=== PATIENT | female | born 1980 | race Caucasian/White ===

== ENCOUNTER → 2016-12-01 | Outpatient (CLI) | payer OTHER ==
[~2016-12-01] MED LIST: ACHD5005 PO; AGM875T PO; ALBU17AE23 IH; ALBU8.5H2 IH; ALPR1T; ALPR1T PO; ALPR1TAB; ALPR2TAB2 PO; AMOX500C2 PO; ARPZ30T PO; BUTA1TAB44 PO; CMBV14.7IN; CPR500T PO; CYCL10TA9 PO; DIAZ10TA PO; DIAZ5TAB3 PO; DOXY100C2 PO; DPH25C; HYDR-34 PO; HYDR-3720 PO; HYDR1TAB PO; HYOS0.3710 PO; IBP800T; IBP800T PO; MECL25TA3 PO; METR500T PO; NAPR-243 PO; NF-CARBAMX; ONDN4T PO; ORPH100T PO; OXYC-12 PO; PRCD5U PO; PRD20T PO; PRD50T PO; PRM25T PO; SCOP1PAT TD; SULF1TAB38 PO; TBR.3OO OU; TRM50T PO; ZPR80C PO
--- NOTE | 2016-12-01 14:03 | Diagnostic Imaging Report ---
EXAMINATION: Bilateral breast ultrasound. INDICATION: Bilateral breast pain. Swelling of the right breast. Asymmetry along the lateral aspect of the left breast. FINDINGS: The four-quadrants and retroareolar region of each breast were scanned. In the left breast at the 3 o'clock zone 7 cm from the nipple, there is a cluster of cysts seen measuring 1.3 x 0.8 x 0.9 cm in size. This is located 7 cm from the nipple. The location and size of this abnormality match the asymmetry seen on mammography. There is no suspicious solid mass seen. In the right breast at the 10 o'clock zone 7 cm from the nipple, there is a subcentimeter simple cyst seen. No suspicious lesion is noted. IMPRESSION: No suspicious abnormality. A cluster of cysts along the left breast at the 3 o'clock zone appears to explain the lateral left breast asymmetry seen on mammography with no suspicious lesion identified. No underlying lesion to explain the right breast enlargement. Clinical followup is recommended. If this is a transient inflammatory or infectious process that resolves, then no need for further imaging. If this persists, however, or is associated with suspicious clinical signs, then consider evaluation with breast MRI. ACR BI-RADS Category 2: Benign findings. Dictated by: Dictated on workstation # [id number]
--- NOTE | 2016-12-01 18:05 | Diagnostic Imaging Report ---
EXAMINATION: Bilateral diagnostic mammogram. The current study was also evaluated with a Computer Aided Detection (CAD) system. INDICATION: Right breast swelling. FINDINGS: The breasts are composed of heterogeneously dense parenchyma which may decrease mammographic sensitivity. The right breast overall appears larger compared to the left breast with no discrete mass. In the outer aspect of the left breast, there is an oval asymmetry which measures approximately 1.2 cm in length with a suggestion of a fatty hilum. Benign-appearing calcifications are noted. IMPRESSION: The right breast is overall larger compared to the left breast. There is a lateral 1.2 cm elongated left breast asymmetry. Ultrasound evaluation pending. ACR BI-RADS Category 0: Incomplete. (Needs additional imaging evaluation). Result letter will be mailed to the patient. Note: At least 10% of breast cancer is not imaged by mammography. Dictated by: Dictated on workstation # [id number]
== END ==
LOC: RAD 08:33
PROVIDERS: ATTEND Nurse Practitioner Family
DX: N60.12 Diffuse cystic mastopathy of left breast (principal)
CPT/HCPCS: 77066

== ENCOUNTER → 2018-03-04 | Outpatient (CLI) | payer OTHER ==
[~2018-03-04] MED LIST changes: -SCOP1PAT TD; +SCOP1PAT11 TD
--- NOTE | 2018-03-04 18:24 | Diagnostic Imaging Report ---
INDICATION: Fall. EXAMINATION: Three views of the left knee were obtained. FINDINGS: The alignment is normal. There are minimal degenerative changes. There is no fracture or dislocation. There is no joint effusion. IMPRESSION: Mild degenerative changes, otherwise unremarkable. Dictated by: Dictated on workstation # [id number]
== END ==
LOC: RAD 17:18
PROVIDERS: ATTEND Nurse Practitioner Family
DX: S83.095A Other dislocation of left patella, initial encounter (principal); M17.12 Unilateral primary osteoarthritis, left knee; W19.XXXA Unspecified fall, initial encounter
CPT/HCPCS: 73562

== ENCOUNTER → 2018-03-23 | Outpatient (CLI) | payer OTHER ==
--- NOTE | 2018-03-23 10:34 | Diagnostic Imaging Report ---
EXAM: US VENOUS LOWER EXT LT INDICATION: LOCALIZED EDEMA LT LOWER LEG COMPARISON: None. TECHNIQUE: Duplex, sheridan-scale and color-flow imaging of the left lower extremity venous system was performed FINDINGS: The left common femoral vein, superficial femoral vein, profunda femoris, and popliteal veins are normal. These vessels show normal compressibility, color flow, and doppler augmentation. The deep calf veins demonstrate no distinct intraluminal thrombus where seen. IMPRESSION: Negative venous Doppler of the left lower extremity. Dictated by: Dictated on workstation # [id number]
== END ==
LOC: RAD 08:48
PROVIDERS: ATTEND Nurse Practitioner Family
DX: R60.0 Localized edema (principal)

== ENCOUNTER → 2018-04-08 | Outpatient (CLI) | payer OTHER ==
--- NOTE | 2018-04-08 11:18 | Diagnostic Imaging Report ---
PROCEDURE: MRI left joint lower extremity without contrast. TECHNIQUE: Multiplanar, multisequence MR imaging of the left knee was performed without contrast. COMPARISON: Knee MRI from 07/29/2010 INDICATION: Left knee pain after injury approximately 5 weeks ago. FINDINGS: MENISCI Medial meniscus: Near-complete radial tear in the posterior horn of the medial meniscus near its root insertion. There is also horizontal cleavage tear in the undersurface of the medial meniscus adjacent to the radial tear. The body of the medial meniscus is partially extruded into the gutter. Lateral meniscus: Normal. LIGAMENTS ACL: The proximal origin of the ACL is ill-defined and has abnormal hyperintense signal around it suggestive of proximal ACL tear. Additionally, the central aspect of the ACL has an abnormal horizontal orientation suggestive of laxity. PCL: Intact. MCL: Intact. LCL: The lateral collateral ligamentous complex is intact. EXTENSOR MECHANISM The extensor mechanism is intact. CARTILAGE Medial compartment: Medial compartment articular cartilage is well preserved without focal high-grade chondromalacia. Lateral compartment: The lateral compartment articular cartilage is preserved without high-grade chondromalacia. Patellofemoral compartment: The patellofemoral articular cartilage is well preserved without high-grade chondromalacia. BONE Non-masslike bone marrow edema in the posterior aspect of the medial and lateral tibial plateaus is most compatible with bone contusions. No macroscopic fracture line. Minimal subchondral bone contusion is also present. SOFT TISSUE No knee joint effusion. Trace Garcia's cyst. IMPRESSION: 1. Complete ACL tear at its origin. 2. Near-complete radial tear in the posterior horn of the medial meniscus causing partial extrusion of the body into the medial gutter. 3. No articular cartilage injury. 4. The collateral ligaments are intact. Dictated by: Dictated on workstation # [id number]
== END ==
LOC: RAD 07:56
PROVIDERS: ATTEND Nurse Practitioner Family
DX: S83.512A Sprain of anterior cruciate ligament of left knee, initial encounter (principal); S83.242A Other tear of medial meniscus, current injury, left knee, initial encounter; S83.095D Other dislocation of left patella, subsequent encounter
CPT/HCPCS: 73721

== ENCOUNTER 2019-02-17 14:50 | Observation (INO) | payer OTHER ==
[2019-02-17] VITALS (7 sets, daily range): BP systolic 100–116; BP diastolic 59–75
[~2019-02-17] VITALS: Ht 165 cm; Wt 93.9 kg
[~2019-02-17 14:50] MED LIST changes: +RT-ALBUTEROL/IPRATROPIUM 3 ML (DUONEB) VIAL ONE
[2019-02-17] MEDS ORDERED: NS IV 1000 ML 1,000 ML IV ONE (14:59)
[2019-02-17] MEDS ORDERED: fentaNYL INJECTION 100 MCG/2 ML AMP IVP ONE (15:00)
[2019-02-17] MEDS ORDERED: RT-ALBUTEROL/IPRATROPIUM 3 ML (DUONEB) VIAL INH ONE (15:00)
[2019-02-17] MEDS ORDERED: MAGNESIUM 1 GM/100 ML IVPB 100 ML IV ONE ×2 (15:00)
[2019-02-17 15:05] LABS: BASOPHILS % (AUTO) 0 % (0-10); EOSINOPHILS # (AUTO) 0.1 10^3/uL (0.0-0.3); EOSINOPHILS % (AUTO) 1 % (0-10); HEMATOCRIT 43 % (35-52); HEMOGLOBIN 14.5 G/DL (11.5-16.0); LYMPHOCYTES # (AUTO) 2.7 X 10^3 (1.0-4.0); LYMPHOCYTES % (AUTO) 25 % (12-44); MEAN CORPUSCULAR HEMOGLOBIN 31 PG (25-34); MEAN CORPUSCULAR HGB CONC 34 G/DL (32-36); MEAN CORPUSCULAR VOLUME 90 FL (80-99); MEAN PLATELET VOLUME 10.6 FL (7.4-10.4); MONOCYTES # (AUTO) 1.1 X 10^3 (0.0-1.0); MONOCYTES % (AUTO) 11 % (0-12); NEUTROPHILS # (AUTO) 6.7 X 10^3 (1.8-7.8); NEUTROPHILS % (AUTO) 63 % (42-75); PLATELET COUNT 229 10^3/uL (130-400); RED CELL DISTRIBUTION WIDTH 13.8 % (10.0-14.5); WHITE BLOOD COUNT 10.6 10^3/uL (4.3-11.0)
--- NOTE | 2019-02-17 15:14 | Diagnostic Imaging Report ---
INDICATION: Shortness of air. TIME OF EXAM: 03:03 p.m. COMPARISON: Comparison is made with prior chest from 08/29/2015. FINDINGS: The lungs are clear. No infiltrates are seen. No effusion or pneumothorax is identified. The heart size is normal. IMPRESSION: No acute cardiopulmonary process is detected. Dictated by: Dictated on workstation # [id number]
[2019-02-17] MEDS ORDERED: OSELTAMIVIR 75 MG (TAMIFLU) CAPSULE PO ONE (15:15)
[2019-02-17] MEDS ORDERED: methylPREDNISolone 125 MG (Solu-MEDROL) VIAL IVP ONE (15:15)
[2019-02-17 15:23] LABS: ALANINE AMINOTRANSFERASE 13 U/L (0-55); ALBUMIN 4.4 GM/DL (3.2-4.5); ALKALINE PHOSPHATASE 85 U/L (40-136); BILIRUBIN,TOTAL 0.5 MG/DL (0.1-1.0); BUN/CREATININE RATIO 10; CALCIUM 9.5 MG/DL (8.5-10.1); CARBON DIOXIDE 23 MMOL/L (21-32); CHLORIDE 109 MMOL/L (98-107); GFR ESTIMATED > 60; GLUCOSE 86 MG/DL (70-105); POTASSIUM 3.2 MMOL/L (3.6-5.0); SODIUM 140 MMOL/L (135-145); TOTAL PROTEIN 7.5 GM/DL (6.4-8.2)
[2019-02-17 15:30] LABS: ABG BASE EXCESS -4.1 MMOL/L (-2.5-2.5); ABG OXYGEN SATURATION 99 % (94-100); ABG PCO2 22 MMHG (35-45); ABG PH 7.53 (7.37-7.43); ABG PO2 103 MMHG (79-93); ABG TCO2 18.9 MMOL/L (21.0-31.0)
[2019-02-17 15:33] LABS: ALLENS TEST POSITIVE
[2019-02-17 15:34] LABS: INSPIRED O2 30 L 21%; PATIENT TEMP 37.1; VENTILATOR NO
[2019-02-17 16:10] LABS: FIBRIN DEGRADATION PRODUCTS 0.95 UG/ML (0.00-0.49); PROTHROMBIN TIME PATIENT 13.7 SEC (12.2-14.7)
[2019-02-17 16:29] LABS: BILIRUBIN,URINE NEGATIVE (NEGATIVE); CLARITY,URINE CLEAR; COLOR,URINE YELLOW; GLUCOSE, URINE (UA) NEGATIVE (NEGATIVE); KETONES,URINE NEGATIVE (NEGATIVE); LEUKOCYTE ESTERASE ,URINE NEGATIVE (NEGATIVE); NITRITE,URINE NEGATIVE (NEGATIVE); PH,URINE 7 (5-9); PROTEIN,URINE NEGATIVE (NEGATIVE); UROBILINOGEN,URINE NORMAL (NORMAL)
[2019-02-17] MEDS ORDERED: ENOXAPARIN 100 MG/1 ML (LOVENOX) SYR SC ONE (16:30)
--- NOTE | 2019-02-17 16:31 | ED Respiratory ---
General Chief Complaint: Respiratory Problems Stated Complaint: SOB, FLU A+B Nursing Triage Note: PT sent from [facility] via POV with SOB. Pt was Dx with Influenza A & B on Thursday, has been on steriods and breathing Tx per [facility] nurse. Pt recieved one breathing Tx prior to arrival, is wheezing and weak on arrival. Pt denies any chest pain at this time. Source: patient, family, other (Clinic) Exam Limitations: no limitations History of Present Illness Date Seen by Provider: Feb 17, 2019 Time Seen by Provider: 16:47 Initial Comments This 38-year-old woman presents to the emergency room from Dr. Orlando's office where she was found to be in respiratory distress. She was diagnosed with both influenza A and B on February 15. She was prescribed Xofluza but was unable to get it as pharmacy did not have it in. She was also started on prednisone and clarithromycin. She is an asthmatic and a smoker. She smokes about a pack of cigarettes per day. She appears to be in distress on arrival. She has some stridor and supraclavicular retractions. She received an albuterol treatment at Dr. Orlando's clinic before presenting to the ER. She is having difficulty coughing. She has been taking Tylenol and ibuprofen at home to treat fever. Patient states there was some concern for possible pneumonia based on auscultation of her chest 2 days ago. Allergies and Home Medications Allergies Coded Allergies: iodine (Verified Allergy, Unknown, 10/23/06) ketorolac (Verified Allergy, Unknown, 07/17/08) Uncoded Allergies: CATS (Allergy, Mild, 05/15/09) SEA FOOD (Allergy, Mild, 12/25/08) Home Medications Albuterol 8.5 Gm Hfa.aer.ad, 8.5 GM IH Q4H 2 PUFFS Prescribed by: VICTORINA SOSA on 06/15/12 0702 Alprazolam 1 Mg Tablet, 1 MG PO TID PRN for ANXIETY, (Reported) Hydrocodone Bit/Acetaminophen 1 Ea Tab, 1-2 EA PO Q4-6HR PRN for PAIN FOR PAIN Prescribed by: JACQUELINE RAPP on 03/10/14 1152 Hyoscyamine Sulfate 0.375 Mg Tab.sr.12h, 1 EACH PO BID Prescribed by: JACQUELINE RAPP on 03/10/14 1151 Meclizine HCl 25 Mg Tablet, 1-2 TAB PO Q6H Prescribed by: FUAD RUBIO on 11/12/15 09 Scopolamine 1 Each Patch.td72, 1 EACH TD Q72 HOURS Prescribed by: FUAD RUBIO on 11/12/15 09 Ziprasidone 80 Mg Cap, 80 MG PO DAILY, (Reported) Patient Home Medication List Home Medication List Reviewed: Yes Review of Systems Review of Systems Constitutional: see HPI EENTM: no symptoms reported Respiratory: see HPI Cardiovascular: no symptoms reported Gastrointestinal: no symptoms reported Genitourinary: no symptoms reported : No Musculoskeletal: no symptoms reported Skin: no symptoms reported Psychiatric/Neurological: No Symptoms Reported Hematologic/Lymphatic: No Symptoms Reported Immunological/Allergic: no symptoms reported Past Jntytmw-Rqxfzv-Iuwzhh Hx Past Med/Social Hx: Reviewed and Corrections made Patient Social History Alcohol Use: Rarely Uses Recreational Drug Use: Yes (THC ) Smoking Status: Current Everyday Smoker Type Used: Cigarettes 2nd Hand Smoke Exposure: No Recent Foreign Travel: No Contact w/Someone Who Travel: No Recent Infectious Disease Expo: No Recent Hopitalizations: No Physical Abuse: No Sexual Abuse: No Mistreated: No Fear: No Immunizations Up To Date Tetanus Booster (TDap): Less than 5yrs Seasonal Allergies Seasonal Allergies: Yes Past Medical History Surgeries: Yes (RIGHT SALPINGECTOMY FOR ECTOPIC--HAS HAD 2 ECTOPIC PREGNANCIES) Section, Tubal Ligation Respiratory: Yes Asthma Cardiac: No Neurological: Yes Headaches /Migraines Reproductive Disorders: 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 4.0oz. 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, no motor/sensory deficits, alert, oriented x 3, other (anxious) Skin: normal color, warm/dry Focused Exam Lactate Level 02/17/19 14:54: Lactic Acid Level 3.44*H Lactic Acid Level Laboratory Tests Test 02/17/19 14:54 Lactic Acid Level 3.44 MMOL/L (0.50-2.00) *H Progress/Results/Core Measures Suspected Sepsis Recent Fever Within 48 Hours: No Infection Criteria Present: None New/Unexplained Altered Menta: No Sepsis Screen: No Definite Risk SIRS Temperature: Pulse: 95 Respiratory Rate: 19 Laboratory Tests 02/17/19 14:56: White Blood Count 10.6 Blood Pressure 129 /78 Mean: 95 02/17/19 14:54: Lactic Acid Level 3.44*H Laboratory Tests 02/17/19 14:56: Creatinine 0.80, Platelet Count 229, Total Bilirubin 0.5 02/17/19 15:38: INR Comment 1.0 Results/Orders Lab Results Laboratory Tests Test 02/17/19 14:54 02/17/19 14:56 02/17/19 15:21 02/17/19 15:38 Range/Units Lactic Acid Level 3.44 *H 0.50-2.00 MMOL/L White Blood Count 10.6 4.3-11.0 10^3/uL Red Blood Count 4.70 4.35-5.85 10^6/uL Hemoglobin 14.5 11.5-16.0 G/DL Hematocrit 43 35-52 % Mean Corpuscular Volume 90 80-99 FL Mean Corpuscular Hemoglobin 31 25-34 PG Mean Corpuscular Hemoglobin Concent 34 32-36 G/DL Red Cell Distribution Width 13.8 10.0-14.5 % Platelet Count 229 130-400 10^3/uL Mean Platelet Volume 10.6 H 7.4-10.4 FL Neutrophils (%) (Auto) 63 42-75 % Lymphocytes (%) (Auto) 25 12-44 % Monocytes (%) (Auto) 11 0-12 % Eosinophils (%) (Auto) 1 0-10 % Basophils (%) (Auto) 0 0-10 % Neutrophils # (Auto) 6.7 1.8-7.8 X 10^3 Lymphocytes # (Auto) 2.7 1.0-4.0 X 10^3 Monocytes # (Auto) 1.1 H 0.0-1.0 X 10^3 Eosinophils # (Auto) 0.1 0.0-0.3 10^3/uL Basophils # (Auto) 0.0 0.0-0.1 10^3/uL Sodium Level 140 135-145 MMOL/L Potassium Level 3.2 L 3.6-5.0 MMOL/L Chloride Level 109 H 98-107 MMOL/L Carbon Dioxide Level 23 21-32 MMOL/L Anion Gap 8 5-14 MMOL/L Blood Urea Nitrogen 8 7-18 MG/DL Creatinine 0.80 0.60-1.30 MG/DL Estimat Glomerular Filtration Rate > 60 BUN/Creatinine Ratio 10 Glucose Level 86 70-105 MG/DL Calcium Level 9.5 8.5-10.1 MG/DL Corrected Calcium 9.2 8.5-10.1 MG/DL Total Bilirubin 0.5 0.1-1.0 MG/DL Aspartate Amino Transf (AST/SGOT) 17 5-34 U/L Alanine Aminotransferase (ALT/SGPT) 13 0-55 U/L Alkaline Phosphatase 85 40-136 U/L C-Reactive Protein High Sensitivity 0.18 0.00-0.50 MG/DL B-Type Natriuretic Peptide 88.0 <100.0 PG/ML Total Protein 7.5 6.4-8.2 GM/DL Albumin 4.4 3.2-4.5 GM/DL Blood Gas Puncture Site RIGHT RADIAL Blood Gas Patient Temperature 37.1 Arterial Blood pH 7.53 H 7.37-7.43 Arterial Blood Partial Pressure CO2 22 L 35-45 MMHG Arterial Blood Partial Pressure O2 103 H 79-93 MMHG Arterial Blood HCO3 18 L 23-27 MMOL/L Arterial Blood Total CO2 18.9 L 21.0-31.0 MMOL/L Arterial Blood Oxygen Saturation 99 94-100 % Arterial Blood Base Excess -4.1 L -2.5-2.5 MMOL/L Ben Test POSITIVE Blood Gas Ventilator Setting NO Blood Gas Inspired Oxygen 30 L 21% Prothrombin Time 13.7 12.2-14.7 SEC INR Comment 1.0 0.8-1.4 Activated Partial Thromboplast Time 30 24-35 SEC D-Dimer 0.95 H 0.00-0.49 UG/ML My Orders Orders - VICTORINA RICARDO MD Albuterol/Ipra Inhalation Soln (Duoneb I (02/17/19 14:47) Cbc With Automated Diff (02/17/19 14:56) Comprehensive Metabolic Panel (02/17/19 14:56) Blood Culture (02/17/19 14:56) Sputum Culture (02/17/19 14:56) Urinalysis (02/17/19 14:56) Urine Culture (02/17/19 14:56) Protime With Inr (02/17/19 14:56) Partial Thromboplastin Time (02/17/19 14:56) Chest 1 View, Ap/Pa Only (02/17/19 14:56) Ed Iv/Invasive Line Start (02/17/19 14:56) Ed Iv/Invasive Line Start (02/17/19 14:56) Vital Signs Adult Sepsis Patie Q15M (02/17/19 14:56) O2 (02/17/19 14:56) Remove Rings In Anticipation O (02/17/19 14:56) Lactic Acid Analyzer (02/17/19 14:56) Albuterol/Ipra Inhalation Soln (Duoneb I (02/17/19 15:00) Svn Small Volume Nebulizer (02/17/19 14:56) Fentanyl Injection (Sublimaze Injection (02/17/19 15:00) Vapotherm - Admin Rt Rfs (02/17/19 14:56) Ns Iv 1000 Ml (Sodium Chloride 0.9%) (02/17/19 14:59) Magnesium 1 Gm/100 Ml Ivpb (Magnesium Kelly (02/17/19 15:00) Magnesium 1 Gm/100 Ml Ivpb (Magnesium Kelly (02/17/19 15:00) Arterial Blood Gas (02/17/19 15:02) BNP (02/17/19 15:02) Respiratory Virus Panel By Pcr (02/17/19 15:03) Methylprednisolone Sod Succ (Solu-Medrol (02/17/19 15:15) Hs C Reactive Protein (02/17/19 15:05) Oseltamivir 75 Mg Capsule (Tamiflu 75 (02/17/19 15:15) Arterial Blood Draw (02/17/19 ) Fibrin Degradation Products (02/17/19 14:56) Medications Given in ED Current Medications Medications Dose Ordered Sig/Ludwig Route Start Time Stop Time Status Last Admin Dose Admin Albuterol/ Ipratropium 3 ml ONCE ONCE INH 02/17/19 15:00 02/17/19 15:01 DC 02/17/19 14:55 3 ML Fentanyl Citrate 50 mcg ONCE ONCE IVP 02/17/19 15:00 02/17/19 15:01 DC 02/17/19 15:11 50 MCG Magnesium Sulfate/ Dextrose 100 ml @ 100 mls/hr ONCE ONCE IV 02/17/19 15:00 02/17/19 15:59 DC 02/17/19 15:15 100 MLS/HR Magnesium Sulfate/ Dextrose 100 ml @ 100 mls/hr ONCE ONCE IV 02/17/19 15:00 02/17/19 15:59 DC 02/17/19 16:20 100 MLS/HR Methylprednisolone Sodium Succinate 125 mg ONCE ONCE IVP 02/17/19 15:15 02/17/19 15:16 DC 02/17/19 15:19 125 MG Oseltamivir Phosphate 75 mg ONCE ONCE PO 02/17/19 15:15 02/17/19 15:16 DC 02/17/19 15:21 75 MG Sodium Chloride 1,000 ml @ 0 mls/hr Q0M ONCE IV 02/17/19 14:59 02/17/19 15:00 DC 02/17/19 15:13 0 MLS/HR Vital Signs/I&O 02/17/19 02/17/19 14:51 14:55 Temp 37.1 Pulse 95 Resp 19 B/P (MAP) 129/78 (95) Pulse Ox 100 100 O2 Delivery Room Air Room Air Capillary Refill : Less Than 3 Seconds Blood Pressure Mean: 95 Progress Note : Progress Note Patient received multiple treatments including DuoNeb, Solu-Medrol 125 mg IV, magnesium 2 g IV, and IV hydration. Vapotherm was applied. Fentanyl was given for pain. These interventions greatly improved her condition. D-dimer was obtained due to pleuritic chest pain and history of smoking. It was elevated. Patient cannot have a CT angiogram due iodine allergy. After discussing with Dr. Cruz, we decided to empirically treat with a dose of Lovenox tonight and evaluate further with lower extremity Doppler in the morning. Case was reviewed with Dr. Mckeon and Dr. Cruz. Patient will be watched in the ICU tonight. Diagnostic Imaging Diagonstic Imaging: Xray Plain Films/CT/US/NM/MRI: chest Comments Chest x-ray viewed by me and report reviewed. See report below: NAME: SOFIA MEDELLIN [facility] REC#: [id number] PT STATUS: REG ER : 1980 PHYSICIAN: IVCTORINA RICARDO MD ADMIT DATE: 02/17/19/ER Signed Date of Exam: 02/17/19 CHEST 1 VIEW, AP/PA ONLY INDICATION: Shortness of air. TIME OF EXAM: 03:03 p.m. COMPARISON: Comparison is made with prior chest from 08/29/2015. FINDINGS: The lungs are clear. No infiltrates are seen. No effusion or pneumothorax is identified. The heart size is normal. IMPRESSION: No acute cardiopulmonary process is detected. Dictated by: Dictated on workstation # [id number] Dict: 02/17/19 1510 Trans: 02/17/19 1539 Interpreted by: KAREN GARCIA MD Electronically signed by: KAREN GARCIA MD 02/17/19 1539 Departure Communication (Admissions) Time/Spoke to Admitting Phy: 15:25 Dr. Mckeon Time/Spoke to Consulting Phy: 15:00 Dr. Cruz Impression Primary Impression: Influenza A Additional Impressions: Influenza B Asthma exacerbation Qualified Codes: J45.901 - Unspecified asthma with (acute) exacerbation Anxiety Hypokalemia Elevated d-dimer Disposition: ADMITTED INPATIENT Condition: Improved Admissions Decision to Admit Reason: Admit from ER (General) Decision to Admit/Date: Feb 17, 2019 Time/Decision to Admit Time: 15:00 Departure-Patient Inst. Referrals: JASON ORLANDO MD (PCP/Family) Primary Care Physician VICTORINA RICARDO MD Feb 17, 2019 16:31
[2019-02-17 16:42] LABS: RBC,URINE RARE /HPF
[2019-02-17 16:43] LABS: BACTERIA,URINE TRACE /HPF; SQUAMOUS EPITHELIAL CELL,UR 25-50 /HPF
[2019-02-17] MEDS ORDERED: ACETAMINOPHEN 500 MG TAB (TYLENOL) PO PRN (17:30)
[2019-02-17] MEDS ORDERED: CATHETER FLUSH 10 ML SYR IV PRN (17:30)
[2019-02-17] MEDS ORDERED: RT-ALBUTEROL SULF 2.5 MG/3 ML PRE-MIX VIAL IH PRN (17:30)
[2019-02-17] MEDS ORDERED: fentaNYL INJECTION 100 MCG/2 ML AMP IV PRN (17:30)
[2019-02-17] MEDS: NS W/KCL 20 MEQ/L 1,000 ML IV SCH (17:47)
[2019-02-17] MEDS: RT-ALBUTEROL/IPRATROPIUM 3 ML (DUONEB) VIAL IH SCH ×2 (18:20→21:45)
[2019-02-17] MEDS ORDERED: ACETAMINOPHEN PO PRN (19:00)
[2019-02-17] MEDS ORDERED: [UNRECOGNIZED DRUG - OTHER] PO PRN (19:00)
[2019-02-17] MEDS ORDERED: HYDROCODONE BIT PO PRN (19:00)
[2019-02-17] MEDS ORDERED: PROMETHAZINE/ CODEINE SYRUP 5 ML UDC PO PRN (21:00)
[2019-02-17] MEDS: methylPREDNISolone 40 MG/ML (Solu-MEDROL) VIAL IV SCH (22:09)
[2019-02-17] MEDS: ALPRAZolam 1 MG (XANAX) TAB PO PRN (22:09)
[2019-02-17] MEDS: HYDROcodone/APAP 10 MG/325 MG (LORTAB) TAB PO PRN (22:10)
[2019-02-18] VITALS (8 sets, daily range): BP systolic 92–116; BP diastolic 43–79
[2019-02-18] MEDS: NS W/KCL 20 MEQ/L 1,000 ML IV SCH (00:34)
[2019-02-18] MEDS: RT-ALBUTEROL/IPRATROPIUM 3 ML (DUONEB) VIAL IH SCH ×2 (01:40→06:32)
[2019-02-18] MEDS: HYDROcodone/APAP 10 MG/325 MG (LORTAB) TAB PO PRN (02:00)
[2019-02-18] MEDS: methylPREDNISolone 40 MG/ML (Solu-MEDROL) VIAL IV SCH (03:59)
[2019-02-18 04:43] LABS: BASOPHILS % (AUTO) 0 % (0-10); EOSINOPHILS % (AUTO) 0 % (0-10); HEMATOCRIT 36 % (35-52); HEMOGLOBIN 12.1 G/DL (11.5-16.0); LYMPHOCYTES # (AUTO) 0.4 X 10^3 (1.0-4.0); LYMPHOCYTES % (AUTO) 5 % (12-44); MEAN CORPUSCULAR HEMOGLOBIN 31 PG (25-34); MEAN CORPUSCULAR HGB CONC 33 G/DL (32-36); MEAN CORPUSCULAR VOLUME 93 FL (80-99); MEAN PLATELET VOLUME 10.7 FL (7.4-10.4); MONOCYTES % (AUTO) 1 % (0-12); NEUTROPHILS # (AUTO) 7.1 X 10^3 (1.8-7.8); NEUTROPHILS % (AUTO) 95 % (42-75); PLATELET COUNT 180 10^3/uL (130-400); RED CELL DISTRIBUTION WIDTH 13.7 % (10.0-14.5); WHITE BLOOD COUNT 7.5 10^3/uL (4.3-11.0)
[2019-02-18] MEDS ORDERED: OSELTAMIVIR 75 MG (TAMIFLU) CAPSULE PO SCH ×2 (05:00→08:45)
[2019-02-18 05:15] LABS: ALANINE AMINOTRANSFERASE 13 U/L (0-55); ALBUMIN 3.9 GM/DL (3.2-4.5); ALKALINE PHOSPHATASE 65 U/L (40-136); BILIRUBIN,TOTAL 0.2 MG/DL (0.1-1.0); BUN/CREATININE RATIO 8; CALCIUM 8.1 MG/DL (8.5-10.1); CARBON DIOXIDE 17 MMOL/L (21-32); CHLORIDE 112 MMOL/L (98-107); CREATININE SERUM 0.77 MG/DL (0.60-1.30); GFR ESTIMATED > 60; GLUCOSE 142 MG/DL (70-105); PHOSPHORUS 2.2 MG/DL (2.3-4.7); POTASSIUM 4.1 MMOL/L (3.6-5.0); SODIUM 140 MMOL/L (135-145); TOTAL PROTEIN 6.2 GM/DL (6.4-8.2)
--- NOTE | 2019-02-18 05:56 | Pulmonary Consultation ---
History of Present Illness History of Present Illness Date of Consultation 02/18/19 05:51 Time Seen by Provider: 05:51 Date of Admission History of Present Illness 38yo with hx of asthma and tobacco use presented to ED from PCPs office secondary to respiratory distress and failing out pt treatment. PT was diagnosed with Influenza A and B on Thursday. She given Xofluza, clarithromycin, and prednisone. She was found to be in acute respiratory distress in the ED and required high flow Vapotherm. I am consulted for pulmonary/CC management. + Allergies and Home Medications Allergies Coded Allergies: iodine (Verified Allergy, Unknown, 10/23/06) ketorolac (Verified Allergy, Unknown, 07/17/08) Uncoded Allergies: CATS (Allergy, Mild, 05/15/09) SEA FOOD (Allergy, Mild, 12/25/08) Home Medications Albuterol 8.5 Gm Hfa.aer.ad, 8.5 GM IH Q4H 2 PUFFS Prescribed by: VICTORINA SOSA on 06/15/12 0702 Alprazolam 1 Mg Tablet, 1 MG PO TID PRN for ANXIETY, (Reported) Hydrocodone Bit/Acetaminophen 1 Ea Tab, 1-2 EA PO Q4-6HR PRN for PAIN FOR PAIN Prescribed by: JACQUELINE RAPP on 03/10/14 1152 Past Pdavnzb-Shpcks-Ddzxmb Hx Past Med/Social Hx: Reviewed and Corrections made Patient Social History Alcohol Use: Rarely Uses Recreational Drug Use: Yes (THC ) Smoking Status: Current Everyday Smoker Type Used: Cigarettes 2nd Hand Smoke Exposure: No Recent Foreign Travel: No Contact w/Someone Who Travel: No Recent Infectious Disease Expo: No Recent Hopitalizations: No Physical Abuse: No Sexual Abuse: No Mistreated: No Fear: No Immunizations Up To Date Tetanus Booster (TDap): Less than 5yrs Seasonal Allergies Seasonal Allergies: Yes Past Medical History Surgeries: Yes (RIGHT SALPINGECTOMY FOR ECTOPIC--HAS HAD 2 ECTOPIC PREGNANCIES) Section, Tubal Ligation Respiratory: Yes Asthma Cardiac: No Neurological: Yes Headaches /Migraines 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 Sexually Transmitted Disease: No HIV/AIDS: No Genitourinary: Yes Kidney Stones Gastrointestinal: No Musculoskeletal: No Endocrine: No HEENT: No Cancer: No Psychosocial: Yes (OVERDOSES) Anxiety, Suicide Attempts, Bipolar, Depression Integumentary: No Blood Disorders: No Review of Systems Time Seen by Provider: 06:05 Constitutional: Sweats, Weakness, Malaise; No: Fever, Chills, Other Eyes: No: Pain, Vision change, Conjunctivae inflammation, Eyelid inflammation, Other, Redness ENT: Nose congestion; No: Ear pain, Ear discharge, Nose pain, Nose discharge, Mouth pain, Mouth swelling, Throat pain, Throat swelling, Other Respiratory: Shortness of breath, SOB with excertion, Wheezing; No: Hemoptysis, Pleuritic Pain Cardiovascular: Palpitations, Paroxysmal Noc. Dyspnea Gastrointestinal: Nausea; No: Vomiting Sepsis Event Evaluation Height, Weight, BMI Height: 5'3" Weight: 200lbs. 4.0oz. 90.056469pq; 33.00 BMI Method:Estimated Exam Exam Vital Signs Date Time Temp Pulse Resp B/P (MAP) Pulse Ox O2 Delivery O2 Flow Rate FiO2 02/18/19 05:00 71 15 104/63 (77) 100 Room Air 02/18/19 04:50 83 27 102/66 (78) 99 Room Air 02/18/19 04:00 36.5 02/18/19 04:00 76 16 99 Room Air 02/18/19 03:00 72 17 105/58 (74) 92 Vapotherm 25.00 25.00 02/18/19 02:00 87 22 105/61 (76) 97 Vapotherm 25.00 25.00 02/18/19 01:40 97 Vapotherm 15.00 25 02/18/19 01:00 70 02/18/19 01:00 70 17 92/49 (63) 95 Vapotherm 25.00 25.00 02/18/19 00:00 85 16 93/43 (60) 93 Vapotherm 25.00 25.00 02/17/19 23:59 36.7 02/17/19 23:00 92 11 100/59 (73) 97 Vapotherm 25.00 25.00 02/17/19 22:00 84 30 110/67 (81) 100 Vapotherm 25.00 25.00 02/17/19 21:45 95 Vapotherm 25.00 25 02/17/19 21:45 84 9 100 Vapotherm 25.00 25.00 02/17/19 21:00 77 12 102/59 (73) 98 Vapotherm 10.00 21.00 02/17/19 20:00 79 15 116/74 (88) 100 Vapotherm 10.00 21.00 02/17/19 20:00 Vapotherm 02/17/19 19:00 85 02/17/19 19:00 37.0 02/17/19 19:00 85 23 110/69 (83) 90 Vapotherm 10.00 21.00 02/17/19 18:20 100 Vapotherm 10.00 21 02/17/19 18:00 82 18 110/69 (83) 99 Vapotherm 30.00 21.00 02/17/19 17:31 Vapotherm 30.00 21 02/17/19 17:05 36.8 63 15 113/75 (88) 98 Vapotherm 30.00 21.00 02/17/19 17:00 37.1 69 19 118/79 (95) 100 Room Air 02/17/19 14:55 100 Room Air 02/17/19 14:51 37.1 95 19 129/78 (95) 100 Room Air I & O 02/18/19 07:00 Intake Total 2580 ml Output Total 700 ml Balance 1880 ml Height & Weight Height: 5'3" Weight: 200lbs. 4.0oz. 90.548640rl; 33.00 BMI Method:Estimated General Appearance: Anxious, Mild Distress HEENT: PERRL/EOMI, Pharynx Normal Neck: Full Range of Motion, Non Tender, Supple Respiratory: No Accessory Muscle Use, No Respiratory Distress, Decreased Breath Sounds, Wheezing Cardiovascular: Regular Rate, Rhythm, No Edema, No Murmur Capillary Refill: Less Than 3 Seconds Gastrointestinal: normal bowel sounds, non tender, soft Extremity: Normal Capillary Refill, No Pedal Edema Neurologic/Psychiatric: Alert, Oriented x3 Skin: Normal Color, Warm/Dry Lymphatic: No Adenopathy Results Lab Laboratory Tests 02/17/19 14:56 02/18/19 04:05 Assessment/Plan Assessment/Plan Influenza -Continue Tamiflu Asthma AE -Change solumedrol to prednisone -Continue SVNs -Add advair, Singulair, and Claritin Thrush -Start Nystatin Elevated D Dimer - Doubt PE -Await bilateral dopplers -PT is 100% on RA -Will start PPX lovenox 40mg sub Q daily Nonanion gapped hyperchloremic metabolic acidosis -Monitor -D/c IVF Hypophos/hypocalcemia -Replace Anxiety BREANNA HYATT DO Feb 18, 2019 05:56
[2019-02-18] MEDS ORDERED: NYSTATIN ORAL SUSP 5 ML UDC PO SCH ×2 (06:00→09:00)
[2019-02-18] MEDS ORDERED: SODIUM PHOSPHATE INJ 30 MM in NS (IVPB) 250 ML IV ONE (06:00)
[2019-02-18] MEDS ORDERED: POTASSIUM CL 10MEQ/50ML IVPB 50 ML IV SCH (06:00)
[2019-02-18] MEDS ORDERED: MAGNESIUM 1 GM/100 ML IVPB 100 ML IV SCH (06:00)
[2019-02-18] MEDS ORDERED: ENOXAPARIN 40 MG/0.4 ML (LOVENOX) SYR SC SCH (06:00)
[2019-02-18] MEDS ORDERED: KCL 20 MEQ TAB (K-DUR) PO SCH (06:00)
[2019-02-18] MEDS ORDERED: CALCIUM GLUCONATE 10% INJ 4.65 MEQ in NS (IVPB) 50 ML IV ONE (06:15)
[2019-02-18 06:36] LABS: LYMPHOCYTES % (MANUAL) 4 %; NEUTROPHILS % (MANUAL) 96 %
[2019-02-18] MEDS ORDERED: predniSONE 20 MG TAB PO SCH ×2 (07:00)
[2019-02-18] MEDS ORDERED: RT-ADVAIR HFA 115/21 MCG PER PUFF IH SCH ×2 (08:00)
[2019-02-18] MEDS: ALPRAZolam 1 MG (XANAX) TAB PO PRN (08:11)
[2019-02-18] MEDS ORDERED: RELABEL FOR HOME USE MC SCH (08:30)
--- NOTE | 2019-02-18 08:41 | Short Stay Summary-Hospitalist ---
History of Present Illness HPI/Chief Complaint Patient is a 38-year-old female with a past medical history of persistent asthma and tobaccoism who presented to the emergency department due to respiratory distress. She was seen by her primary care provider Charline Jolley NP at Dr. Pulido's office and was diagnosed with influenza A and B on 02/15. She was given a Kenalog injection and started on clarithromycin a prednisone burst and Xofluza as an outpatient. She was unable to afford the Xofluza so was unable to take that but was compliant with her other medications. Despite this she continued to worsen and saw her TRUST ADMINISTRATIVE ASSISTANT again and was in respiratory distress at that point and directed to the ER for evaluation. She was placed on Vapotherm and improved dramatically. This morning she states she is doing well and is adamant to be discharged today. She is now on room air. Source: patient Exam Limitations: no limitations Date Seen 02/18/19 Time Seen by a Provider: 08:39 Attending Physician Krupa Mckeon MD PCP Jarvis Pulido MD Referring Physician Date of Admission Feb 17, 2019 at 3:58 pm Home Medications & Allergies Home Medications Reviewed patient Home Medication Reconciliation performed by pharmacy medication reconciliations auto body technician and/or nursing. Patients Allergies have been reviewed. Allergies Allergies Coded Allergies iodine (Verified Allergy, Unknown, 10/23/06) ketorolac (Verified Allergy, Unknown, 07/17/08) Uncoded Allergies CATS ( Allergy, Mild, 05/15/09) SEA FOOD ( Allergy, Mild, 12/25/08) Past Ulfdwjh-Epifad-Fgadde Hx Past Med/Social Hx: Reviewed and Corrections made Patient Social History Marrital Status: Alcohol Use: Rarely Uses Recreational Drug Use: Yes (THC ) Smoking Status: Current Everyday Smoker Type Used: Cigarettes 2nd Hand Smoke Exposure: No Recent Foreign Travel: No Contact w/other who traveled: No Recent Hopitalizations: No Recent Infectious Disease Expo: No Immunizations Up To Date Tetanus Booster (TDap): Less than 5yrs Seasonal Allergies Seasonal Allergies: Yes Past Medical History Surgeries: Section, Tubal Ligation Neurological: Headaches /Migraines Reproductive: Yes (ECTOPIC PREGNANCIES X 2) Sexually Transmitted Disease: No HIV/AIDS: No Tubal Ligation Genitourinary: Kidney Stones Psychosocial: Anxiety, Suicide Attempts, Bipolar, Depression History of Blood Disorders: No Family History Reviewed Nursing Family Hx Review of Systems Constitutional: malaise, weakness EENTM: hoarseness Respiratory: see HPI Cardiovascular: no symptoms reported Gastrointestinal: no symptoms reported Genitourinary: no symptoms reported Musculoskeletal: no symptoms reported Skin: no symptoms reported Psychiatric/Neurological: No Symptoms Reported Physical Exam Physical Exam Vital Signs Vital Signs - First Documented 02/17/19 02/17/19 02/17/19 14:51 17:05 17:31 Temp 37.1 Pulse 95 Resp 19 B/P (MAP) 129/78 (95) Pulse Ox 100 O2 Delivery Room Air O2 Flow Rate 30.00 21.00 FiO2 21 Capillary Refill : Less Than 3 Seconds Height, Weight, BMI Height: 5'3" Weight: 207lbs. 0.0oz. [id number]; 33.00 BMI Method:Estimated General Appearance: No Apparent Distress, WD/WN, Anxious HEENT: PERRL/EOMI, Moist Mucous Membranes Neck: Full Range of Motion, Supple; No Thyromegaly Respiratory: No Accessory Muscle Use, No Respiratory Distress, Wheezing (scant) Cardiovascular: Regular Rate, Rhythm, No Edema, No Murmur Gastrointestinal: Normal Bowel Sounds, Non Tender, Soft Extremity: Normal Capillary Refill, Non Tender, No Calf Tenderness, No Pedal Edema Neurologic/Psychiatric: Alert, Oriented x3, Normal Mood/Affect; No Aphasia, No Facial Droop Skin: Normal Color, Warm/Dry Lymphatic: No Adenopathy Results Results/Procedures Labs Laboratory Tests 02/17/19 14:56 02/18/19 04:05 Patient resulted labs reviewed. Imaging: Reviewed Imaging Report Short Stay Diagnosis Discharge Diagnosis-Short Stay Admission Diagnosis Flu A/B Final Discharge Diagnosis Flu A/B Conclusion Plan Acute Respiratory Distress Influenza A/B Asthma exacerbation Continue on Tamiflu Normal oxygen saturation on room air Will continue home inhalers and prednisone Follow up with Dr Cruz in 2 weeks Clinical Quality Measures DVT/VTE Risk/Contraindication: Risk Factor Score Per Nursin RFS Level Per Nursing on Admit: 1=Low/No VTE PPX KRUPA MCKEON MD Feb 18, 2019 08:41
--- NOTE | 2019-02-18 08:44 | Discharge Inst-Simple/Standard ---
Discharge Inst-Standard Reconcile Patient Problems Problems Reviewed?: Yes Discharge Medications New, Converted or Re-Newed RX: Other Patient Instructions/Follow Up Plan of Care/Instructions/FU: Please continue to take your medications as written. Please follow up with your PCP in the next week to follow up this hospital stay and follow up with Dr Cruz in 2 weeks. Activity as Tolerated: Yes Discharge Diet: No Restrictions Return to The Hospital For: Chest pain, shortness of breath, difficulty breathing, confusion, high fever, if you feel you are getting worse. FREDY BOCANEGRA MD Feb 18, 2019 8:44 am
[2019-02-18] MEDS ORDERED: LORATADINE (CLARITIN) 10 MG TAB PO SCH (09:00)
[2019-02-18] MEDS ORDERED: HYDR-3820 PO (09:05)
[2019-02-18] MEDS ORDERED: CLAR-19 PO (09:05)
[2019-02-18] MEDS ORDERED: BUDE10.2 INH (09:05)
[2019-02-18] MEDS ORDERED: LORA10TA76 PO (09:05)
[2019-02-18] MEDS ORDERED: PRD20T PO (09:05)
[2019-02-18] MEDS ORDERED: RT-ALBUINH IH (09:05)
[2019-02-18] MEDS ORDERED: MELO15TA39 PO (09:05)
[2019-02-18] MEDS ORDERED: ALPR1TAB7 PO (09:05)
[2019-02-18] MEDS ORDERED: ALBU2.5V4 NEB (09:05)
--- NOTE | 2019-02-18 09:05 | NUR ---
SPOKE WITH THE PATIENT ABOUT HER MEDICATIONS. WE WENT OVER THE EXT MED HX AND SHE VERIFIED HOW SHE TAKES THEM. SHE STATES SHE HAS NOT PICKED UP THE SYMBICORT INHALER YET BUT THEY DID NOTIFY HER THEY GOT THE COUPON CARD TO GO THROUGH SO IT IS READY FOR MACHINE ADJUSTER WHEN SHE IS DISCHARGED WITH NO COPAY. SHE STATES SHE TAKES CLARITIN DAILY OTC AND ALSO REPORTS SHE HAS A PROAIR INHALER ON HAND AT HOME NEEDED.
[2019-02-18] MEDS ORDERED: OSLT75C PO (09:34)
--- NOTE | 2019-02-18 09:45 | Diagnostic Imaging Report ---
PROCEDURE: US Venous Lower Ext Jeremy. TECHNIQUE: Multiple real-time grayscale images were obtained over the lower extremities in various projections, bilaterally. Additional duplex Doppler and color Doppler images were also obtained. INDICATION: Influenza as well as asthma exacerbation and leg pain. FINDINGS: There is no evidence of right or left lower extremity DVT. Both lower extremity deep venous systems demonstrate normal compressibility, normal response to augmentation and Valsalva. No fluid collection or mass is detected. IMPRESSION: No evidence of right or left lower extremity DVT. Dictated by: Dictated on workstation # [id number]
--- NOTE | 2019-02-18 09:56 | NUR ---
Pt discharged via w/c to private vehicle. She took out her own IV. Placed it on BST and cannula is intact. No bleeding noted. She states she is "just ready to go." Tamiflu box given to patient with instructions. She voiced no further needs. She states that she already has an appointment on Thursday with Dr. Pulido. Initial paperwork from Dr. Cruz's office given to patient. All personal belongings taken by the patients .
[2019-02-18] MEDS ORDERED: MONTELUKAST 10 MG (SINGULAIR) TAB PO SCH (21:00)
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
--- OUTSIDE RECORDS SUMMARY | 2019-03-11 09:19 | XMS REPORT ---
Author Author ADEEL OLIVEIRA [facility] Address [address] [place] [address] Care Team Providers Care Senior Portfolio Manager Name Role Phone ADEEL OLIVEIRA Unavailable PROBLEMS Type Condition ICD9-CM Code YCD83-[id number] Code Onset Dates Condition Status SNOMED Code Problem Allergic rhinitis, unspecified J30.9 Active 45297784 Problem Rash R21 Active 183506449 Problem Acute upper respiratory infection, unspecified J06.9 Active 55638307 Problem Weight gain R63.5 Active 6677191 Problem Anxiety 300.00 Active 93770320 Problem Physical exam Z00.00 Active 055487323 Problem Tobacco abuse Z72.0 Active 42455199 ALLERGIES Unknown Allergies SOCIAL HISTORY No smoking Hx information available PLAN OF CARE VITAL SIGNS MEDICATIONS Medication Instructions Dosage Frequency Start Date End Date Duration Status Xanax 2 MG Orally as needed 4 times a day 1 tablet 6h Nov, Active RESULTS No Results PROCEDURES No Known procedures IMMUNIZATIONS No Known Immunizations
--- OUTSIDE RECORDS SUMMARY | 2019-03-11 09:19 | XMS REPORT ---
Author Author HUEY CARRINGTON [employer] Address Unknown Phone Unavailable Care Team Providers Care Journeyman Electrician Pv Installer Name Role Phone HUEY CARRINGTON CP Unavailable Allergies No Known Allergies Problems Problem Type Condition Code Onset Dates Condition Status Assessment Mixed hyperlipidemia E78.2 Active Assessment Elevated liver enzymes R74.8 Active Problem Acute upper respiratory infection, unspecified J06.9 Active Problem Physical exam Z00.00 Active Problem Rash R21 Active Problem Anxiety 300.00 Active Problem Allergic rhinitis, unspecified J30.9 Active Problem Tobacco abuse Z72.0 Active Problem Weight gain R63.5 Active Medications No Known Medications Results No Known Results Summary Purpose [employer]Clinical[employer] Submission
--- OUTSIDE RECORDS SUMMARY | 2019-03-11 09:19 | XMS REPORT ---
Author Author ADEEL OLIVEIRA [facility] Address [address] [place] [address] Care Team Providers Care Basting Machine Operator Name Role Phone ADEEL OLIVEIRA Unavailable PROBLEMS Type Condition ICD9-CM Code [id number] Code Onset Dates Condition Status SNOMED Code Assessment Exposure to strep throat Z20.818 Feb, Active 5870894614196 Problem Allergic rhinitis, unspecified J30.9 Active 36157792 Assessment Upper respiratory tract infection, unspecified type J06.9 Feb, Active 46612478 Problem Rash R21 Active 061970058 Problem Acute upper respiratory infection, unspecified J06.9 Active 49268165 Problem Weight gain R63.5 Active 8332030 Problem Anxiety 300.00 Active 26781030 Problem Physical exam Z00.00 Active 273500558 Problem Tobacco abuse Z72.0 Active 47721280 ALLERGIES Substance Reaction Event Type Date Status Ketorolac Tromethamine hives Drug Allergy Feb, Active Iodine anaphylaxis Drug Allergy Feb, Active Remeron 15 Mg Tablet night terrors Non Drug Allergy Feb, Active SOCIAL HISTORY No smoking Hx information available PLAN OF CARE VITAL SIGNS Height 65 in 2016-03-04 Weight 190.7 lbs 2016-03-04 Heart Rate 76 bpm 2016-03-04 Respiratory Rate 18 2016-03-04 BMI 31.73 kg/m2 2016-03-04 Blood pressure systolic 126 mmHg 2016-03-04 Blood pressure diastolic 80 mmHg 2016-03-04 MEDICATIONS Medication Instructions Dosage Frequency Start Date End Date Duration Status Abilify 10 MG Orally Once a day 1 tablet 24h Nov, 30 days Active Amoxicillin 500 MG Orally tid 1 capsule 8h Feb, Mar, 07 days Active Xanax 2 MG Orally as needed Twice a day 1 tablet 12h Nov, Active Flonase 50 MCG/ACT Nasally Once a day 2 sprays in each nostril 24h Mar, Active Albuterol Sulfate HFA 108 (90 Base) MCG/ACT Inhalation every 4 hrs 2 puffs as needed 4h Active Promethazine-Codeine 6.25-10 MG/5ML Orally every 4 hrs, prn cough 1-2 tsp 27 Feb, 2016 Active RESULTS No Results PROCEDURES Procedure Date Ordered Related Diagnosis Body Site Office Visit, Est Pt., Level 2 Mar 04, 2016 IMMUNIZATIONS No Known Immunizations
--- OUTSIDE RECORDS SUMMARY | 2019-03-11 09:19 | XMS REPORT ---
Author Author LARISSA KIRK Organization [facility] Address Unknown Care Team Providers Care Floor Winder Name Role Phone REAGANLARISSA Unavailable PROBLEMS Type Condition ICD9-CM Code [id number] Code Onset Dates Condition Status SNOMED Code Assessment Borderline personality disorder in adult F60.3 Feb, Active 69284440 Problem Allergic rhinitis, unspecified J30.9 Active 15131273 Assessment Generalized anxiety disorder F41.1 Feb, Active 38154836 Problem Rash R21 Active 529335761 Problem Acute upper respiratory infection, unspecified J06.9 Active 68238490 Problem Weight gain R63.5 Active 1080457 Problem Anxiety 300.00 Active 42777229 Problem Physical exam Z00.00 Active 055269525 Problem Tobacco abuse Z72.0 Active 99554862 ALLERGIES Substance Reaction Event Type Date Status Ketorolac Tromethamine hives Drug Allergy Feb, Active Iodine anaphylaxis Drug Allergy Feb, Active Remeron 15 Mg Tablet night terrors Non Drug Allergy Feb, Active SOCIAL HISTORY No smoking Hx information available PLAN OF CARE VITAL SIGNS Height 65 in 2016-03-03 Weight 193.7 lbs 2016-03-03 Heart Rate 80 bpm 2016-03-03 Respiratory Rate 18 2016-03-03 BMI 32.23 kg/m2 2016-03-03 Blood pressure systolic 120 mmHg 2016-03-03 Blood pressure diastolic 80 mmHg 2016-03-03 MEDICATIONS Medication Instructions Dosage Frequency Start Date End Date Duration Status Abilify 10 MG Orally Once a day 1 tablet 24h Nov, 30 days Active Xanax 2 MG Orally as needed Twice a day 1 tablet 12h Nov, Active Flonase 50 MCG/ACT Nasally Once a day 2 sprays in each nostril 24h Mar, Active Albuterol Sulfate HFA 108 (90 Base) MCG/ACT Inhalation every 4 hrs 2 puffs as needed 4h Active RESULTS No Results PROCEDURES Procedure Date Ordered Related Diagnosis Body Site MH Office Visit, Est Pt., Level 3 Mar 03, 2016 IMMUNIZATIONS No Known Immunizations
--- OUTSIDE RECORDS SUMMARY | 2019-03-11 09:19 | XMS REPORT ---
Author Author TIMOTEO BERGER [facility] [employer] Address Unknown Phone Unavailable Care Team Providers Care Clothing Sorter Name Role Phone TIMOTEO BERGER Unavailable Allergies, Adverse Reactions, Alerts Substance Reaction Event Type Ketorolac Tromethamine hives Drug Allergy Iodine anaphylaxis Drug Allergy Remeron 15 Mg Tablet night terrors Non Drug Allergy Problems Problem Type Condition Code Onset Dates Condition Status Assessment Major depressive disorder, recurrent, mild F33.0 Active Assessment Anxiety disorder, unspecified F41.9 Active Assessment Tobacco abuse Z72.0 Active Problem Acute upper respiratory infection, unspecified J06.9 Active Problem Physical exam Z00.00 Active Problem Rash R21 Active Problem Anxiety 300.00 Active Problem Allergic rhinitis, unspecified J30.9 Active Problem Tobacco abuse Z72.0 Active Problem Weight gain R63.5 Active Medications Medication Code System Code Instructions Start Date End Date Status Dosage Xanax [facility] [address]-86 2 MG Orally 4 times a day PRN anxiety August 25, 2014 1 tablet Triamcinolone & Emollient NDC 0 0.1 % Externally 3 times a day Jun 19, 2015 2015 apply NyQuil NDC 0 not defined Claritin [facility] [address]-19 10 MG Orally Once a day Jun 19, 2015 August 18, 2015 1 tablet Wellbutrin SR [facility] [address]-79 150 MG Orally Once a day Jun 20, 2015 2 tablet Mucinex DM [facility] [address]-94 30-600 MG Orally every 12 hrs 1 tablet as needed Flonase [facility] [address]-78 50 MCG/ACT Nasally Once a day Mar 15, 2015 2 sprays in each nostril Albuterol Sulfate HFA [facility] [address]-86 108 (90 Base) MCG/ACT Inhalation every 4 hrs 2 puffs as needed Rexulti [facility] [address]-69 0.5 MG Orally Once a day Jun 29, 2015 1 tablet Nicorette [facility] [address]-97 2 MG Mouth/Throat 24 time(s) a day Jun 19, 2015 Jul 19, 2015 1 piece as needed Procedures Procedure Coding System Code Date Office Visit, Est Pt., Level 3 CPT-4 98313 Jun 29, 2015 Vital Signs Date/Time: Jun 29, 2015 Blood Pressure Systolic 118 mmHg Weight 195.6 lbs Height 65 in BMI 32.55 Index Blood Pressure Diastolic 78 mmHg Results No Known Results Summary Purpose [employer] Submission
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
--- OUTSIDE RECORDS SUMMARY | 2019-03-11 09:19 | XMS REPORT ---
Author Author TIMOTEO BERGER [facility] eClinicalWorks Address Unknown Phone Unavailable Care Team Providers Care Vice President Of [employer] Name Role Phone TIMOTEO BERGER Unavailable Allergies No Known Allergies Problems Problem Type Condition Code Onset Dates Condition Status Problem Acute upper respiratory infection, unspecified J06.9 Active Problem Physical exam Z00.00 Active Problem Rash R21 Active Problem Anxiety 300.00 Active Problem Allergic rhinitis, unspecified J30.9 Active Problem Tobacco abuse Z72.0 Active Problem Weight gain R63.5 Active Medications No Known Medications Results No Known Results Summary Purpose eClinicalWorks Submission
--- OUTSIDE RECORDS SUMMARY | 2019-03-11 09:19 | XMS REPORT ---
Author Author MASHA ANGULO [facility] eClinicalWorks Address Unknown Phone Unavailable Care Team Providers Care Correctional Agency Director Name Role Phone MASHA ANGULO CP Unavailable Allergies, Adverse Reactions, Alerts Substance Reaction Event Type Ketorolac Tromethamine hives Drug Allergy Iodine anaphylaxis Drug Allergy Remeron 15 Mg Tablet night terrors Non Drug Allergy Problems Problem Type Condition Code Onset Dates Condition Status Problem Unspecified disorders of bursae and tendons in shoulder region 726.10 Active Problem Diarrhea 787.91 Active Problem Other and unspecified bipolar disorders 296.89 Active Problem Pain in joint, shoulder region 719.41 Active Problem Abdominal pain, unspecified site 789.00 Active Problem Allergic rhinitis, unspecified J30.9 Active Problem Wheezing 786.07 Active Problem Acute sinusitis, unspecified 461.9 Active Problem Nausea alone 787.02 Active Problem Pain in joint, lower leg 719.46 Active Problem Pain in joint, ankle and foot 719.47 Active Problem Unspecified pruritic disorder 698.9 Active Assessment Allergic rhinitis J30.9 Active Assessment Cough R05 Active Problem Screening examination for venereal disease V74.5 Active Problem Pain in soft tissues of limb 729.5 Active Problem Screening for malignant neoplasm of the cervix V76.2 Active Problem Lumbago 724.2 Active Problem Dysmenorrhea 625.3 Active Problem Sprain and strain of unspecified site of back 847.9 Active Medications Medication Code System Code Instructions Start Date End Date Status Dosage PredniSONE [facility] [address]-14 20 MG Orally Once a day May 29, 2015 Jun 03, 2015 as directed Flonase [facility] [address]-82 50 MCG/ACT Nasally Once a day Mar 15, 2015 2 sprays in each nostril Albuterol Sulfate HFA [facility] [address]-01 108 (90 Base) MCG/ACT Inhalation every 4 hrs 2 puffs as needed Xanax [facility] [address]-48 2 MG Orally 4 times a day PRN anxiety August 25, 2014 1 tablet Procedures Procedure Coding System Code Date INFLUENZA ASSAY W/OPTIC CPT-4 16252 May 29, 2015 Office Visit, Est Pt., Level 3 CPT-4 48437 May 29, 2015 MEASURE BLOOD OXYGEN LEVEL CPT-4 17561 May 29, 2015 Vital Signs Date/Time: May 29, 2015 Temperature 97.8 F Weight 195.6 lbs Height 65 in Oximetry 100 % Blood Pressure Diastolic 62 mmHg Blood Pressure Systolic 94 mmHg Cardiac Monitoring Heart Rate 66 bpm BMI 32.55 Index Results Name Result Date Reference Range Unit Abnormality Flag INFLUENZA A & B (IN HOUSE) ----Exp date 01/12/201720150529 ----INFLUENZA A negative [id number] ----INFLUENZA B negative [id number] ----Control + [id number] ----Lot # [id number] Summary Purpose eClinicalWorks Submission
--- OUTSIDE RECORDS SUMMARY | 2019-03-11 09:19 | XMS REPORT ---
Author Author SAMPSON VIZCAINO [facility] eClinicalWorks Address Unknown Phone Unavailable Care Team Providers Care Privacy Officer Name Role Phone SAMPSON VIZCAINO CP Unavailable Allergies, Adverse Reactions, Alerts Substance [...] Problem Unspecified pruritic disorder 698.9 Active Assessment Generalized anxiety disorder F41.1 Active Problem Screening examination for venereal disease V74.5 Active Problem Pain in soft tissues of limb 729.5 Active Problem Screening for malignant neoplasm of the cervix V76.2 Active Problem Lumbago 724.2 Active Problem Dysmenorrhea 625.3 Active Problem Sprain and strain of unspecified site of back 847.9 Active Medications Medication Code System Code Instructions Start Date End Date Status Dosage Xanax [facility] [address]-09 2 MG Orally 4 times a day PRN anxiety August 25, 2014 1 tablet Zofran ODT [facility] [address]-27 4 MG Orally every 8 hrs Mar 27, 2015 1 tablet on the tongue and allow to dissolve Albuterol Sulfate HFA [facility] [address]-69 108 (90 Base) MCG/ACT Inhalation every 4 hrs 2 puffs as needed Flagyl [facility] [address]-55 500 MG Orally 2 times a day Mar 27, 2015 Apr 03, 2015 1 tablet Procedures Procedure Coding System Code Date MH Office Visit, Est Pt., Level 3 CPT-4 15446 Mar 30, 2015 Vital Signs Date/Time: Mar 30, 2015 Cardiac Monitoring Heart Rate 68 bpm Weight 185.0 lbs Height 65 in BMI 30.78 Index Blood Pressure Diastolic 76 mmHg Blood Pressure Systolic 110 mmHg Results No Known Results Summary Purpose eClinicalWorks Submission
--- OUTSIDE RECORDS SUMMARY | 2019-03-11 09:19 | XMS REPORT ---
Author Author LARISSA KIRK Organization eClinicalWorks Address Unknown Phone Unavailable Care Team Providers Care Buckle Wire Inserter Name Role Phone LARISSA KIRK CP Unavailable Allergies No Known Allergies Problems [...] Start Date End Date Status Dosage Xanax [facility] [address]-77 2 MG Orally as needed Twice a day November 28, 2015 1 tablet Results No Known Results Summary Purpose eClinicalWorks Submission
--- OUTSIDE RECORDS SUMMARY | 2019-03-11 09:19 | XMS REPORT ---
Author Author BRENNEN RENTERIA Organization [facility] Address [address] [place] [address] Care Team Providers Care Viscera Washer Name Role Phone BRENNEN RENTERIA Unavailable PROBLEMS Type Condition ICD9-CM Code [id number] Code Onset Dates Condition Status SNOMED Code Problem Anxiety 300.00 Active 87689724 Problem Weight gain R63.5 Active 8079101 Problem Tobacco abuse Z72.0 Active 79322854 Problem Allergic rhinitis, unspecified J30.9 Active 18290810 Problem Migraine without aura and without status migrainosus, not intractable G43.009 Active 209903989 Problem Generalized anxiety disorder F41.1 Active 18154425 Problem Rash R21 Active 840456156 Problem Physical exam Z00.00 Active 530604180 Problem Major depressive disorder, recurrent, mild F33.0 Active 59410151 Problem Acute upper respiratory infection, unspecified J06.9 Active 85022876 ALLERGIES No Known Allergies SOCIAL HISTORY No smoking Hx information available PLAN OF CARE VITAL SIGNS MEDICATIONS No Known Medications RESULTS No Results PROCEDURES Procedure Date Ordered Related Diagnosis Body Site ZOFRAN (IM) 2 MG/ML (PER 1 MG) 40 MG/20 ML Jul 08, 2016 THER/PROPH/DIAG INJ, SC/IM Jul 08, 2016 IMMUNIZATIONS Vaccine Route Administration Date Status ZOFRAN (IM) 2 MG/ML (PER 1 MG) 40 MG/20 ML IM Intramuscular Jul 08, 2016 Administered
--- OUTSIDE RECORDS SUMMARY | 2019-03-11 09:20 | XMS REPORT ---
Author Author TIMOTEO BERGER Organization eClinicalWorks Address Unknown Phone Unavailable Care Team Providers Care Senior Design Engineering Specialist Name Role Phone TIMOETO BERGER Unavailable Allergies No Known Allergies Problems [...] Active Problem Unspecified pruritic disorder 698.9 Active Problem Screening examination for venereal disease V74.5 Active Problem Pain in soft tissues of limb 729.5 Active Problem Screening for malignant neoplasm of the cervix V76.2 Active Problem Lumbago 724.2 Active Problem Dysmenorrhea 625.3 Active Problem Sprain and strain of unspecified site of back 847.9 Active Medications No Known Medications Results No Known Results Summary Purpose eClinicalWorks Submission
--- OUTSIDE RECORDS SUMMARY | 2019-03-11 09:20 | XMS REPORT ---
Author Author HUEY CARRINGTON Organization eClinicalWorks Address Unknown Phone Unavailable Care Team Providers Care Patrol Officer Name Role Phone HUEY CARRINGTON CP Unavailable Allergies No Known Allergies Problems Problem Type Condition Code Onset Dates Condition Status Problem Pain in joint, lower leg 719.46 Active Problem Pain in joint, ankle and foot 719.47 Active Problem Nausea alone 787.02 Active Problem Unspecified pruritic disorder 698.9 Active Problem Abdominal pain, unspecified site 789.00 Active Problem Allergic rhinitis, unspecified J30.9 Active Problem Pain in joint, shoulder region 719.41 Active Problem Rash R21 Active Problem Acute upper respiratory infection, unspecified J06.9 Active Problem Screening examination for venereal disease V74.5 Active Problem Dysmenorrhea 625.3 Active Problem Pharyngitis J02.9 Active Problem Screening for malignant neoplasm of the cervix V76.2 Active Problem Weight gain R63.5 Active Problem Anxiety 300.00 Active Problem Physical exam Z00.00 Active Problem Tobacco abuse Z72.0 Active Problem Sprain and strain of unspecified site of back 847.9 Active Problem Unspecified disorders of bursae and tendons in shoulder region 726.10 Active Problem Pain in soft tissues of limb 729.5 Active Problem Lumbago 724.2 Active Problem Acute sinusitis, unspecified 461.9 Active Problem Wheezing 786.07 Active Problem Other and unspecified bipolar disorders 296.89 Active Problem Diarrhea 787.91 Active Medications No Known Medications Results No Known Results Summary Purpose eClinicalWorks Submission
--- OUTSIDE RECORDS SUMMARY | 2019-03-11 09:20 | XMS REPORT ---
Author Author LARISSA KIRK Organization eClinicalWorks Address Unknown Phone Unavailable Care Team Providers Care Blade Boner Name Role Phone LARISSA KIRK CP Unavailable [...] Start Date End Date Status Dosage Xanax [facility] [address]-72 2 MG Orally as needed Twice a day November 28, 2015 1 tablet Results No Known Results Summary Purpose eClinicalWorks Submission
--- OUTSIDE RECORDS SUMMARY | 2019-03-11 09:20 | XMS REPORT ---
Author Author LARISSA KIRK Organization [facility] Address Unknown Care Team Providers Care B2B Account Executive Name Role Phone LARISSA KIRK Unavailable PROBLEMS Type Condition ICD9-CM Code PTO73-HV Code Onset Dates Condition Status SNOMED Code Problem Anxiety 300.00 Active 02420534 Problem Tobacco abuse Z72.0 Active 05093345 Problem Weight gain R63.5 Active 4908932 Problem Allergic rhinitis, unspecified J30.9 Active 52595020 Problem Migraine without aura and without status migrainosus, not intractable G43.009 Active 678977663 Problem Generalized anxiety disorder F41.1 Active 89629317 Problem Acute upper respiratory infection, unspecified J06.9 Active 75891178 Problem Physical exam Z00.00 Active 895387162 Problem Major depressive disorder, recurrent, mild F33.0 Active 31834777 Problem Rash R21 Active 600763752 ALLERGIES No Known Allergies SOCIAL HISTORY No smoking Hx information available PLAN OF CARE VITAL SIGNS MEDICATIONS Medication Instructions Dosage Frequency Start Date End Date Duration Status Xanax 2 MG Orally as needed 4 times a day 1 tablet 6h Nov, Active RESULTS No Results PROCEDURES No Known procedures IMMUNIZATIONS No Known Immunizations
--- OUTSIDE RECORDS SUMMARY | 2019-03-11 09:20 | XMS REPORT ---
Author Author TIMOTEO BERGER Organization eClinicalWorks Address Unknown Phone Unavailable Care Team Providers Care Research Development Director Name Role Phone TIMOTEO BERGER Unavailable Allergies [...]
--- OUTSIDE RECORDS SUMMARY | 2019-03-11 09:20 | XMS REPORT ---
Author Author HUEY CARRINGTON [employer] Address Unknown Phone Unavailable Care Team Providers Care Online Communications Manager Name Role Phone HUEY CARRINGTON CP Unavailable Allergies, Adverse Reactions, Alerts Substance [...] Pain in joint, shoulder region 719.41 Active Assessment Gastroenteritis K52.9 Active Problem Abdominal pain, unspecified site 789.00 Active Problem Allergic rhinitis, unspecified J30.9 Active Problem Wheezing 786.07 Active Problem Acute sinusitis, unspecified 461.9 Active Problem Nausea alone 787.02 Active Problem Pain in joint, lower leg 719.46 Active Problem Pain in joint, ankle and foot 719.47 Active Problem Unspecified pruritic disorder 698.9 Active Assessment Nausea and vomiting, vomiting of unspecified type R11.2 Active Assessment Left lower quadrant pain R10.32 Active Problem Screening examination for venereal disease V74.5 Active Problem Pain in soft tissues of limb 729.5 Active Problem Screening for malignant neoplasm of the cervix V76.2 Active Problem Lumbago 724.2 Active Problem Dysmenorrhea 625.3 Active Problem Sprain and strain of unspecified site of back 847.9 Active Medications Medication Code System Code Instructions Start Date End Date Status Dosage Zofran ODT [facility] [address]-39 4 MG Orally every 8 hrs Mar 27, 2015 1 tablet on the tongue and allow to dissolve Xanax [facility] [address]-39 2 MG Orally 4 times a day PRN anxiety August 25, 2014 1 tablet Flagyl [facility] [address]-41 500 MG Orally 2 times a day Mar 27, 2015 Apr 03, 2015 1 tablet Albuterol Sulfate HFA [facility] [address]-31 108 (90 Base) MCG/ACT Inhalation every 4 hrs 2 puffs as needed Procedures Procedure Coding System Code Date Office Visit, Est Pt., Level 3 CPT-4 65304 Mar 27, 2015 Vital Signs Date/Time: Mar 27, 2015 Temperature 97.4 F Weight 181.4 lbs Height 65 in BMI 30.18 Index Blood Pressure Diastolic 60 mmHg Blood Pressure Systolic 120 mmHg Cardiac Monitoring Heart Rate 90 bpm Results No Known Results Summary Purpose eClinicalWorks Submission
--- OUTSIDE RECORDS SUMMARY | 2019-03-11 09:20 | XMS REPORT ---
Author Author TIMOTEO BERGER Organization [employer]ClinicalWorks Address Unknown Phone Unavailable Care Team Providers Care Tucking Machine Operator Name Role Phone TIMOTEO BERGER Unavailable Allergies [...] Start Date End Date Status Dosage Xanax [facility] [address]-50 2 MG Orally 4 times a day PRN anxiety August 25, 2014 1 tablet Results No Known Results Summary Purpose eClinicalWorks Submission
--- OUTSIDE RECORDS SUMMARY | 2019-03-11 09:20 | XMS REPORT ---
Author Author SARAH CAMACHO Organization eClinicalWorks Address Unknown Phone Unavailable Care Team Providers Care Entry Level Administrative Assistant Name Role Phone SARAH CAMACHO CP Unavailable Allergies, Adverse Reactions, Alerts Substance Reaction Event Type Ketorolac Tromethamine hives Drug Allergy Iodine anaphylaxis Drug Allergy Remeron 15 Mg Tablet night terrors Non Drug Allergy Problems Problem Type Condition Code Onset Dates Condition Status Assessment Acute upper respiratory infection, unspecified J06.9 Active Assessment Rash R21 Active Assessment Pharyngitis J02.9 Active Problem Pain in joint, lower leg [...] 296.89 Active Problem Diarrhea 787.91 Active Medications Medication Code System Code Instructions Start Date End Date Status Dosage Acyclovir [facility] [address]-10 800 MG Orally Five times a day Jun 18, 2015 1 tablet Flonase [facility] [address]-02 50 MCG/ACT Nasally Once a day Mar 15, 2015 2 sprays in each nostril NyQuil NDC 0 not defined Albuterol Sulfate HFA [facility] [address]-74 108 (90 Base) MCG/ACT Inhalation every 4 hrs 2 puffs as needed DayQuil Multi-Symptom NDC 0 not defined Xanax [facility] [address]-11 2 MG Orally 4 times a day PRN anxiety August 25, 2014 1 tablet Procedures Procedure Coding System Code Date STREP A ASSAY W/OPTIC CPT-4 04933 Jun 18, 2015 Office Visit, Est Pt., Level 3 CPT-4 86140 Jun 18, 2015 MEASURE BLOOD OXYGEN LEVEL CPT-4 42583 Jun 18, 2015 Vital Signs Date/Time: Jun 18, 2015 Temperature 98.8 F Weight 200 lbs Height 65 in Oximetry 100 % Blood Pressure Diastolic 78 mmHg Blood Pressure Systolic 122 mmHg Cardiac Monitoring Heart Rate 76 bpm BMI 33.28 Index Results Name Result Date Reference Range Unit Abnormality Flag STREP A (IN HOUSE) ----STREP A Negative [id number] ----Control + [id number] ----Lot # [id number] ----Exp date 11/01/1620150618 Summary Purpose eClinicalWorks Submission
--- OUTSIDE RECORDS SUMMARY | 2019-03-11 09:20 | XMS REPORT ---
Author Author BRENNEN RENTERIA [facility] Address [address] [place] [address] Care Team Providers Care Framework Developer Name Role Phone BRENNEN RENTERIA Unavailable PROBLEMS Type Condition ICD9-CM Code [id number] Code Onset Dates Condition Status SNOMED Code Problem Anxiety 300.00 Active 44287993 Problem Weight gain R63.5 Active 3214835 Problem Tobacco abuse Z72.0 Active 29451735 Problem Allergic rhinitis, unspecified J30.9 Active 11727086 Problem Migraine without aura and without status migrainosus, not intractable G43.009 Active 684970376 Problem Generalized anxiety disorder F41.1 Active 79014819 Problem Rash R21 Active 190868551 Problem Physical exam Z00.00 Active 036937737 Problem Major depressive disorder, recurrent, mild F33.0 Active 96270884 Problem Acute upper respiratory infection, unspecified J06.9 Active 67127195 ALLERGIES No Known Allergies SOCIAL HISTORY No smoking Hx information available PLAN OF CARE VITAL SIGNS MEDICATIONS No Known Medications RESULTS No Results PROCEDURES No Known procedures IMMUNIZATIONS No Known Immunizations
--- OUTSIDE RECORDS SUMMARY | 2019-03-11 09:20 | XMS REPORT ---
Author Author BRENNEN RENTERIA Organization [facility] Address [address] [place] [address] Care Team Providers Care Millwright Helper Name Role Phone BRENNEN RENTERIA Unavailable PROBLEMS Type Condition ICD9-CM Code PED03-WY Code Onset Dates Condition Status SNOMED Code Problem Anxiety 300.00 Active 85025591 Problem Weight gain R63.5 Active 5129472 Problem Tobacco abuse Z72.0 Active 77910496 Problem Allergic rhinitis, unspecified J30.9 Active 61999784 Problem Migraine without aura and without status migrainosus, not intractable G43.009 Active 879442073 Problem Generalized anxiety disorder F41.1 Active 71436718 Problem Rash R21 Active 774765949 Problem Physical exam Z00.00 Active 883800682 Problem Major depressive disorder, recurrent, mild F33.0 Active 29897004 Problem Acute upper respiratory infection, unspecified J06.9 Active 32947055 ALLERGIES No Known Allergies SOCIAL HISTORY No smoking Hx information available PLAN OF CARE VITAL SIGNS MEDICATIONS Medication Instructions Dosage Frequency Start Date End Date Duration Status Zofran 8 MG Orally 3 times a day as needed 1 tablet Jun, 30 day(s) Active RESULTS No Results PROCEDURES No Known procedures IMMUNIZATIONS No Known Immunizations
--- OUTSIDE RECORDS SUMMARY | 2019-03-11 09:20 | XMS REPORT ---
Author Author LARISSA KIRK Organization eClinicalWorks Address Unknown Phone Unavailable Care Team Providers Care Ict Sales Representative Name Role Phone LARISSA KIRK CP Unavailable [...] Start Date End Date Status Dosage Xanax [facility] [address]-43 2 MG Orally as needed 4 times a day November 28, 2015 1 tablet Results No Known Results Summary Purpose eClinicalWorks Submission
--- OUTSIDE RECORDS SUMMARY | 2019-03-11 09:20 | XMS REPORT ---
Author Author HUEY CARRINGTON Organization eClinicalWorks Address Unknown Phone Unavailable Care Team Providers Care Car Supplier Name Role Phone HUEY CARRINGTON CP Unavailable Allergies No Known Allergies Problems Problem Type Condition Code Onset Dates Condition Status Assessment Physical exam Z00.00 Active Problem Acute upper respiratory infection, unspecified J06.9 Active Problem Physical exam Z00.00 Active Problem Rash R21 Active Problem Anxiety 300.00 Active Problem Allergic rhinitis, unspecified J30.9 Active Problem Tobacco abuse Z72.0 Active Problem Weight gain R63.5 Active Medications No Known Medications Procedures Procedure Coding System Code Date COMPLETE CBC W/AUTO DIFF WBC CPT-4 45791 Jun 21, 2015 LIPID PANEL CPT-4 65038 Jun 21, 2015 ASSAY THYROID STIM HORMONE CPT-4 45590 Jun 21, 2015 VENIPUNCT, ROUTINE* CPT-4 00308 Jun 21, 2015 COMPREHEN METABOLIC PANEL CPT-4 78817 Jun 21, 2015 Results Name Result Date Reference Range Unit Abnormality Flag ROUTINE VENIPUNCTURE Summary Purpose eClinicalWorks Submission
--- OUTSIDE RECORDS SUMMARY | 2019-03-11 09:20 | XMS REPORT ---
Author Author ADEEL OLIVEIRA Organization [employer]ClinicalWorks Address Unknown Phone Unavailable Care Team Providers Care Catastrophe Claims Supervisor Name Role Phone ADEEL OLIVEIRA CP Unavailable Allergies No Known Allergies Problems [...] Start Date End Date Status Dosage Xanax [facility] [address]-98 2 MG Orally. Must attend appt 10/04/2015 for further refills 4 times a day PRN anxiety August 25, 2014 1 tablet Results No Known Results Summary Purpose eClinicalWorks Submission
--- OUTSIDE RECORDS SUMMARY | 2019-03-11 09:21 | XMS REPORT ---
Author Author LARISSA KIRK Organization [facility] Address Unknown Care Team Providers Care Supervisor Wall Mirror Department Name Role Phone REAGNALARISSA Unavailable PROBLEMS Type Condition ICD9-CM Code QOY13-YB Code Onset Dates Condition Status SNOMED Code Problem Anxiety 300.00 Active 44301307 Problem Weight gain R63.5 Active 1517320 Problem Tobacco abuse Z72.0 Active 24681447 Problem Allergic rhinitis, unspecified J30.9 Active 36941914 Problem Migraine without aura and without status migrainosus, not intractable G43.009 Active 723599098 Problem Generalized anxiety disorder F41.1 Active 65843734 Problem Rash R21 Active 417945717 Problem Physical exam Z00.00 Active 935737937 Problem Major depressive disorder, recurrent, mild F33.0 Active 06962556 Problem Acute upper respiratory infection, unspecified J06.9 Active 82456031 ALLERGIES Substance Reaction Event Type Date Status Ketorolac Tromethamine hives Drug Allergy Jun, Active Iodine anaphylaxis Drug Allergy Jun, Active Remeron 15 Mg Tablet night terrors Non Drug Allergy Jun, Active SOCIAL HISTORY No smoking Hx information available PLAN OF CARE Activity Details Follow Up 3 Months Reason: VITAL SIGNS Height 65 in 2016-06-11 Weight 201.0 lbs 2016-06-11 Heart Rate 68 bpm 2016-06-11 Respiratory Rate 18 2016-06-11 BMI 33.44 kg/m2 2016-06-11 Blood pressure systolic 123 mmHg 2016-06-11 Blood pressure diastolic 81 mmHg 2016-06-11 MEDICATIONS Medication Instructions Dosage Frequency Start Date End Date Duration Status Loratadine 10 MG Orally Once a day 1 capsule 24h Active Flonase 50 MCG/ACT Nasally Once a day 2 sprays in each nostril 24h Mar, Active Albuterol Sulfate HFA 108 (90 Base) MCG/ACT Inhalation every 4 hrs 2 puffs as needed 4h Active Abilify 10 MG Orally Once a day 1 tablet 24h Nov, 30 days Active DayQuil Multi-Symptom Active Xanax 2 MG Orally as needed 4 times a day 1 tablet 6h Nov, Active Diflucan 150 MG 1 tablet May, 1 dose Active NyQuil Active RESULTS No Results PROCEDURES Procedure Date Ordered Related Diagnosis Body Site Office Visit, Est Pt., Level 3 Jun 11, 2016 IMMUNIZATIONS No Known Immunizations
--- OUTSIDE RECORDS SUMMARY | 2019-03-11 09:21 | XMS REPORT ---
Author Author HUEY CARRINGTON eClinicalWorks Address Unknown Phone Unavailable Care Team Providers Care Wetlands Conservation Laborer Name Role Phone HUEY CARRINGTON CP Unavailable Allergies, Adverse Reactions, Alerts Substance Reaction Event Type Ketorolac Tromethamine hives Drug Allergy Iodine anaphylaxis Drug Allergy Remeron 15 Mg Tablet night terrors Non Drug Allergy Problems Problem Type Condition Code Onset Dates Condition Status Assessment Physical exam Z00.00 Active Assessment Rash R21 Active Assessment Anxiety 300.00 Active Assessment Weight gain R63.5 Active Assessment Tobacco abuse Z72.0 Active Problem Acute upper respiratory infection, unspecified J06.9 Active Problem Physical exam Z00.00 Active Problem Rash R21 Active Problem Anxiety 300.00 Active Problem Allergic rhinitis, unspecified J30.9 Active Problem Tobacco abuse Z72.0 Active Problem Weight gain R63.5 Active Medications Medication Code System Code Instructions Start Date End Date Status Dosage Nicorette [facility] [address]-91 2 MG Mouth/Throat 24 time(s) a day Jun 19, 2015 Jul 19, 2015 1 piece as needed Xanax [facility] [address]-43 2 MG Orally 4 times a day PRN anxiety August 25, 2014 1 tablet Claritin [facility] [address]-20 10 MG Orally Once a day Jun 19, 2015 August 18, 2015 1 tablet Triamcinolone & Emollient NDC 0 0.1 % Externally 3 times a day Jun 19, 2015 2015 apply NyQuil NDC 0 not defined Flonase [facility] [address]-07 50 MCG/ACT Nasally Once a day Mar 15, 2015 2 sprays in each nostril Albuterol Sulfate HFA [facility] [address]-14 108 (90 Base) MCG/ACT Inhalation every 4 hrs 2 puffs as needed Mucinex DM [facility] [address]-29 30-600 MG Orally every 12 hrs 1 tablet as needed Procedures Procedure Coding System Code Date Office Visit, Est Pt., Level 3 CPT-4 88154 Jun 19, 2015 Vital Signs Date/Time: Jun 19, 2015 Temperature 98.1 F Weight 203.3 lbs Height 65 in BMI 33.83 Index Blood Pressure Diastolic 78 mmHg Blood Pressure Systolic 118 mmHg Cardiac Monitoring Heart Rate 72 bpm Results No Known Results Summary Purpose eClinicalWorks Submission
--- OUTSIDE RECORDS SUMMARY | 2019-03-11 09:21 | XMS REPORT ---
Author Author ADEEL OLIVEIRA [facility] eClinicalWorks Address Unknown Phone Unavailable Care Team Providers Care Garment Sewer Hand Name Role Phone ADEEL OLIVEIRA CP Unavailable Allergies, Adverse Reactions, Alerts Substance [...] Unspecified pruritic disorder 698.9 Active Assessment Allergic rhinitis, unspecified J30.9 Active Assessment URI (upper respiratory infection) J06.9 Active Problem Screening examination for venereal disease V74.5 Active Problem Pain in soft tissues of limb 729.5 Active Problem Screening for malignant neoplasm of the cervix V76.2 Active Problem Lumbago 724.2 Active Problem Dysmenorrhea 625.3 Active Problem Sprain and strain of unspecified site of back 847.9 Active Medications Medication Code System Code Instructions Start Date End Date Status Dosage Albuterol Sulfate HFA [facility] [address]-53 108 (90 Base) MCG/ACT Inhalation every 4 hrs 2 puffs as needed Tylenol Cold/Flu Severe Day NDC 0 60-1000-30 MG/30ML Orally not defined Flonase [facility] [address]-67 50 MCG/ACT Nasally Once a day Mar 15, 2015 2 sprays in each nostril Xanax [facility] [address]-53 2 MG Orally 4 times a day PRN anxiety August 25, 2014 1 tablet Procedures Procedure Coding System Code Date Office Visit, Est Pt., Level 2 CPT-4 30013 Mar 15, 2015 Vital Signs Date/Time: Mar 15, 2015 Temperature 97.3 F Weight 186.6 lbs Height 65 in BMI 31.05 Index Blood Pressure Diastolic 72 mmHg Blood Pressure Systolic 110 mmHg Cardiac Monitoring Heart Rate 96 bpm Results No Known Results Summary Purpose eClinicalWorks Submission
--- OUTSIDE RECORDS SUMMARY | 2019-03-11 09:21 | XMS REPORT ---
Author Author HUEY CARRINGTON Organization eClinicalWorks Address Unknown Phone Unavailable Care Team Providers Care Take Out Waitress Name Role Phone HUEY CARRINGTON CP Unavailable [...] Instructions Start Date End Date Status Dosage Triamcinolone & Emollient NDC 0 0.1 % Externally 3 times a day Jun 19, 2015 2015 [place] [address]-45 10 MG Orally Once a day Jun 19, 2015 August 18, 2015 1 tablet Results No Known Results Summary Purpose eClinicalWorks Submission
--- OUTSIDE RECORDS SUMMARY | 2019-03-11 09:21 | XMS REPORT ---
Author Author JORGE ALBERTO DAVID [facility] Address [address] [place] [address] Care Team Providers Care Continuity Editor Name Role Phone JORGE ALBERTO DAVID Unavailable PROBLEMS Type Condition ICD9-CM Code TRM29-AI Code Onset Dates Condition Status SNOMED Code Assessment Abscess L02.91 Apr, Active 605950737 Problem Allergic rhinitis, unspecified J30.9 Active 36481593 Assessment Influenza-like symptoms R68.89 Apr, Active 704412687 Problem Rash R21 Active 635495658 Problem Acute upper respiratory infection, unspecified J06.9 Active 43088833 Problem Weight gain R63.5 Active 5389163 Problem Anxiety 300.00 Active 17167386 Problem Physical exam Z00.00 Active 924941353 Problem Tobacco abuse Z72.0 Active 02333232 ALLERGIES Substance Reaction Event Type Date Status Ketorolac Tromethamine hives Drug Allergy Apr, Active Iodine anaphylaxis Drug Allergy Apr, Active Remeron 15 Mg Tablet night terrors Non Drug Allergy Apr, Active SOCIAL HISTORY No smoking Hx information available PLAN OF CARE VITAL SIGNS Height 65 in 2016-05-07 Weight 194.5 lbs 2016-05-07 Heart Rate 72 bpm 2016-05-07 Respiratory Rate 18 2016-05-07 BMI 32.36 kg/m2 2016-05-07 Blood pressure systolic 106 mmHg 2016-05-07 Blood pressure diastolic 80 mmHg 2016-05-07 MEDICATIONS Medication Instructions Dosage Frequency Start Date End Date Duration Status Flonase 50 MCG/ACT Nasally Once a day 2 sprays in each nostril 24h Mar, Active DayQuil Multi-Symptom Active Abilify 10 MG Orally Once a day 1 tablet 24h Nov, 30 days Active Xanax 2 MG Orally as needed 4 times a day 1 tablet 6h Nov, Active Albuterol Sulfate HFA 108 (90 Base) MCG/ACT Inhalation every 4 hrs 2 puffs as needed 4h Active Loratadine 10 MG Orally Once a day 1 capsule 24h Active RESULTS Name Result Date Reference Range INFLUENZA A & B (IN HOUSE) 2016-05-07 INFLUENZA A negative INFLUENZA B negative Control + Lot # [id number] Exp date 05/30/2017 PROCEDURES Procedure Date Ordered Related Diagnosis Body Site INFLUENZA ASSAY W/OPTIC May 07, 2016 Office Visit, Est Pt., Level 3 May 07, 2016 IMMUNIZATIONS No Known Immunizations
--- OUTSIDE RECORDS SUMMARY | 2019-03-11 09:21 | XMS REPORT ---
Author Author BK SHIN Organization eClinicalWorks Address Unknown Phone Unavailable Care Team Providers Care Assistant Education Director Name Role Phone BK SHIN CP Unavailable Allergies, Adverse Reactions, Alerts Substance Reaction Event Type Ketorolac Tromethamine hives Drug Allergy Iodine anaphylaxis Drug Allergy Remeron 15 Mg Tablet night terrors Non Drug Allergy Problems Problem Type Condition Code Onset Dates Condition Status Assessment Anxiety F41.9 Active Problem Acute upper respiratory infection, unspecified J06.9 Active Problem Physical exam Z00.00 Active Problem Rash R21 Active Problem Anxiety 300.00 Active Problem Allergic rhinitis, unspecified J30.9 Active Problem Tobacco abuse Z72.0 Active Problem Weight gain R63.5 Active Medications Medication Code System Code Instructions Start Date End Date Status Dosage Ibuprofen [facility] [address]-33 200 MG Orally every 6 hrs 1 tablet as needed Xanax [facility] [address]-42 2 MG Orally. Must attend appt 10/04/2015 for further refills 4 times a day PRN anxiety August 25, 2014 1 tablet Flonase [facility] [address]-37 50 MCG/ACT Nasally Once a day Mar 15, 2015 2 sprays in each nostril Albuterol Sulfate HFA [facility] [address]-40 108 (90 Base) MCG/ACT Inhalation every 4 hrs 2 puffs as needed Procedures Procedure Coding System Code Date No Charge CPT-4 81707 October 03, 2015 Office Visit, Est Pt., Level 4 CPT-4 65871 October 03, 2015 DRUG SCREEN NON TLC DEVICES CPT-4 97915 October 03, 2015 Vital Signs Date/Time: October 03, 2015 Temperature 98.6 F Weight 202.8 lbs Height 65 in BMI 33.74 Index Blood Pressure Diastolic 68 mmHg Blood Pressure Systolic 110 mmHg Cardiac Monitoring Heart Rate 84 bpm Results No Known Results Summary Purpose eClinicalWorks Submission
--- OUTSIDE RECORDS SUMMARY | 2019-03-11 09:21 | XMS REPORT ---
Author Author HUEY CARRINGTON eClinicalWorks Address Unknown Phone Unavailable Care Team Providers Care Business Services Tech Name Role Phone HUEY CARRINGTON CP Unavailable [...] Instructions Start Date End Date [place] D[place] [address]-75 150 MG Orally Once a day Jun 20, [address] [place] [address]-03 150 MG Orally Once a day Jun 20, 2015 1 tablet Results No Known Results Summary Purpose eClinicalWorks Submission
--- OUTSIDE RECORDS SUMMARY | 2019-03-11 09:22 | XMS REPORT | Continuity of Care Document ---
Author Author [facility] Organization [facility] Address Unknown Phone Unavailable Care Team Providers Care Senior Report Developer Name Role Phone [facility] OF Insurance Providers Payer Name Policy Number Subscriber Name Relationship Self Pay Colin Montoya Self / Same As Patient Advance Directives Directive Response Recorded Date Advance Directives N 04/04/13 6:59am Health Care Power of Mail Opener N 04/04/13 6:59am Organ Donor Y 04/04/13 6:59am Problems No Known Problems or Medical conditions. Family History History Response Recorded Date/Time Hx Family Breast Cancer Y AUNT 06/25/10 1:16pm Hx Family Colorectal Cancer Y AUNT 06/25/10 1:16pm Hx Family Cardiac Disorders Y 06/25/10 1:16pm Hx Family Stroke Y MOM,AUNT,GRANDMA 06/25/10 1:16pm Hx Family Hypertension Y MOM 06/25/10 1:16pm Hx Family Myocardial Infarction Y GRANDMA 06/25/10 1:16pm Social History History Response Recorded Date/Time Alcohol Use Occasionally Uses 04/04/13 6:59am Recreational Drug Use N 04/04/13 6:59am Sexually Transmitted Disease N 04/04/13 6:59am Allergies, Adverse Reactions, Alerts Allergen Type Severity Reaction Last Updated iodine Allergy Unknown 10/23/06 ketorolac Allergy Unknown 07/17/08 CATS Allergy Mild 05/15/09 SEA FOOD Allergy Mild 12/25/08 Medications Medication Dose Units Route Sig Qty Days Promethazine HCl/Codeine (Phenergan W/Codeine Syrup) 5 Ml PO Q6H PRN 120 Prednisone 40 Mg PO DAILY 5 Alprazolam (Xanax) 1 Tab PO TID Albuterol (Proair Hfa) 8.5 Gm IH Q4H 1 Tobramycin Sulfate (Tobrex Ophth Oint) 0 OU TID 1 Amoxicillin/Clavulanate Potassium (Augmentin 875-125 Tablet) 1 Tab PO BID 20 Amoxicillin 2 Each PO TID 10 Ibuprofen (Motrin) 800 Mg PO Q8HR PRN 30 Naproxen (Naprosyn) 1 Each PO BID - TID PRN 60 Ondansetron HCl (Zofran) 1 Tab PO Q4H 10 Doxycycline Hyclate 1 Each PO BID 10 Prednisone 40 Mg PO DAILY 5 Diazepam (Diazepam 5 Mg) 1 Each PO BID PRN Hydrocodone Bit/Acetaminophen (Hydrocodon-Acetaminophen 5-325) 1 - 2 Each PO Q6H PRN 20 Alprazolam (Xanax) 1 Tab PO QID Albuterol (Proventil Inh) 2 Puff IH PRN Immunizations Name Given Type RIG 01/31/13 A rabies, intramuscular injection 01/31/13 A Tdap 01/31/13 A Response Recorded Date/Time Status not known Unknown Results No Known Relevant Diagnostic Tests, Laboratory Data and/or Discharge Summary. Procedures Procedure Code Date REMOV TUBE & ECTOP PREG 66.62 10/23/06 OT UNILAT OOPHORECTOMY 65.39 10/23/06 OT LYSIS-ADHES OVA,FALLOP TUBE 65.89 10/23/06 TREAT ECTOPIC 91628 07/17/08 LAPAROSCOPY EXCISE LESIONS 81642 07/17/08 EXC BACK LES SC 3 CM/> [id number] 08/07/09 Encounters Encounter Location Date/Time Departed Emergency Room [facility] 04/04/13 6:54am Discharged Inpatient [facility] 06/25/10 1:10pm
--- OUTSIDE RECORDS SUMMARY | 2019-03-11 09:22 | XMS REPORT | Continuity of Care Document ---
Author Author [facility] Organization [facility] Address Unknown Phone Unavailable Care Team Providers Care Material Yard Clerk Name Role Phone [facility] OF Insurance Providers Payer Name Policy Number Subscriber Name Relationship Self Pay Colin Montoya Self / Same As Patient Advance Directives Directive Response Recorded Date Advance Directives N 01/03/13 6:53am Health Care Power of Gasoline Finisher N 01/03/13 6:53am Organ Donor Y 01/03/13 6:53am Problems No Known Problems or Medical conditions. [...] History History Response Recorded Date/Time Alcohol Use Denies Use 01/03/13 6:53am Recreational Drug Use N 01/03/13 6:53am Sexually Transmitted Disease N 01/03/13 6:53am HIV/AIDS N 01/03/13 6:53am Allergies, Adverse Reactions, Alerts Allergen Type Severity Reaction Last Updated Iodine Allergy Unknown 10/23/06 ketorolac Allergy Unknown 07/17/08 CATS Allergy Mild 05/15/09 SEA FOOD Allergy Mild 12/25/08 Medications Medication Dose Units Route Sig Qty Days Amoxicillin 2 Each PO TID 10 Alprazolam (Xanax) 1 Tab PO TID Albuterol (Proair Hfa) 8.5 Gm IH Q4H 1 Ibuprofen (Motrin) 800 Mg PO Q8HR PRN [...] Albuterol (Proventil Inh) 2 Puff IH PRN Hydrocodone Bit/Acetaminophen (Hydrocodon-Acetaminophen 5-325) 1 - 2 Each PO Q 4 HOURS PRN PAIN 14 Response Recorded Date/Time Status not known Unknown Results No Known Relevant Diagnostic Tests, Laboratory Data and/or Discharge Summary. Procedures Procedure Code Date REMOV TUBE & ECTOP PREG 66.62 10/23/06 OT UNILAT OOPHORECTOMY 65.39 10/23/06 OT LYSIS-ADHES OVA,FALLOP TUBE 65.89 10/23/06 TREAT ECTOPIC 57419 07/17/08 LAPAROSCOPY EXCISE LESIONS 99822 07/17/08 EXC BACK LES SC 3 CM/> [id number] 08/07/09 Encounters Encounter Location Date/Time Departed Emergency Room [facility] 01/03/13 6:50am Discharged Inpatient [facility] 06/25/10 1:10pm
--- OUTSIDE RECORDS SUMMARY | 2019-03-11 09:22 | XMS REPORT | Continuity of Care Document ---
Author Author [facility] Organization [facility] Address Unknown Phone Unavailable Care Team Providers Care Door Liner Name Role Phone [facility] OF Insurance Providers Payer Name Policy Number Subscriber Name Relationship Self Pay Colin Montoya Self / Same As Patient Advance Directives Directive Response Recorded Date Advance Directives N 02/28/13 6:53am Health Care Power of Aligner Barrel And Receiver N 01/31/13 5:56pm Organ Donor Y 01/31/13 5:56pm Problems No Known Problems or Medical conditions. [...] Response Recorded Date/Time Alcohol Use Denies Use 02/28/13 6:53am Recreational Drug Use N 02/28/13 6:53am Allergies, Adverse Reactions, Alerts Allergen Type Severity Reaction Last Updated iodine Allergy Unknown 10/23/06 ketorolac Allergy Unknown 07/17/08 CATS Allergy Mild 05/15/09 SEA FOOD Allergy Mild 12/25/08 Medications Medication Dose Units Route Sig Qty Days Tobramycin Sulfate (Tobrex Ophth Oint) 0 OU TID 1 Amoxicillin/Clavulanate Potassium (Augmentin 875-125 Tablet) 1 Tab PO BID 20 Alprazolam (Xanax) 1 Tab PO TID Albuterol (Proair Hfa) 8.5 Gm IH Q4H 1 Amoxicillin 2 Each PO TID 10 Ibuprofen [...] LYSIS-ADHES OVA,FALLOP TUBE 65.89 10/23/06 TREAT ECTOPIC 13377 07/17/08 LAPAROSCOPY EXCISE LESIONS 96654 07/17/08 EXC BACK LES SC 3 CM/> [id number] 08/07/09 Encounters Encounter Location Date/Time Departed Emergency Room [facility] 02/28/13 6:39am Discharged Inpatient [facility] 06/25/10 1:10pm
--- OUTSIDE RECORDS SUMMARY | 2019-03-11 09:22 | XMS REPORT | Continuity of Care Document ---
Author Author [facility] Organization [facility] Address Unknown Phone Unavailable Care Team Providers Care Box Car Checker Name Role Phone [facility] OF Insurance Providers Payer Name Policy Number Subscriber Name Relationship Self Pay Colin Montoya Self / Same As Patient Advance Directives Directive Response Recorded Date Advance Directives N 01/31/13 5:56pm Health Care Power of Sample Patternmaker N 01/31/13 5:56pm Organ Donor Y 01/31/13 [...] Response Recorded Date/Time Alcohol Use Occasionally Uses 01/31/13 7:01pm Recreational Drug Use N 01/31/13 5:56pm Allergies, Adverse Reactions, Alerts Allergen Type Severity Reaction Last Updated iodine Allergy Unknown 10/23/06 ketorolac Allergy Unknown 07/17/08 CATS Allergy Mild 05/15/09 SEA FOOD Allergy Mild 12/25/08 Medications Medication Dose Units Route Sig Qty Days Amoxicillin/Clavulanate Potassium (Augmentin 875-125 Tablet) 1 Tab [...] PO Q 4 HOURS PRN PAIN 14 Immunizations Name Given Type RIG 01/31/13 A rabies, intramuscular injection 01/31/13 A Tdap 01/31/13 A Response Recorded Date/Time Status not known Unknown Results No Known Relevant Diagnostic Tests, Laboratory Data and/or Discharge Summary. Procedures Procedure Code Date REMOV TUBE & ECTOP PREG 66.62 10/23/06 OT UNILAT OOPHORECTOMY 65.39 10/23/06 OT LYSIS-ADHES OVA,FALLOP TUBE 65.89 10/23/06 TREAT ECTOPIC 17293 07/17/08 LAPAROSCOPY EXCISE LESIONS 39176 07/17/08 EXC BACK LES SC 3 CM/> [id number] 08/07/09 Encounters Encounter Location Date/Time Departed Emergency Room [facility] 01/31/13 5:45pm Discharged Inpatient [facility] 06/25/10 1:10pm
--- OUTSIDE RECORDS SUMMARY | 2019-03-11 09:23 | XMS REPORT | Continuity of Care Document ---
Author Author [facility] Organization [facility] Address Unknown Phone Unavailable Care Team Providers Care Helper Electrical Name Role Phone [facility] OF Insurance Providers Payer Name Policy Number Subscriber Name Relationship Self Pay Colin Montoya Self / Same As Patient Advance Directives Directive Response Recorded Date Advance Directives N 11/18/12 10:34am Health Care Power of Drainage Engineer N 11/18/12 10:34am Organ Donor Y 11/18/12 10:34am Problems No Known Problems or Medical conditions. Family History History Response Recorded Date/Time Hx Family Breast Cancer Y AUNT 06/25/10 1:16pm Hx Family Colorectal Cancer Y AUNT 06/25/10 1:16pm Social History History Response Recorded Date/Time Alcohol Use Denies Use 11/18/12 10:34am Recreational Drug Use N 11/18/12 10:34am Allergies, Adverse Reactions, Alerts Allergen Type Severity Reaction Last Updated Iodine Allergy Unknown 10/23/06 ketorolac Allergy Unknown 07/17/08 CATS Allergy Mild 05/15/09 SEA FOOD Allergy Mild 12/25/08 Medications Medication Dose Units Route Sig Qty Days Naproxen (Naprosyn) 1 Each PO BID - TID PRN 60 Alprazolam (Xanax) 1 Tab PO TID Albuterol (Proair Hfa) 8.5 Gm IH Q4H 1 Ibuprofen (Motrin) 800 Mg PO Q8HR PRN 30 Ondansetron HCl (Zofran) 1 Tab PO Q4H [...] LYSIS-ADHES OVA,FALLOP TUBE 65.89 10/23/06 TREAT ECTOPIC 15180 07/17/08 LAPAROSCOPY EXCISE LESIONS 56120 07/17/08 EXC BACK LES SC 3 CM/> [id number] 08/07/09 Encounters Encounter Location Date/Time Departed Emergency Room [facility] 11/18/12 10:30am Discharged Inpatient [facility] 06/25/10 1:10pm
--- OUTSIDE RECORDS SUMMARY | 2019-03-11 09:25 | XMS REPORT | Continuity of Care Document ---
Author Organization Unknown Address Unknown Phone Unavailable Allergies Active Description Code Type Severity Reaction Onset Reported/Identified Relationship to Patient Clinical Status Yes iodine [id number] Drug Allergy Unknown N/A 10/23/2006 Yes ketorolac [id number] Drug Allergy Unknown N/A 2008 Yes iodine Drug Allergy N/A N/A 09/07/2008 Yes iodine Drug Allergy 09/07/2008 Yes SEA FOOD SEA FOOD Mild N/A 12/25/2008 Yes CATS CATS Mild N/A 05/15/2009 Yes Toradol Drug Allergy N/A N/A 05/15/2011 Yes Toradol Drug Allergy 05/15/2011 Yes Remeron 15 mg tablet Drug Allergy N/A N/A 03/10/2014 Medications There is no data. Problems Date Dx Coded Attending Type Code Diagnosis Diagnosed By 12/13/2007 BK LANGSTON APRN 626.0 ABSENCE OF MENSTRUATION 12/13/2007 VERENA TORRES APRN 626.0 ABSENCE OF MENSTRUATION 12/13/2007 626.0 ABSENCE OF MENSTRUATION 12/13/2007 626.0 ABSENCE OF MENSTRUATION 12/13/2007 MELISSA PANDYA VERENA CONY 626.0 ABSENCE OF MENSTRUATION 12/13/2007 SERGIO HAMPTON, ADRIANA N 626.0 ABSENCE OF MENSTRUATION 12/13/2007 JORGE ALBERTO DAVID APRN 626.0 ABSENCE OF MENSTRUATION 12/13/2007 MELISSA PANDYA VERENA CONY 626.0 ABSENCE OF MENSTRUATION 12/13/2007 LLOYD STOLL DO 626.0 ABSENCE OF MENSTRUATION 12/13/2007 JORGE ALBERTO DAVID APRN 626.0 ABSENCE OF MENSTRUATION 12/13/2007 VERENA TORRES APRN 626.0 ABSENCE OF MENSTRUATION 12/13/2007 DEEJAY ZIMMERMAN APRN 626.0 ABSENCE OF MENSTRUATION 12/13/2007 FRANKIE MAGAZINE GRINDER LOADER, JORGE ALBERTO S 626.0 ABSENCE OF MENSTRUATION 12/13/2007 CHARIS MAGAZINE GRINDER LOADER, SAMPSON 626.0 ABSENCE OF MENSTRUATION 12/13/2007 CHARIS MAGAZINE GRINDER LOADER, SAMPSON 626.0 ABSENCE OF MENSTRUATION 12/13/2007 RICHARD CALDERÓN APRN 626.0 ABSENCE OF MENSTRUATION 12/13/2007 CHARIS MAGAZINE GRINDER LOADER, SAMPSON 626.0 ABSENCE OF MENSTRUATION 12/22/2007 BK LANGSTON APRN 296.50 BIPOLAR I DISORDER MOST RECENT EPISODE (OR CURRENT) DEPRESSED UNSPECIFIED 12/22/2007 BK LANGSTON APRN 300.01 AN PANIC DIS W/O AGORA 12/22/2007 MELISSA PANDYA VERENA CONY 296.50 BIPOLAR I DISORDER MOST RECENT EPISODE (OR CURRENT) DEPRESSED UNSPECIFIED 12/22/2007 VERENA TORRES APRN 300.01 AN PANIC DIS W/O AGORA 12/22/2007 296.50 BIPOLAR I DISORDER MOST RECENT EPISODE (OR CURRENT) DEPRESSED UNSPECIFIED 12/22/2007 300.01 AN PANIC DIS W/O AGORA 12/22/2007 296.50 BIPOLAR I DISORDER MOST RECENT EPISODE (OR CURRENT) DEPRESSED UNSPECIFIED 12/22/2007 300.01 AN PANIC DIS W/O AGORA 12/22/2007 MELISSA PANDYA VERENA CONY 296.50 BIPOLAR I DISORDER MOST RECENT EPISODE (OR CURRENT) DEPRESSED UNSPECIFIED 12/22/2007 VERENA TORRES APRN 300.01 AN PANIC DIS W/O AGORA 12/22/2007 ADRIANA HILL MD 296.50 BIPOLAR I DISORDER MOST RECENT EPISODE (OR CURRENT) DEPRESSED UNSPECIFIED 12/22/2007 ADRIANA HILL MD 300.01 AN PANIC DIS W/O AGORA 12/22/2007 JORGE ALBERTO DAVID APRN S 296.50 BIPOLAR I DISORDER MOST RECENT EPISODE (OR CURRENT) DEPRESSED UNSPECIFIED 12/22/2007 JORGE ALBERTO DAVID APRN S 300.01 AN PANIC DIS W/O AGORA 12/22/2007 MELISSA PNADYA VERENA CONY 296.50 BIPOLAR I DISORDER MOST RECENT EPISODE (OR CURRENT) DEPRESSED UNSPECIFIED 12/22/2007 VERENA TORRES APRN 300.01 AN PANIC DIS W/O AGORA 12/22/2007 STOLL DO, LLOYD K 296.50 BIPOLAR I DISORDER MOST RECENT EPISODE (OR CURRENT) DEPRESSED UNSPECIFIED 12/22/2007 LLOYD STOLL DO K 300.01 AN PANIC DIS W/O AGORA 12/22/2007 ARABELLA DAVID APRNA S 296.50 BIPOLAR I DISORDER MOST RECENT EPISODE (OR CURRENT) DEPRESSED UNSPECIFIED 12/22/2007 ARABELLA DAVID APRNA S 300.01 AN PANIC DIS W/O AGORA 12/22/2007 TORRESRICH PANDYA VERENA DONNELLY 296.50 BIPOLAR I DISORDER MOST RECENT EPISODE (OR CURRENT) DEPRESSED UNSPECIFIED 12/22/2007 TORRES MUMTAZVERENA 300.01 AN PANIC DIS W/O AGORA 12/22/2007 ELSIE PANDYA DEEJAY R 296.50 BIPOLAR I DISORDER MOST RECENT EPISODE (OR CURRENT) DEPRESSED UNSPECIFIED 12/22/2007 NOHEMI ZIMMERMAN APRNINA R 300.01 AN PANIC DIS W/O AGORA 12/22/2007 ARABELLA DAVID APRNA S 296.50 BIPOLAR I DISORDER MOST RECENT EPISODE (OR CURRENT) DEPRESSED UNSPECIFIED 12/22/2007 ARABELLA DAVID APRNA S 300.01 AN PANIC DIS W/O AGORA 12/22/2007 CHARIS MAGAZINE GRINDER LOADER, SAMPSON 296.50 BIPOLAR I DISORDER MOST RECENT EPISODE (OR CURRENT) DEPRESSED UNSPECIFIED 12/22/2007 CHARIS MAGAZINE GRINDER LOADER, SAMPSON 300.01 AN PANIC DIS W/O AGORA 12/22/2007 CHARIS MAGAZINE GRINDER LOADER, SAMPSON 296.50 BIPOLAR I DISORDER MOST RECENT EPISODE (OR CURRENT) DEPRESSED UNSPECIFIED 12/22/2007 CHARIS MAGAZINE GRINDER LOADER, SAMPSON 300.01 AN PANIC DIS W/O AGORA 12/22/2007 MADL MAGAZINE GRINDER LOADER, RICHARD L 296.50 BIPOLAR I DISORDER MOST RECENT EPISODE (OR CURRENT) DEPRESSED UNSPECIFIED 12/22/2007 MADL MAGAZINE GRINDER LOADER, RICHARD L 300.01 AN PANIC DIS W/O AGORA 12/22/2007 CHARIS MAGAZINE GRINDER LOADER, SAMPSON 296.50 BIPOLAR I DISORDER MOST RECENT EPISODE (OR CURRENT) DEPRESSED UNSPECIFIED 12/22/2007 CHARIS MAGAZINE GRINDER LOADER, SAMPSON 300.01 AN PANIC DIS W/O AGORA 02/22/2008 BK LANGSTON APRN 296.60 BIPOLAR I DISORDER MOST RECENT EPISODE (OR CURRENT) MIXED UNSPECIFIED 02/22/2008 BK LANGSTON APRN V58.69 LONG-TERM (CURRENT) USE OF OTHER MEDICATIONS 02/22/2008 MELISSA PANDYAVERENA 296.60 BIPOLAR I DISORDER MOST RECENT EPISODE (OR CURRENT) MIXED UNSPECIFIED 02/22/2008 TORRES APRNVERENA V58.69 LONG-TERM (CURRENT) USE OF OTHER MEDICATIONS 02/22/2008 296.60 BIPOLAR I DISORDER MOST RECENT EPISODE (OR CURRENT) MIXED UNSPECIFIED 02/22/2008 V58.69 LONG-TERM (CURRENT) USE OF OTHER MEDICATIONS 02/22/2008 296.60 BIPOLAR I DISORDER MOST RECENT EPISODE (OR CURRENT) MIXED UNSPECIFIED 02/22/2008 V58.69 LONG-TERM (CURRENT) USE OF OTHER MEDICATIONS 02/22/2008 MELISSA PANDYAVERENA 296.60 BIPOLAR I DISORDER MOST RECENT EPISODE (OR CURRENT) MIXED UNSPECIFIED 02/22/2008 MELISSA PANDYAVERENA V58.69 LONG-TERM (CURRENT) USE OF OTHER MEDICATIONS 02/22/2008 ADRIANA HILL MD 296.60 BIPOLAR I DISORDER MOST RECENT EPISODE (OR CURRENT) MIXED UNSPECIFIED 02/22/2008 ADRIANA HILL MD V58.69 LONG-TERM (CURRENT) USE OF OTHER MEDICATIONS 02/22/2008 JORGE ALBERTO DAVID APRN S 296.60 BIPOLAR I DISORDER MOST RECENT EPISODE (OR CURRENT) MIXED UNSPECIFIED 02/22/2008 JORGE ALBERTO DAVID APRN S V58.69 LONG-TERM (CURRENT) USE OF OTHER MEDICATIONS 02/22/2008 MELISSA PANDYA VERENA DONNELLY 296.60 BIPOLAR I DISORDER MOST RECENT EPISODE (OR CURRENT) MIXED UNSPECIFIED 02/22/2008 MELISSA PANDYA VERENA DONNELLY V58.69 LONG-TERM (CURRENT) USE OF OTHER MEDICATIONS 02/22/2008 STOLL DO LLOYD K 296.60 BIPOLAR I DISORDER MOST RECENT EPISODE (OR CURRENT) MIXED UNSPECIFIED 02/22/2008 STOLL DO LLOYD K V58.69 LONG-TERM (CURRENT) USE OF OTHER MEDICATIONS 02/22/2008 ARABELLA DAVID APRNA S 296.60 BIPOLAR I DISORDER MOST RECENT EPISODE (OR CURRENT) MIXED UNSPECIFIED 02/22/2008 HOANG DAVID APRNNDA S V58.69 LONG-TERM (CURRENT) USE OF OTHER MEDICATIONS 02/22/2008 MELISSA PANDYA VERENA CONY 296.60 BIPOLAR I DISORDER MOST RECENT EPISODE (OR CURRENT) MIXED UNSPECIFIED 02/22/2008 MELISSA PANDYA VERENA DONNELLY V58.69 LONG-TERM (CURRENT) USE OF OTHER MEDICATIONS 02/22/2008 ELSIE MAGAZINE GRINDER LOADER, DEEJAY R 296.60 BIPOLAR I DISORDER MOST RECENT EPISODE (OR CURRENT) MIXED UNSPECIFIED 02/22/2008 ELSIE MAGAZINE GRINDER LOADER, DEEJAY R V58.69 LONG-TERM (CURRENT) USE OF OTHER MEDICATIONS 02/22/2008 FRANKIE MAGAZINE GRINDER LOADER, JORGE ALBERTO S 296.60 BIPOLAR I DISORDER MOST RECENT EPISODE (OR CURRENT) MIXED UNSPECIFIED 02/22/2008 FRANKIE MAGAZINE GRINDER LOADER, JORGE ALBERTO S V58.69 LONG-TERM (CURRENT) USE OF OTHER MEDICATIONS 02/22/2008 CHARIS MAGAZINE GRINDER LOADER, SAMPSON 296.60 BIPOLAR I DISORDER MOST RECENT EPISODE (OR CURRENT) MIXED UNSPECIFIED 02/22/2008 CHARIS MAGAZINE GRINDER LOADER, SAMPSON V58.69 LONG-TERM (CURRENT) USE OF OTHER MEDICATIONS 02/22/2008 CHARIS MAGAZINE GRINDER LOADER, SAMPSON 296.60 BIPOLAR I DISORDER MOST RECENT EPISODE (OR CURRENT) MIXED UNSPECIFIED 02/22/2008 CHARIS MAGAZINE GRINDER LOADER, SAMPSON V58.69 LONG-TERM (CURRENT) USE OF OTHER MEDICATIONS 02/22/2008 MADL MAGAZINE GRINDER LOADER, RICHARD L 296.60 BIPOLAR I DISORDER MOST RECENT EPISODE (OR CURRENT) MIXED UNSPECIFIED 02/22/2008 MADL MAGAZINE GRINDER LOADER, RICHARD L V58.69 LONG-TERM (CURRENT) USE OF OTHER MEDICATIONS 02/22/2008 CHARIS MAGAZINE GRINDER LOADER, SAMPSON 296.60 BIPOLAR I DISORDER MOST RECENT EPISODE (OR CURRENT) MIXED UNSPECIFIED 02/22/2008 CHARIS MAGAZINE GRINDER LOADER, SAMPSON V58.69 LONG-TERM (CURRENT) USE OF OTHER MEDICATIONS 03/06/2008 BK LANGSTON APRN 462 PHARYNGITIS ACUTE 03/06/2008 VERENA TORRES APRN 462 PHARYNGITIS ACUTE 03/06/2008 462 PHARYNGITIS ACUTE 03/06/2008 462 PHARYNGITIS ACUTE 03/06/2008 VERENA TORRES APRN 462 PHARYNGITIS ACUTE 03/06/2008 SERGIO MD, ADRIANA N 462 PHARYNGITIS ACUTE 03/06/2008 FRANKIE MAGAZINE GRINDER LOADER, JORGE ALBERTO S 462 PHARYNGITIS ACUTE 03/06/2008 MELISSA MAGAZINE GRINDER LOADER, VERENA DONNELLY 462 PHARYNGITIS ACUTE 03/06/2008 LLOYD STOLL DO K 462 PHARYNGITIS ACUTE 03/06/2008 FRANKIE MAGAZINE GRINDER LOADER, JORGE ALBERTO S 462 PHARYNGITIS ACUTE 03/06/2008 MELISSA MAGAZINE GRINDER LOADER VERENA DONNELLY 462 PHARYNGITIS ACUTE 03/06/2008 ELSIE MAGAZINE GRINDER LOADER, DEEJAY R 462 PHARYNGITIS ACUTE 03/06/2008 FRANKIE MAGAZINE GRINDER LOADER, JORGE ALBERTO S 462 PHARYNGITIS ACUTE 03/06/2008 CHARIS MAGAZINE GRINDER LOADER, SAMPSON 462 PHARYNGITIS ACUTE 03/06/2008 CHARIS MAGAZINE GRINDER LOADER, SAMPSON 462 PHARYNGITIS ACUTE 03/06/2008 MADL MAGAZINE GRINDER LOADER, RICHARD L 462 PHARYNGITIS ACUTE 03/06/2008 CHARIS MAGAZINE GRINDER LOADER, SAMPSON 462 PHARYNGITIS ACUTE 09/07/2008 IVIS MAGAZINE GRINDER LOADER, BK Sullivan 251.2 HYPOGLYCEMIA UNSPECIFIED 09/07/2008 MELISSA MAGAZINE GRINDER LOADER, VERENA DONNELLY 251.2 HYPOGLYCEMIA UNSPECIFIED 09/07/2008 251.2 HYPOGLYCEMIA UNSPECIFIED 09/07/2008 251.2 HYPOGLYCEMIA UNSPECIFIED 09/07/2008 MELISSA PANDYA VERENA DONNELLY 251.2 HYPOGLYCEMIA UNSPECIFIED 09/07/2008 ADRIANA HILL MD 251.2 HYPOGLYCEMIA UNSPECIFIED 09/07/2008 FRANKIE PANDYA, JORGE ALBERTO S 251.2 HYPOGLYCEMIA UNSPECIFIED 09/07/2008 MELISSA PANDYA VERENA DONNELLY 251.2 HYPOGLYCEMIA UNSPECIFIED 09/07/2008 LLOYD STOLL DO 251.2 HYPOGLYCEMIA UNSPECIFIED 09/07/2008 FRANKIE MAGAZINE GRINDER LOADER, JORGE ALBERTO S 251.2 HYPOGLYCEMIA UNSPECIFIED 09/07/2008 TORRES APRN, VERENA DONNELLY 251.2 HYPOGLYCEMIA UNSPECIFIED 09/07/2008 ELSIE MAGAZINE GRINDER LOADER, DEEJAY R 251.2 HYPOGLYCEMIA UNSPECIFIED 09/07/2008 FRANKIE MAGAZINE GRINDER LOADER, JORGE ALBERTO S 251.2 HYPOGLYCEMIA UNSPECIFIED 09/07/2008 CHARIS MAGAZINE GRINDER LOADER, SAMPSON 251.2 HYPOGLYCEMIA UNSPECIFIED 09/07/2008 CHARIS MAGAZINE GRINDER LOADER, SAMPSON 251.2 HYPOGLYCEMIA UNSPECIFIED 09/07/2008 KAITLYNN MAGAZINE GRINDER LOADERRICHARD Noe 251.2 HYPOGLYCEMIA UNSPECIFIED 09/07/2008 CHARIS MAGAZINE GRINDER LOADER, SAMPSON 251.2 HYPOGLYCEMIA UNSPECIFIED 09/14/2008 BK LANGSTON APRN 296.40 MO BIPOLAR MANIC UNSPECIFIED 09/14/2008 MELISSA PANDYA, VERENA DONNELLY 296.40 MO BIPOLAR MANIC UNSPECIFIED 09/14/2008 296.40 MO BIPOLAR MANIC UNSPECIFIED 09/14/2008 296.40 MO BIPOLAR MANIC UNSPECIFIED 09/14/2008 MELISSA PANDYA, VERENA DONNELLY 296.40 MO BIPOLAR MANIC UNSPECIFIED 09/14/2008 SERGIO HAMPTON, ADRIANA Noe 296.40 MO BIPOLAR MANIC UNSPECIFIED 09/14/2008 FRANKIE PANDYA, JORGE ALBERTO S 296.40 MO BIPOLAR MANIC UNSPECIFIED 09/14/2008 TORRES APRN, VERENA DONNELLY 296.40 MO BIPOLAR MANIC UNSPECIFIED 09/14/2008 LLOYD STOLL DO 296.40 MO BIPOLAR MANIC UNSPECIFIED 09/14/2008 FRANKIE MAGAZINE GRINDER LOADER, JORGE ALBERTO S 296.40 MO BIPOLAR MANIC UNSPECIFIED 09/14/2008 TORRES MAGAZINE GRINDER LOADER, VERENA DONNELLY 296.40 MO BIPOLAR MANIC UNSPECIFIED 09/14/2008 DEEJAY ZIMMERMAN APRN R 296.40 MO BIPOLAR MANIC UNSPECIFIED 09/14/2008 FRANKIE MAGAZINE GRINDER LOADER, JORGE ALBERTO S 296.40 MO BIPOLAR MANIC UNSPECIFIED 09/14/2008 CHARIS MAGAZINE GRINDER LOADER, SAMPSON 296.40 MO BIPOLAR MANIC UNSPECIFIED 09/14/2008 CHARIS MAGAZINE GRINDER LOADER, SAMPSON 296.40 MO BIPOLAR MANIC UNSPECIFIED 09/14/2008 RAVINDERL MAGAZINE GRINDER LOADERRICHARD Noe L 296.40 MO BIPOLAR MANIC UNSPECIFIED 09/14/2008 CHARIS MAGAZINE GRINDER LOADER, SMAPSON 296.40 MO BIPOLAR MANIC UNSPECIFIED 05/16/2009 BK LANGSTON APRN 848.9 SPRAIN/STRAIN OTHER UNSPEC SITE 05/16/2009 VERENA TORRES APRN 848.9 SPRAIN/STRAIN OTHER UNSPEC SITE 05/16/2009 848.9 SPRAIN/STRAIN OTHER UNSPEC SITE 05/16/2009 848.9 SPRAIN/STRAIN OTHER UNSPEC SITE 05/16/2009 TORRES MAGAZINE GRINDER LOADER, VERENA CONY 848.9 SPRAIN/STRAIN OTHER UNSPEC SITE 05/16/2009 SERGIO HAMPTON, ADRIANA N 848.9 SPRAIN/STRAIN OTHER UNSPEC SITE 05/16/2009 FRANKIE MAGAZINE GRINDER LOADERARABELLA NoeA S 848.9 SPRAIN/STRAIN OTHER UNSPEC SITE 05/16/2009 MELISSA PANDYA VERENA DONNELLY 848.9 SPRAIN/STRAIN OTHER UNSPEC SITE 05/16/2009 LLOYD STOLL DO K 848.9 SPRAIN/STRAIN OTHER UNSPEC SITE 05/16/2009 FRANKIE MAGAZINE GRINDER LOADER JORGE ALBERTO S 848.9 SPRAIN/STRAIN OTHER UNSPEC SITE 05/16/2009 TORRES MAGAZINE GRINDER LOADER, VERENA DONNELLY 848.9 SPRAIN/STRAIN OTHER UNSPEC SITE 05/16/2009 ELSIE MAGAZINE GRINDER LOADER, DEEJAY R 848.9 SPRAIN/STRAIN OTHER UNSPEC SITE 05/16/2009 FRANKIE MAGAZINE GRINDER LOADER, JORGE ALBERTO S 848.9 SPRAIN/STRAIN OTHER UNSPEC SITE 05/16/2009 CHARIS MAGAZINE GRINDER LOADER, SAMPSON 848.9 SPRAIN/STRAIN OTHER UNSPEC SITE 05/16/2009 CHARIS MAGAZINE GRINDER LOADER SAMPSON 848.9 SPRAIN/STRAIN OTHER UNSPEC SITE 05/16/2009 MADL MAGAZINE GRINDER LOADER, RICHARD L 848.9 SPRAIN/STRAIN OTHER UNSPEC SITE 05/16/2009 CHARIS MAGAZINE GRINDER LOADER, SAMPSON 848.9 SPRAIN/STRAIN OTHER UNSPEC SITE 05/17/2009 BK LANGSTON APRN 719.45 PAIN IN JOINT, PELVIC REGION AND THIGH 05/17/2009 MELISSA PANDYA VERENA JIMENEZH 719.45 PAIN IN JOINT, PELVIC REGION AND THIGH 05/17/2009 719.45 PAIN IN JOINT, PELVIC REGION AND THIGH 05/17/2009 719.45 PAIN IN JOINT, PELVIC REGION AND THIGH 05/17/2009 MELISSA PANDYA VERENA JIMENEZH 719.45 PAIN IN JOINT, PELVIC REGION AND THIGH 05/17/2009 ADRIANA HILL MD 719.45 PAIN IN JOINT, PELVIC REGION AND THIGH 05/17/2009 JORGE ALBERTO DAVID APRN S 719.45 PAIN IN JOINT, PELVIC REGION AND THIGH 05/17/2009 MELISSA PANDYA VERENA CONY 719.45 PAIN IN JOINT, PELVIC REGION AND THIGH 05/17/2009 LLOYD STOLL DO K 719.45 PAIN IN JOINT, PELVIC REGION AND THIGH 05/17/2009 FRANKIE MAGAZINE GRINDER LOADER, JORGE ALBERTO S 719.45 PAIN IN JOINT, PELVIC REGION AND THIGH 05/17/2009 TORRES APRN, VERENA JIMENEZH 719.45 PAIN IN JOINT, PELVIC REGION AND THIGH 05/17/2009 ELSIE MAGAZINE GRINDER LOADER DEEJAY R 719.45 PAIN IN JOINT, PELVIC REGION AND THIGH 05/17/2009 FRANKIE MAGAZINE GRINDER LOADER, JORGE ALBERTO S 719.45 PAIN IN JOINT, PELVIC REGION AND THIGH 05/17/2009 CHARIS MAGAZINE GRINDER LOADER, SAMPSON 719.45 PAIN IN JOINT, PELVIC REGION AND THIGH 05/17/2009 CHARIS MAGAZINE GRINDER LOADER, SAMPSON 719.45 PAIN IN JOINT, PELVIC REGION AND THIGH 05/17/2009 KAITLYNN MAGAZINE GRINDER LOADERRICHARD Noe 719.45 PAIN IN JOINT, PELVIC REGION AND THIGH 05/17/2009 CHARIS MAGAZINE GRINDER LOADER, SAMPSON 719.45 PAIN IN JOINT, PELVIC REGION AND THIGH 06/19/2009 BK LANGSTON APRN 626.2 MENORRHAGIA 06/19/2009 MELISSA PANDYA VERENA JIMENEZH 626.2 MENORRHAGIA 06/19/2009 626.2 MENORRHAGIA 06/19/2009 626.2 MENORRHAGIA 06/19/2009 MELISSA PANDYA VERENA CONY 626.2 MENORRHAGIA 06/19/2009 ADRIANA HILL MD 626.2 MENORRHAGIA 06/19/2009 FRANKIE PANDYA, JORGE ALBERTO S 626.2 MENORRHAGIA 06/19/2009 MELISSA PANDYA VERENA CONY 626.2 MENORRHAGIA 06/19/2009 LLOYD STOLL DO K 626.2 MENORRHAGIA 06/19/2009 FRANKIE MAGAZINE GRINDER LOADER, JORGE ALBERTO S 626.2 MENORRHAGIA 06/19/2009 TORRESVERENA VALENCIA APRN 626.2 MENORRHAGIA 06/19/2009 NOHEMI ZIMMERMAN APRNINA R 626.2 MENORRHAGIA 06/19/2009 FRANKIE MAGAZINE GRINDER LOADER, JORGE ALBERTO S 626.2 MENORRHAGIA 06/19/2009 CHARIS MAGAZINE GRINDER LOADER, SAMPSON 626.2 MENORRHAGIA 06/19/2009 CHARIS MAGAZINE GRINDER LOADER, SAMPSON 626.2 MENORRHAGIA 06/19/2009 RICHARD CALDERÓN APRN 626.2 MENORRHAGIA 06/19/2009 CHARIS SAMPSON PANDYA 626.2 MENORRHAGIA 06/27/2009 CHIDI LANGSTON APRNIE Laurie 296.90 MO MOOD DIS NOS 06/27/2009 BK LANGSTON APRN 301.83 PD BORDERLINE 06/27/2009 MELISSA PANDYA VERENA DONNELLY 296.90 MO MOOD DIS NOS 06/27/2009 MELISSA PANDYA VERENA DONNELLY 301.83 PD BORDERLINE 06/27/2009 296.90 MO MOOD DIS NOS 06/27/2009 301.83 PD BORDERLINE 06/27/2009 296.90 MO MOOD DIS NOS 06/27/2009 301.83 PD BORDERLINE 06/27/2009 MELISSA PANDYA VERENA DONNELLY 296.90 MO MOOD DIS NOS 06/27/2009 MELISSA PANDYA VERENA DONNELLY 301.83 PD BORDERLINE 06/27/2009 ADRIANA HILL MD 296.90 MO MOOD DIS NOS 06/27/2009 ADRIANA HILL MD 301.83 PD BORDERLINE 06/27/2009 FRANKIE PANDYA, JORGE ALBERTO S 296.90 MO MOOD DIS NOS 06/27/2009 FRANKIE PANDYA, JORGE ALBERTO S 301.83 PD BORDERLINE 06/27/2009 MELISSA PANDYA VERENA DONNELLY 296.90 MO MOOD DIS NOS 06/27/2009 TORRES MAGAZINE GRINDER LOADER, VERENA DONNELLY 301.83 PD BORDERLINE 06/27/2009 STOLL DO, LLOYD K 296.90 MO MOOD DIS NOS 06/27/2009 STOLL DO, LLOYD K 301.83 PD BORDERLINE 06/27/2009 FRANKIE TROYN, JORGE ALBERTO S 296.90 MO MOOD DIS NOS 06/27/2009 FRANKIE TROYN, JORGE ALBERTO S 301.83 PD BORDERLINE 06/27/2009 MELISSA PANDYA VERENA DONNELLY 296.90 MO MOOD DIS NOS 06/27/2009 MELISSA PANDYA VERENA JIMENEZH 301.83 PD BORDERLINE 06/27/2009 ELSIE MAGAZINE GRINDER LOADER, DEEJAY R 296.90 MO MOOD DIS NOS 06/27/2009 ELSIE RTOYN, DEEJAY R 301.83 PD BORDERLINE 06/27/2009 FRANKEI PANDYA, JORGE ALBERTO S 296.90 MO MOOD DIS NOS 06/27/2009 HOANG DAVID APRNNDA S 301.83 PD BORDERLINE 06/27/2009 CHARIS MAGAZINE GRINDER LOADER, SAMPSON 296.90 MO MOOD DIS NOS 06/27/2009 CHARIS MAGAZINE GRINDER LOADER, SAMPSON 301.83 PD BORDERLINE 06/27/2009 CHARIS MAGAZINE GRINDER LOADER, SAMPSON 296.90 MO MOOD DIS NOS 06/27/2009 CHARIS MAGAZINE GRINDER LOADER, SAMPSON 301.83 PD BORDERLINE 06/27/2009 MADL MAGAZINE GRINDER LOADER, RICHARD L 296.90 MO MOOD DIS NOS 06/27/2009 MADL MAGAZINE GRINDER LOADER, RICHARD L 301.83 PD BORDERLINE 06/27/2009 CHARIS MAGAZINE GRINDER LOADER, SAMPSON 296.90 MO MOOD DIS NOS 06/27/2009 CHARIS MAGAZINE GRINDER LOADER, SAMPSON 301.83 PD BORDERLINE 07/18/2009 BK LNAGSTON APRN 214.1 LIPOMA OF OTHER SKIN AND SUBCUTANEOUS TISSUE 07/18/2009 VERENA TORRES APRN 214.1 LIPOMA OF OTHER SKIN AND SUBCUTANEOUS TISSUE 07/18/2009 214.1 LIPOMA OF OTHER SKIN AND SUBCUTANEOUS TISSUE 07/18/2009 214.1 LIPOMA OF OTHER SKIN AND SUBCUTANEOUS TISSUE 07/18/2009 VERENA TORRES APRN 214.1 LIPOMA OF OTHER SKIN AND SUBCUTANEOUS TISSUE 07/18/2009 SERGIO HAMPTON, ADRIANA Noe 214.1 LIPOMA OF OTHER SKIN AND SUBCUTANEOUS TISSUE 07/18/2009 JORGE ALBERTO DAVID APRN S 214.1 LIPOMA OF OTHER SKIN AND SUBCUTANEOUS TISSUE 07/18/2009 VERENA TORRES APRN 214.1 LIPOMA OF OTHER SKIN AND SUBCUTANEOUS TISSUE 07/18/2009 LLOYD STOLL DO 214.1 LIPOMA OF OTHER SKIN AND SUBCUTANEOUS TISSUE 07/18/2009 ARABELLA DAVID APRNA S 214.1 LIPOMA OF OTHER SKIN AND SUBCUTANEOUS TISSUE 07/18/2009 VERENA TORRES APRN 214.1 LIPOMA OF OTHER SKIN AND SUBCUTANEOUS TISSUE 07/18/2009 DEEJAY ZIMMERMAN APRN 214.1 LIPOMA OF OTHER SKIN AND SUBCUTANEOUS TISSUE 07/18/2009 ARABELLA DAVID APRNA S 214.1 LIPOMA OF OTHER SKIN AND SUBCUTANEOUS TISSUE 07/18/2009 CHARIS MAGAZINE GRINDER LOADERSAMPSON Noe 214.1 LIPOMA OF OTHER SKIN AND SUBCUTANEOUS TISSUE 07/18/2009 SAMPSON VIZCAINO APRN 214.1 LIPOMA OF OTHER SKIN AND SUBCUTANEOUS TISSUE 07/18/2009 KAITLYNN MUMTAZ RICHARD Sumner 214.1 LIPOMA OF OTHER SKIN AND SUBCUTANEOUS TISSUE 07/18/2009 SAMPSON VIZCAINO APRN 214.1 LIPOMA OF OTHER SKIN AND SUBCUTANEOUS TISSUE 08/01/2009 BK LANGSTON APRN 079.4 HUMAN PAPILLOMAVIRUS IN CONDITIONS CLASSIFIED ELSEWHERE AND OF UNSPECIFIED SITE 08/01/2009 BK LANGSTON APRN 795.01 ASCUS PAP 08/01/2009 VERENA TORRES APRN 079.4 HUMAN PAPILLOMAVIRUS IN CONDITIONS CLASSIFIED ELSEWHERE AND OF UNSPECIFIED SITE 08/01/2009 VERENA TORRES APRN 795.01 ASCUS PAP 08/01/2009 079.4 HUMAN PAPILLOMAVIRUS IN CONDITIONS CLASSIFIED ELSEWHERE AND OF UNSPECIFIED SITE 08/01/2009 795.01 ASCUS PAP 08/01/2009 079.4 HUMAN PAPILLOMAVIRUS IN CONDITIONS CLASSIFIED ELSEWHERE AND OF UNSPECIFIED SITE 08/01/2009 795.01 ASCUS PAP 08/01/2009 VERENA TORRES APRN 079.4 HUMAN PAPILLOMAVIRUS IN CONDITIONS CLASSIFIED ELSEWHERE AND OF UNSPECIFIED SITE 08/01/2009 VERENA TORRES APRN 795.01 ASCUS PAP 08/01/2009 ADRIANA HILL MD 079.4 HUMAN PAPILLOMAVIRUS IN CONDITIONS CLASSIFIED ELSEWHERE AND OF UNSPECIFIED SITE 08/01/2009 ADRIANA HILL MD 795.01 ASCUS PAP 08/01/2009 JORGE ALBERTO DAVID APRN S 079.4 HUMAN PAPILLOMAVIRUS IN CONDITIONS CLASSIFIED ELSEWHERE AND OF UNSPECIFIED SITE 08/01/2009 JORGE ALBERTO DAVID APRN S 795.01 ASCUS PAP 08/01/2009 VERENA TORRES APRN 079.4 HUMAN PAPILLOMAVIRUS IN CONDITIONS CLASSIFIED ELSEWHERE AND OF UNSPECIFIED SITE 08/01/2009 VERENA TORRES APRN 795.01 ASCUS PAP 08/01/2009 LLOYD STOLL DO K 079.4 HUMAN PAPILLOMAVIRUS IN CONDITIONS CLASSIFIED ELSEWHERE AND OF UNSPECIFIED SITE 08/01/2009 LLOYD STOLL DO K 795.01 ASCUS PAP 08/01/2009 JORGE ALBERTO DAVID APRN S 079.4 HUMAN PAPILLOMAVIRUS IN CONDITIONS CLASSIFIED ELSEWHERE AND OF UNSPECIFIED SITE 08/01/2009 FRANKIE PANDYA, JORGE ALBERTO S 795.01 ASCUS PAP 08/01/2009 VERENA TORRES APRN 079.4 HUMAN PAPILLOMAVIRUS IN CONDITIONS CLASSIFIED ELSEWHERE AND OF UNSPECIFIED SITE 08/01/2009 VERENA TORRES APRN 795.01 ASCUS PAP 08/01/2009 [employer]SIE MAGAZ[employer] GRINDER LOADER, DEEJAY R 079.4 HUMAN PAPILLOMAVIRUS IN CONDITIONS CLASSIFIED ELSEWHERE AND OF UNSPECIFIED SITE 08/01/2009 ELSIE MAGAZINE GRINDER LOADER, DEEJAY R 795.01 ASCUS PAP 08/01/2009 FRANKIE MAGAZINE GRINDER LOADER, JORGE ALBERTO S 079.4 HUMAN PAPILLOMAVIRUS IN CONDITIONS CLASSIFIED ELSEWHERE AND OF UNSPECIFIED SITE 08/01/2009 FRANKIE PANDYA, JORGE ALBERTO S 795.01 ASCUS PAP 08/01/2009 CHARIS MAGAZ[employer] GRINDER LOADER, SAMPSON 079.4 HUMAN PAPILLOMAVIRUS IN CONDITIONS CLASSIFIED ELSEWHERE AND OF UNSPECIFIED SITE 08/01/2009 CHARIS MAGAZINE GRINDER LOADER, SAMPSON 795.01 ASCUS PAP 08/01/2009 CHARIS MAGAZINE GRINDER LOADER, SAMPSON 079.4 HUMAN PAPILLOMAVIRUS IN CONDITIONS CLASSIFIED ELSEWHERE AND OF UNSPECIFIED SITE 08/01/2009 CHARIS MAGAZINE GRINDER LOADER, SAMPSON 795.01 ASCUS PAP 08/01/2009 MADL MAGAZINE GRINDER LOADER, RICHARD L 079.4 HUMAN PAPILLOMAVIRUS IN CONDITIONS CLASSIFIED ELSEWHERE AND OF UNSPECIFIED SITE 08/01/2009 MADL MAGAZINE GRINDER LOADER, RICHARD L 795.01 ASCUS PAP 08/01/2009 CHARIS [employer]AZINE GRINDER LOADER, SAMPSON 079.4 HUMAN PAPILLOMAVIRUS IN CONDITIONS CLASSIFIED ELSEWHERE AND OF UNSPECIFIED SITE 08/01/2009 CHARIS [employer] GRINDER LOADER, SAMPSON 795.01 ASCUS PAP 08/30/2009 BK LANGSTON APRN 296.52 MO BIPOLAR I DEPRESSED MODERATE 08/30/2009 VERENA TORRES APRN 296.52 MO BIPOLAR I DEPRESSED MODERATE 08/30/2009 296.52 MO BIPOLAR I DEPRESSED MODERATE 08/30/2009 296.52 MO BIPOLAR I DEPRESSED MODERATE 08/30/2009 VERENA TORRES APRN 296.52 MO BIPOLAR I DEPRESSED MODERATE 08/30/2009 ADRIANA HILL MD 296.52 MO BIPOLAR I DEPRESSED MODERATE 08/30/2009 JORGE ALBERTO DAVID APRN S 296.52 MO BIPOLAR I DEPRESSED MODERATE 08/30/2009 VERENA TORRES APRN 296.52 MO BIPOLAR I DEPRESSED MODERATE 08/30/2009 LLOYD STOLL DO K 296.52 MO BIPOLAR I DEPRESSED MODERATE 08/30/2009 JORGE ALBERTO DAVID APRN S 296.52 MO BIPOLAR I DEPRESSED MODERATE 08/30/2009 TORRESRICH PANDYA VERENA DONNELLY 296.52 MO BIPOLAR I DEPRESSED MODERATE 08/30/2009 DEEJAY ZIMMERMAN APRN R 296.52 MO BIPOLAR I DEPRESSED MODERATE 08/30/2009 JORGE ALBERTO DAVID APRN S 296.52 MO BIPOLAR I DEPRESSED MODERATE 08/30/2009 CHARIS [employer] GR[employer]ER LOADER, SAMPSON 296.52 MO BIPOLAR I DEPRESSED MODERATE 08/30/2009 CHARIS [employer] GRINDER LOADER, SAMPSON 296.52 MO BIPOLAR I DEPRESSED MODERATE 08/30/2009 KAITLYNN PANDYA RICHARD L 296.52 MO BIPOLAR I DEPRESSED MODERATE 08/30/2009 CHARIS MUMTAZ, SAMPSON 296.52 MO BIPOLAR I DEPRESSED MODERATE 05/13/2010 Ot 786.59 05/13/2010 Ot V71.5 06/26/2010 Ot 296.20 06/26/2010 Ot 427.89 06/26/2010 Ot 493.90 06/26/2010 Ot 716.90 06/26/2010 Ot 780.09 06/26/2010 Ot 965.09 06/26/2010 Ot 965.4 06/26/2010 Ot 975.5 06/26/2010 Ot E950.0 06/26/2010 Ot E950.4 06/26/2010 Ot V61.8 06/28/2010 BK LANGSTON APRN 296.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 06/28/2010 BK LANGSTON APRN 304.80 SA POLYSUB DEP 06/28/2010 MELISSA PANDYA VERENA CONY 296.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 06/28/2010 MELISSA PANDYA VERENA CONY 304.80 SA POLYSUB DEP 06/28/2010 296.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 06/28/2010 304.80 SA POLYSUB DEP 06/28/2010 296.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 06/28/2010 304.80 SA POLYSUB DEP 06/28/2010 MELISSA PANDYA VERENA CONY 296.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 06/28/2010 MELISSA PANDYA VERENA CONY 304.80 SA POLYSUB DEP 06/28/2010 ADRIANA HILL MD N 296.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 06/28/2010 ADRIANA HILL MD 304.80 SA POLYSUB DEP 06/28/2010 ARABELLA DAVID APRNA S 296.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 06/28/2010 HOANG DAVID APRNNDA S 304.80 SA POLYSUB DEP 06/28/2010 MELISSA PANDYA VERENA DONNELLY 296.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 06/28/2010 MELISSA PANDYA VERENA DONNELLY 304.80 SA POLYSUB DEP 06/28/2010 STOLL DO, LLOYD K 296.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 06/28/2010 STOLL DO, LLOYD K 304.80 SA POLYSUB DEP 06/28/2010 ARABELLA DAVID APRNA S 296.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 06/28/2010 HOANG DAVID APRNNDA S 304.80 SA POLYSUB DEP 06/28/2010 MELISSA PANDYA VERENA DONNELLY 296.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 06/28/2010 MELISSA PANDYA VERENA DONNELLY 304.80 SA POLYSUB DEP 06/28/2010 ELSIE PANDYA DEEJAY R 296.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 06/28/2010 ELSIE PANDYA DEEJAY R 304.80 SA POLYSUB DEP 06/28/2010 ARABELLA DAVID APRNA S 296.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 06/28/2010 HOANG DAVID APRNNDA S 304.80 SA POLYSUB DEP 06/28/2010 CHARIS MAGAZINE GRINDER LOADER, SAMPSON 296.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 06/28/2010 CHARIS MAGAZINE GRINDER LOADER, SAMPSON 304.80 SA POLYSUB DEP 06/28/2010 CHARIS MAGAZINE GRINDER LOADER, SAMPSON 296.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 06/28/2010 CHARIS MAGAZINE GRINDER LOADER, SAMPSON 304.80 SA POLYSUB DEP 06/28/2010 MADL MAGAZINE GRINDER LOADERROSA ISELA NoeNYA L 296.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 06/28/2010 MADL MAGAZINE GRINDER LOADER, RICHARD L 304.80 SA POLYSUB DEP 06/28/2010 CHARIS MAGAZINE GRINDER LOADER, SAMPSON 296.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 06/28/2010 CHARIS MAGAZINE GRINDER LOADER, SAMPSON 304.80 SA POLYSUB DEP 07/04/2010 BK LANGSTON APRN 304.80 COMBINATIONS OF DRUG DEPENDENCE EXCLUDING OPIOID TYPE DRUG UNSPECIFIED USE 07/04/2010 MELISSA PANDYAVERENA 304.80 COMBINATIONS OF DRUG DEPENDENCE EXCLUDING OPIOID TYPE DRUG UNSPECIFIED USE 07/04/2010 304.80 COMBINATIONS OF DRUG DEPENDENCE EXCLUDING OPIOID TYPE DRUG UNSPECIFIED USE 07/04/2010 304.80 COMBINATIONS OF DRUG DEPENDENCE EXCLUDING OPIOID TYPE DRUG UNSPECIFIED USE 07/04/2010 MELISSA PANDYA VERENA DONNELLY 304.80 COMBINATIONS OF DRUG DEPENDENCE EXCLUDING OPIOID TYPE DRUG UNSPECIFIED USE 07/04/2010 ADRIANA HILL MD 304.80 COMBINATIONS OF DRUG DEPENDENCE EXCLUDING OPIOID TYPE DRUG UNSPECIFIED USE 07/04/2010 JORGE ALBERTO DAVID APRN S 304.80 COMBINATIONS OF DRUG DEPENDENCE EXCLUDING OPIOID TYPE DRUG UNSPECIFIED USE 07/04/2010 MELISSA PANDYA VERENA JIMENEZH 304.80 COMBINATIONS OF DRUG DEPENDENCE EXCLUDING OPIOID TYPE DRUG UNSPECIFIED USE 07/04/2010 LLOYD STOLL DO 304.80 COMBINATIONS OF DRUG DEPENDENCE EXCLUDING OPIOID TYPE DRUG UNSPECIFIED USE 07/04/2010 JORGE ALBERTO DAVID APRN S 304.80 COMBINATIONS OF DRUG DEPENDENCE EXCLUDING OPIOID TYPE DRUG UNSPECIFIED USE 07/04/2010 MELISSA PANDYA VERENA DONNELLY 304.80 COMBINATIONS OF DRUG DEPENDENCE EXCLUDING OPIOID TYPE DRUG UNSPECIFIED USE 07/04/2010 DEEJAY ZIMMERMAN APRN 304.80 COMBINATIONS OF DRUG DEPENDENCE EXCLUDING OPIOID TYPE DRUG UNSPECIFIED USE 07/04/2010 ARABELLA DAVID APRNA S 304.80 COMBINATIONS OF DRUG DEPENDENCE EXCLUDING OPIOID TYPE DRUG UNSPECIFIED USE 07/04/2010 SAMPSON VIZCAINO APRN 304.80 COMBINATIONS OF DRUG DEPENDENCE EXCLUDING OPIOID TYPE DRUG UNSPECIFIED USE 07/04/2010 SAMPSON VIZCAINO APRN 304.80 COMBINATIONS OF DRUG DEPENDENCE EXCLUDING OPIOID TYPE DRUG UNSPECIFIED USE 07/04/2010 RICHARD CALDERÓN APRN 304.80 COMBINATIONS OF DRUG DEPENDENCE EXCLUDING OPIOID TYPE DRUG UNSPECIFIED USE 07/04/2010 SAMPSON VIZCAINO APRN 304.80 COMBINATIONS OF DRUG DEPENDENCE EXCLUDING OPIOID TYPE DRUG UNSPECIFIED USE 07/07/2010 Ot 920 07/07/2010 Ot 924.10 07/07/2010 Ot 924.11 07/07/2010 Ot 959.09 07/07/2010 Ot E000.8 07/07/2010 Ot E849.0 07/07/2010 Ot E960.0 07/08/2010 BK LANGSTON APRN 924.11 CONTUSION OF KNEE 07/08/2010 TORRES MAGAZINE GRINDER LOADER, VERENA JIMENEZH 924.11 CONTUSION OF KNEE 07/08/2010 924.11 CONTUSION OF KNEE 07/08/2010 924.11 CONTUSION OF KNEE 07/08/2010 MELISSA TROYHasmukh VERENA JIMENEZH 924.11 CONTUSION OF KNEE 07/08/2010 ADRIANA HILL MD 924.11 CONTUSION OF KNEE 07/08/2010 ARABELLA DAVID APRNA S 924.11 CONTUSION OF KNEE 07/08/2010 TORRES MAGAZINE GRINDER LOADER, VERENA CONY 924.11 CONTUSION OF KNEE 07/08/2010 LLOYD STOLL DO K 924.11 CONTUSION OF KNEE 07/08/2010 ARABELLA DAVID APRNA S 924.11 CONTUSION OF KNEE 07/08/2010 TORRESRICH TROYHasmukh VERENA CONY 924.11 CONTUSION OF KNEE 07/08/2010 ELSIE PANDYA DEEJAY R 924.11 CONTUSION OF KNEE 07/08/2010 ARABELLA DAVID APRNA S 924.11 CONTUSION OF KNEE 07/08/2010 CHARIS [employer] GRINDER LOADER, SAMPSON 924.11 CONTUSION OF KNEE 07/08/2010 CHARIS MAGAZINE GRINDER LOADER, SAMPSON 924.11 CONTUSION OF KNEE 07/08/2010 MADL RICHARD PANDYA L 924.11 CONTUSION OF KNEE 07/08/2010 CHARIS MAGAZINE GRINDER LOADER, SAMPSON 924.11 CONTUSION OF KNEE 07/25/2010 BK LANGSTON APRN 717.2 DERANGEMENT OF POSTERIOR HORN OF MEDIAL MENISCUS 07/25/2010 MELISSA PANDYA VERENA CONY 717.2 DERANGEMENT OF POSTERIOR HORN OF MEDIAL MENISCUS 07/25/2010 717.2 DERANGEMENT OF POSTERIOR HORN OF MEDIAL MENISCUS 07/25/2010 717.2 DERANGEMENT OF POSTERIOR HORN OF MEDIAL MENISCUS 07/25/2010 MELISSA PANDYA VERENA CONY 717.2 DERANGEMENT OF POSTERIOR HORN OF MEDIAL MENISCUS 07/25/2010 ADRIANA HILL MD 717.2 DERANGEMENT OF POSTERIOR HORN OF MEDIAL MENISCUS 07/25/2010 FRANKIE MAGAZINE GRINDER LOADER, JORGE ALBERTO S 717.2 DERANGEMENT OF POSTERIOR HORN OF MEDIAL MENISCUS 07/25/2010 TORRES MUMTAZ VERENA CONY 717.2 DERANGEMENT OF POSTERIOR HORN OF MEDIAL MENISCUS 07/25/2010 LLOYD STOLL DO K 717.2 DERANGEMENT OF POSTERIOR HORN OF MEDIAL MENISCUS 07/25/2010 FRANKIE MAGAZINE GRINDER LOADER, JORGE ALBERTO S 717.2 DERANGEMENT OF POSTERIOR HORN OF MEDIAL MENISCUS 07/25/2010 MELISSA PANDYA VERENA CONY 717.2 DERANGEMENT OF POSTERIOR HORN OF MEDIAL MENISCUS 07/25/2010 ELSIE MAGAZINE GRINDER LOADER DEEJAY R 717.2 DERANGEMENT OF POSTERIOR HORN OF MEDIAL MENISCUS 07/25/2010 FRANKIE MAGAZINE GRINDER LOADER, JORGE ALBERTO S 717.2 DERANGEMENT OF POSTERIOR HORN OF MEDIAL MENISCUS 07/25/2010 CHARIS MAGAZINE GRINDER LOADER, SAMPSON 717.2 DERANGEMENT OF POSTERIOR HORN OF MEDIAL MENISCUS 07/25/2010 CHARIS MAGAZINE GRINDER LOADER, SAMPSON 717.2 DERANGEMENT OF POSTERIOR HORN OF MEDIAL MENISCUS 07/25/2010 MADL MAGAZINE GRINDER LOADERRICHARD L 717.2 DERANGEMENT OF POSTERIOR HORN OF MEDIAL MENISCUS 07/25/2010 CHARIS MAGAZINE GRINDER LOADER, SAMPSON 717.2 DERANGEMENT OF POSTERIOR HORN OF MEDIAL MENISCUS 08/06/2010 BK LANGSTON APRN 719.46 PAIN IN JOINT INVOLVING LOWER LEG 08/06/2010 MELISSA PANDYA VERENA CONY 719.46 PAIN IN JOINT INVOLVING LOWER LEG 08/06/2010 719.46 PAIN IN JOINT INVOLVING LOWER LEG 08/06/2010 719.46 PAIN IN JOINT INVOLVING LOWER LEG 08/06/2010 MELISSA PANDYA VERENA CONY 719.46 PAIN IN JOINT INVOLVING LOWER LEG 08/06/2010 ADRIANA HILL MD 719.46 PAIN IN JOINT INVOLVING LOWER LEG 08/06/2010 ARABELLA DAVID APRNA S 719.46 PAIN IN JOINT INVOLVING LOWER LEG 08/06/2010 MELISSA PANDYA VERENA CONY 719.46 PAIN IN JOINT INVOLVING LOWER LEG 08/06/2010 LLOYD STOLL DO 719.46 PAIN IN JOINT INVOLVING LOWER LEG 08/06/2010 ARABELLA DAVID APRNA S 719.46 PAIN IN JOINT INVOLVING LOWER LEG 08/06/2010 MELISSA PANDYA VERENA CONY 719.46 PAIN IN JOINT INVOLVING LOWER LEG 08/06/2010 DEEJAY ZIMMERMAN APRN R 719.46 PAIN IN JOINT INVOLVING LOWER LEG 08/06/2010 JORGE ALBERTO DAVID APRN S 719.46 PAIN IN JOINT INVOLVING LOWER LEG 08/06/2010 CHARIS MAGAZINE GRINDER LOADER, SAMPSON 719.46 PAIN IN JOINT INVOLVING LOWER LEG 08/06/2010 CHARIS MAGAZINE GRINDER LOADER, SAMPSON 719.46 PAIN IN JOINT INVOLVING LOWER LEG 08/06/2010 RICHARD CALDERÓN APRN 719.46 PAIN IN JOINT INVOLVING LOWER LEG 08/06/2010 CHARIS MAGAZINE GRINDER LOADER, SAMPSNO 719.46 PAIN IN JOINT INVOLVING LOWER LEG 08/08/2010 BK LANGSTON APRN 844.9 SPRAIN/STRAIN KNEE/LEG 08/08/2010 MELISSA PANDYA VERENA JIMENEZH 844.9 SPRAIN/STRAIN KNEE/LEG 08/08/2010 844.9 SPRAIN/STRAIN KNEE/LEG 08/08/2010 844.9 SPRAIN/STRAIN KNEE/LEG 08/08/2010 MELISSA PANDYA VERENA JIMENEZH 844.9 SPRAIN/STRAIN KNEE/LEG 08/08/2010 SERGIO HAMPTON, ADRIANA N 844.9 SPRAIN/STRAIN KNEE/LEG 08/08/2010 JORGE ALBERTO DAVID APRN S 844.9 SPRAIN/STRAIN KNEE/LEG 08/08/2010 MELISSA PANDYA VERENA JIMENEZH 844.9 SPRAIN/STRAIN KNEE/LEG 08/08/2010 LLOYD STOLL DO 844.9 SPRAIN/STRAIN KNEE/LEG 08/08/2010 JORGE ALBERTO DAVID APRN S 844.9 SPRAIN/STRAIN KNEE/LEG 08/08/2010 MELISSA PANDYA VERENA JIMENEZH 844.9 SPRAIN/STRAIN KNEE/LEG 08/08/2010 DEEJAY ZIMMERMAN APRN R 844.9 SPRAIN/STRAIN KNEE/LEG 08/08/2010 JORGE ALBERTO DAVID APRN S 844.9 SPRAIN/STRAIN KNEE/LEG 08/08/2010 CHARISLÁZARO PANDYA SAMPSON 844.9 SPRAIN/STRAIN KNEE/LEG 08/08/2010 CHARIS MAGAZINE GRINDER LOADER, SAMPSON 844.9 SPRAIN/STRAIN KNEE/LEG 08/08/2010 RICHARD CALDERÓN APRN 844.9 SPRAIN/STRAIN KNEE/LEG 08/08/2010 SAMPSON VIZCAINO APRN 844.9 SPRAIN/STRAIN KNEE/LEG 09/18/2010 BK LANGSTON APRN 535.50 GASTRITIS UNSPEC 09/18/2010 CHIDI LANGSTON APRNIE Laurie 787.03 VOMITING ALONE 09/18/2010 TORRES MAGAZINE GRINDER LOADERVERENA 535.50 GASTRITIS UNSPEC 09/18/2010 MELISSA TROYNVERENA 787.03 VOMITING ALONE 09/18/2010 535.50 GASTRITIS UNSPEC 09/18/2010 787.03 vomiting 09/18/2010 535.50 GASTRITIS UNSPEC 09/18/2010 787.03 vomiting 09/18/2010 TORERS MAGAZINE GRINDER LOADERVERENA 535.50 GASTRITIS UNSPEC 09/18/2010 MELISSA TROYNVERENA 787.03 vomiting 09/18/2010 ADRIANA HILL MD 535.50 GASTRITIS UNSPEC 09/18/2010 ADRIANA HILL MD 787.03 vomiting 09/18/2010 ARABELLA DAVID APRNA S 535.50 GASTRITIS UNSPEC 09/18/2010 ARABELLA DAVID APRNA S 787.03 vomiting 09/18/2010 TORRESRICH RTOYNVERENA 535.50 GASTRITIS UNSPEC 09/18/2010 MELISSA TROYNVERENA 787.03 vomiting 09/18/2010 STOLL DO, LLOYD K 535.50 GASTRITIS UNSPEC 09/18/2010 STOLL DO, LLOYD K 787.03 vomiting 09/18/2010 ARABELLA DAVID APRNA S 535.50 GASTRITIS UNSPEC 09/18/2010 ARABELLA DAVID APRNA S 787.03 VOMITING 09/18/2010 MELISSA MAGAZINE GRINDER LOADERVERENA 535.50 GASTRITIS UNSPEC 09/18/2010 MELISSA PANDYA VERENA DONNELLY 787.03 VOMITING 09/18/2010 DEEJAY ZIMMERMAN APRN R 535.50 GASTRITIS UNSPEC 09/18/2010 DEEJAY ZIMMERMAN APRN R 787.03 VOMITING 09/18/2010 ARABELLA DAVID APRNA S 535.50 GASTRITIS UNSPEC 09/18/2010 JORGE ALBERTO DAVID APRN S 787.03 VOMITING 09/18/2010 CHARIS MAGAZINE GRINDER LOADER, SAMPSON 535.50 GASTRITIS UNSPEC 09/18/2010 CHARIS MAGAZINE GRINDER LOADER, SAMPSON 787.03 VOMITING 09/18/2010 CHARIS MAGAZINE GRINDER LOADER, SAMPSON 535.50 GASTRITIS UNSPEC 09/18/2010 CHARIS MAGAZINE GRINDER LOADER, SAMPSON 787.03 VOMITING 09/18/2010 MADL MAGAZINE GRINDER LOADER, RICHARD L 535.50 GASTRITIS UNSPEC 09/18/2010 MADL MAGAZINE GRINDER LOADER, RICHARD L 787.03 VOMITING 09/18/2010 CHARIS MAGAZINE GRINDER LOADER, SAMPSON 535.50 GASTRITIS UNSPEC 09/18/2010 CHARIS MAGAZINE GRINDER LOADER, SAMPSON 787.03 VOMITING 10/15/2010 BK LANGSTON APRN 300.02 AN GEN ANXIETY 10/15/2010 MELISSA PANDYA VERENA CONY 300.02 AN GEN ANXIETY 10/15/2010 300.02 AN GEN ANXIETY 10/15/2010 300.02 AN GEN ANXIETY 10/15/2010 MELISSA PANDYA VERENA CONY 300.02 AN GEN ANXIETY 10/15/2010 SERGIO HAMPTON, ADRIANA Noe 300.02 AN GEN ANXIETY 10/15/2010 JORGE ALBERTO DAVID APRN S 300.02 AN GEN ANXIETY 10/15/2010 MELISSA PANDYA VERENA CONY 300.02 AN GEN ANXIETY 10/15/2010 LLOYD STOLL DO 300.02 AN GEN ANXIETY 10/15/2010 JORGE ALBERTO DAVID APRN S 300.02 AN GEN ANXIETY 10/15/2010 MELISSA PANDYA VERENA CONY 300.02 AN GEN ANXIETY 10/15/2010 DEEJAY ZIMMERMAN APRN 300.02 AN GEN ANXIETY 10/15/2010 JORGE ALBERTO DAVID APRN S 300.02 AN GEN ANXIETY 10/15/2010 SAMPSON VIZCAINO APRN 300.02 AN GEN ANXIETY 10/15/2010 CHARIS PANDYA SAMPSON 300.02 AN GEN ANXIETY 10/15/2010 RICHARD CALDERÓN APRN L 300.02 AN GEN ANXIETY 10/15/2010 CHARIS PANDYA SAMPSON 300.02 AN GEN ANXIETY 12/23/2010 Ot 599.0 12/23/2010 Ot 625.9 01/10/2011 BK LANGSTON APRN 296.80 MO BIPOLAR NOS 01/10/2011 BK LANGSTON APRN 304.90 SA OTHER SUB ABUSE 01/10/2011 TORRES MAGAZINE GRINDER LOADER, VERENA DONNELLY 296.80 MO BIPOLAR NOS 01/10/2011 TORRES MAGAZINE GRINDER LOADER, VERENA ODNNELLY 304.90 OTHER SUB ABUSE 01/10/2011 296.80 MO BIPOLAR NOS 01/10/2011 304.90 OTHER SUB ABUSE 01/10/2011 296.80 MO BIPOLAR NOS 01/10/2011 304.90 OTHER SUB ABUSE 01/10/2011 TORRES MAGAZINE GRINDER LOADER, VERENA DONNELLY 296.80 MO BIPOLAR NOS 01/10/2011 TORRES MAGAZINE GRINDER LOADER, VERENA CONY 304.90 OTHER SUB ABUSE 01/10/2011 SERGIO HAMPTON, ADRIANA N 296.80 MO BIPOLAR NOS 01/10/2011 ADRIANA HILL MD N 304.90 OTHER SUB ABUSE 01/10/2011 FRANKIE MAGAZINE GRINDER LOADER, JORGE ALBERTO S 296.80 MO BIPOLAR NOS 01/10/2011 FRANKIE MAGAZINE GRINDER LOADER, JORGE ALBERTO S 304.90 OTHER SUB ABUSE 01/10/2011 TORRES MAGAZINE GRINDER LOADER, VERENA DONNELLY 296.80 MO BIPOLAR NOS 01/10/2011 TORRES MAGAZINE GRINDER LOADER, VERENA DONNELLY 304.90 OTHER SUB ABUSE 01/10/2011 STOLL DO, LLOYD K 296.80 MO BIPOLAR NOS 01/10/2011 STOLL DO, LLOYD K 304.90 OTHER SUB ABUSE 01/10/2011 FRANKIE MAGAZINE GRINDER LOADER, JORGE ALBERTO S 296.80 MO BIPOLAR NOS 01/10/2011 FRANKIE MAGAZINE GRINDER LOADER, JORGE ALBERTO S 304.90 OTHER SUB ABUSE 01/10/2011 TORRES MAGAZINE GRINDER LOADER, VERENA DONNELLY 296.80 MO BIPOLAR NOS 01/10/2011 TORRES MAGAZINE GRINDER LOADER, VERENA CONY 304.90 OTHER SUB ABUSE 01/10/2011 ELSIE MAGAZINE GRINDER LOADER, DEEJAY R 296.80 MO BIPOLAR NOS 01/10/2011 ELSIE MAGAZINE GRINDER LOADER, DEEJAY R 304.90 OTHER SUB ABUSE 01/10/2011 FRANKIE MAGAZINE GRINDER LOADER, JORGE ALBERTO S 296.80 MO BIPOLAR NOS 01/10/2011 FRANKIE MAGAZINE GRINDER LOADER, JORGE ALBERTO S 304.90 OTHER SUB ABUSE 01/10/2011 CHARIS MAGAZINE GRINDER LOADER, SAMPSON 296.80 MO BIPOLAR NOS 01/10/2011 CHARIS MAGAZINE GRINDER LOADER, SAMPSON 304.90 OTHER SUB ABUSE 01/10/2011 CHARIS MAGAZINE GRINDER LOADER, SAMPSON 296.80 MO BIPOLAR NOS 01/10/2011 CHARIS MAGAZINE GRINDER LOADER, SAMPSON 304.90 SA OTHER SUB ABUSE 01/10/2011 MADL MAGAZINE GRINDER LOADER, RICHARD L 296.80 MO BIPOLAR NOS 01/10/2011 MADL MAGAZINE GRINDER LOADER, RICHARD L 304.90 SA OTHER SUB ABUSE 01/10/2011 CHARIS MAGAZINE GRINDER LOADER, SAMPSON 296.80 MO BIPOLAR NOS 01/10/2011 CHARIS MAGAZINE GRINDER LOADER, SAMPSON 304.90 OTHER SUB ABUSE 05/01/2011 Ot 300.00 05/12/2011 Ot 599.0 05/12/2011 Ot 789.00 05/26/2011 Ot 521.00 05/26/2011 Ot 525.9 06/16/2011 BK LANGSTON APRN 296.89 MO BIPOLAR II 06/16/2011 VERENA TORRES APRN 296.89 MO BIPOLAR II 06/16/2011 296.89 MO BIPOLAR II 06/16/2011 296.89 MO BIPOLAR II 06/16/2011 VERENA TORRES APRN 296.89 MO BIPOLAR II 06/16/2011 SERGIO HAMPTON, ADRIANA N 296.89 MO BIPOLAR II 06/16/2011 FRANKIE PANDYA JORGE ALBERTO S 296.89 MO BIPOLAR II 06/16/2011 VERENA TORRES APRN 296.89 MO BIPOLAR II 06/16/2011 LLOYD STOLL DO 296.89 MO BIPOLAR II 06/16/2011 FRANKIE PANDYA JORGE ALBERTO S 296.89 MO BIPOLAR II 06/16/2011 VERENA TORRES APRN 296.89 MO BIPOLAR II 06/16/2011 ELSIE PANDYA DEEJAY R 296.89 MO BIPOLAR II 06/16/2011 FRANKIE PANDYA JORGE ALBERTO S 296.89 MO BIPOLAR II 06/16/2011 CHARIS MAGAZINE GRINDER LOADER, SAMPSON 296.89 MO BIPOLAR II 06/16/2011 CHARIS MAGAZINE GRINDER LOADER, SAMPSON 296.89 MO BIPOLAR II 06/16/2011 RAVINDERL MAGAZINE GRINDER LOADER, RICHARD L 296.89 MO BIPOLAR II 06/16/2011 CHARIS MAGAZINE GRINDER LOADER, SAMPSON 296.89 MO BIPOLAR II 08/25/2011 Ot 625.3 08/25/2011 Ot 625.9 09/23/2011 BK LANGSTON APRN 724.2 BACK PAIN, LOWER 09/23/2011 BK LANGSTON APRN 847.9 SPRAIN OF UNSPECIFIED SITE OF BACK 09/23/2011 TORRES MAGAZINE GRINDER LOADER, VERENA JIMENEZH 724.2 BACK PAIN, LOWER 09/23/2011 TORRES MAGAZINE GRINDER LOADER, VERENA JIMENEZH 847.9 SPRAIN OF UNSPECIFIED SITE OF BACK 09/23/2011 724.2 BACK PAIN, LOWER 09/23/2011 847.9 SPRAIN OF UNSPECIFIED SITE OF BACK 09/23/2011 724.2 BACK PAIN, LOWER 09/23/2011 847.9 SPRAIN OF UNSPECIFIED SITE OF BACK 09/23/2011 TORRES MAGAZINE GRINDER LOADER, VERENA JIMENEZH 724.2 BACK PAIN, LOWER 09/23/2011 TORRES MAGAZINE GRINDER LOADER, VERENA CONY 847.9 SPRAIN OF UNSPECIFIED SITE OF BACK 09/23/2011 ADRIANA HILL MD N 724.2 BACK PAIN, LOWER 09/23/2011 ADRIANA HILL MD N 847.9 SPRAIN OF UNSPECIFIED SITE OF BACK 09/23/2011 FRANKIE MAGAZINE GRINDER LOADER, JORGE ALBERTO S 724.2 BACK PAIN, LOWER 09/23/2011 FRANKIE MAGAZINE GRINDER LOADER, JORGE ALBERTO S 847.9 SPRAIN OF UNSPECIFIED SITE OF BACK 09/23/2011 TORRES MAGAZINE GRINDER LOADER, [facility] 724.2 BACK PAIN, LOWER 09/23/2011 TORRES MAGAZINE GRINDER LOADER, [facility] 847.9 SPRAIN OF UNSPECIFIED SITE OF BACK 09/23/2011 STOLL DO, LLOYD K 724.2 BACK PAIN, LOWER 09/23/2011 STOLL DO, LLOYD K 847.9 SPRAIN OF UNSPECIFIED SITE OF BACK 09/23/2011 FRANKIE MAGAZINE GRINDER LOADER, JORGE ALBERTO S 724.2 BACK PAIN, LOWER 09/23/2011 FRANKIE MAGAZINE GRINDER LOADER, JORGE ALBERTO S 847.9 SPRAIN OF UNSPECIFIED SITE OF BACK 09/23/2011 TORRES MAGAZINE GRINDER LOADER, [facility] 724.2 BACK PAIN, LOWER 09/23/2011 TORRES MAGAZINE GRINDER LOADER, VERENA CONY 847.9 SPRAIN OF UNSPECIFIED SITE OF BACK 09/23/2011 ELSIE MAGAZINE GRINDER LOADER, DEEJAY R 724.2 BACK PAIN, LOWER 09/23/2011 ELSIE MAGAZINE GRINDER LOADER, DEEJAY R 847.9 SPRAIN OF UNSPECIFIED SITE OF BACK 09/23/2011 FRANKIE MAGAZINE GRINDER LOADER, JORGE ALBERTO S 724.2 BACK PAIN, LOWER 09/23/2011 FRANKIECOY PANDYA JORGE ALBERTO S 847.9 SPRAIN OF UNSPECIFIED SITE OF BACK 09/23/2011 CHARIS MAGAZINE GRINDER LOADER, SAMPSON 724.2 BACK PAIN, LOWER 09/23/2011 CHARIS MAGAZINE GRINDER LOADER, SAMPSON 847.9 SPRAIN OF UNSPECIFIED SITE OF BACK 09/23/2011 CHARIS MAGAZINE GRINDER LOADER, SAMPSON 724.2 BACK PAIN, LOWER 09/23/2011 CHARIS MAGAZINE GRINDER LOADER, SAMPSON 847.9 SPRAIN OF UNSPECIFIED SITE OF BACK 09/23/2011 MADL MAGAZINE GRINDER LOADER, RICHARD L 724.2 BACK PAIN, LOWER 09/23/2011 MADL MAGAZINE GRINDER LOADER, RICHARD L 847.9 SPRAIN OF UNSPECIFIED SITE OF BACK 09/23/2011 CHARIS MAGAZINE GRINDER LOADER, SAMPSON 724.2 BACK PAIN, LOWER 09/23/2011 CHARIS MAGAZINE GRINDER LOADER, SAMPSON 847.9 SPRAIN OF UNSPECIFIED SITE OF BACK 02/18/2012 Ot 625.9 02/18/2012 Ot 789.09 02/25/2012 BK LANGSTON APRN 625.3 DYSMENORRHEA 02/25/2012 BK LANGSTON APRN V74.5 STD SCREEN 02/25/2012 BK LANGSTON APRN V76.2 CERVICAL CANCER SCREENING (PAP SMEAR) 02/25/2012 VERENA TORRES APRN 625.3 DYSMENORRHEA 02/25/2012 VERENA TORRES APRN V74.5 STD SCREEN 02/25/2012 VERENA TORRES APRN V76.2 CERVICAL CANCER SCREENING (PAP SMEAR) 02/25/2012 625.3 DYSMENORRHEA 02/25/2012 V74.5 STD SCREEN 02/25/2012 V76.2 CERVICAL CANCER SCREENING (PAP SMEAR) 02/25/2012 625.3 DYSMENORRHEA 02/25/2012 V74.5 STD SCREEN 02/25/2012 V76.2 CERVICAL CANCER SCREENING (PAP SMEAR) 02/25/2012 VERENA TORRES APRN 625.3 DYSMENORRHEA 02/25/2012 VERENA TORRES APRN V74.5 STD SCREEN 02/25/2012 MELISSA PANDYA VERENA CONY V76.2 CERVICAL CANCER SCREENING (PAP SMEAR) 02/25/2012 ADRIANA HILL MD N 625.3 DYSMENORRHEA 02/25/2012 ADRIANA HILL MD N V74.5 STD SCREEN 02/25/2012 ADRIANA HILL MD V76.2 CERVICAL CANCER SCREENING (PAP SMEAR) 02/25/2012 JORGE ALBERTO DAVID APRN S 625.3 DYSMENORRHEA 02/25/2012 HOANG DAVID APRNNDA S V74.5 STD SCREEN 02/25/2012 HOANG DAVID APRNNDA S V76.2 CERVICAL CANCER SCREENING (PAP SMEAR) 02/25/2012 MELISSA PANDYA VERENA CONY 625.3 DYSMENORRHEA 02/25/2012 MELISSA PANDYA VERENA CONY V74.5 STD SCREEN 02/25/2012 MELISSA PANDYA VERENA CONY V76.2 CERVICAL CANCER SCREENING (PAP SMEAR) 02/25/2012 STOLL DOLLOYD K 625.3 DYSMENORRHEA 02/25/2012 STOLL XIOMARA NAVARROA K V74.5 STD SCREEN 02/25/2012 STOLL DO LLOYD K V76.2 CERVICAL CANCER SCREENING (PAP SMEAR) 02/25/2012 ARABELLA DAVID APRNA S 625.3 DYSMENORRHEA 02/25/2012 ARABELLA DAVID APRNA S V74.5 STD SCREEN 02/25/2012 ARABELLA DAVID APRNA S V76.2 CERVICAL CANCER SCREENING (PAP SMEAR) 02/25/2012 MELISSA PANDYA VERENA CONY 625.3 DYSMENORRHEA 02/25/2012 MELISSA PANDYA VERENA CONY V74.5 STD SCREEN 02/25/2012 MELISSA PANDYA VERENA CONY V76.2 CERVICAL CANCER SCREENING (PAP SMEAR) 02/25/2012 ELSIE PANDYA DEEJAY R 625.3 DYSMENORRHEA 02/25/2012 ELSIE PANDYA DEEJAY R V74.5 STD SCREEN 02/25/2012 ELSIE PANDYA DEEJAY R V76.2 CERVICAL CANCER SCREENING (PAP SMEAR) 02/25/2012 ARABELLA DAVID APRNA S 625.3 DYSMENORRHEA 02/25/2012 [employer]IE [employer] LOADER, JORGE ALBERTO S V74.5 STD SCREEN 02/25/2012 [employer]IE [employer] LOADER, JORGE ALBERTO S V76.2 CERVICAL CANCER SCREENING (PAP SMEAR) 02/25/2012 CHARIS [employer] GR[employer] LOADER, SAMPSON 625.3 DYSMENORRHEA 02/25/2012 CHARIS [employer] GR[employer]ER LOADER, SAMPSON V74.5 STD SCREEN 02/25/2012 CHARIS [employer] GR[employer]ER LOADER, SAMPSON V76.2 CERVICAL CANCER SCREENING (PAP SMEAR) 02/25/2012 CHARIS [employer] GR[employer] LOADER, SAMPSON 625.3 DYSMENORRHEA 02/25/2012 CHARIS [employer] GR[employer]ER LOADER, SAMPSON V74.5 STD SCREEN 02/25/2012 CHARIS [employer] GR[employer]ER LOADER, SAMPSON V76.2 CERVICAL CANCER SCREENING (PAP SMEAR) 02/25/2012 MADL [employer] LO[employer]ER, RICHARD L 625.3 DYSMENORRHEA 02/25/2012 MADL [employer] LOADER, RICHARD L V74.5 STD SCREEN 02/25/2012 MADL [employer] LOADER, RICHARD L V76.2 CERVICAL CANCER SCREENING (PAP SMEAR) 02/25/2012 CHARIS [employer] GR[employer] LOADER, SAMPSON 625.3 DYSMENORRHEA 02/25/2012 CHARIS [employer] GR[employer]ER LOADER, SAMPSON V74.5 STD SCREEN 02/25/2012 [employer]IS [employer] LOADER, SAMPSON V76.2 CERVICAL CANCER SCREENING (PAP SMEAR) 06/15/2012 Ot 305.1 06/15/2012 Ot 466.0 06/15/2012 Ot 493.92 06/15/2012 Ot 786.2 08/30/2012 Ot 564.00 08/30/2012 Ot 789.00 10/13/2012 461.9 SINUSITIS ACUTE 10/13/2012 786.07 Wheezing 10/13/2012 787.91 diarrhea 10/13/2012 461.9 SINUSITIS ACUTE 10/13/2012 786.07 Wheezing 10/13/2012 787.91 diarrhea 10/13/2012 MELISSA PANDYA VERENA JIMENEZH 461.9 SINUSITIS ACUTE 10/13/2012 MELISSA PANDYA VERENA DONNELLY 786.07 Wheezing 10/13/2012 MELISSA PANDYA VERENA DONNELLY 787.91 diarrhea 10/13/2012 ADRIANA HILL MD 461.9 SINUSITIS ACUTE 10/13/2012 ADRIANA HILL MD N 786.07 Wheezing 10/13/2012 ADRIANA HILL MD N 787.91 diarrhea 10/13/2012 [employer]ER, JORGE ALBERTO S 461.9 SINUSITIS ACUTE 10/13/2012 [employer]IE [employer] LO[employer]ER, JORGE ALBERTO S 786.07 Wheezing 10/13/2012 FR[employer]IE [employer] LOADER, JORGE ALBERTO S 787.91 diarrhea 10/13/2012 TORRES [employer]ER, VERENA DONNELLY 461.9 SINUSITIS ACUTE 10/13/2012 TORRES [employer] LOADER, VERENA DONNELLY 786.07 Wheezing 10/13/2012 TORRES [employer] LOADER, VERENA DONNELLY 787.91 diarrhea 10/13/2012 STOLL DO, LLOYD K 461.9 SINUSITIS ACUTE 10/13/2012 STOLL DO, LLOYD K 786.07 Wheezing 10/13/2012 STOLL DO, LLOYD K 787.91 diarrhea 10/13/2012 [employer]IE [employer] LO[employer]ER, JORGE ALBERTO S 461.9 SINUSITIS ACUTE 10/13/2012 [employer]IE [employer] LO[employer]ER, JORGE ALBERTO S 786.07 WHEEZING 10/13/2012 FR[employer]IE [employer] LO[employer]ER, JORGE ALBERTO S 787.91 DIARRHEA 10/13/2012 TORRES [employer] LOADER, VERENA DONNELLY 461.9 SINUSITIS ACUTE 10/13/2012 [employer]ORRES [employer] LOADER, VERENA DONNELLY 786.07 WHEEZING 10/13/2012 TORRES [employer] LOADER, VERENA DONNELLY 787.91 DIARRHEA 10/13/2012 ELSIE [employer] LOADER, DEEJAY R 461.9 SINUSITIS ACUTE 10/13/2012 ELSIE [employer] LOADER, DEEJAY R 786.07 WHEEZING 10/13/2012 ELSIE [employer] GR[employer]ER LOADER, DEEJAY R 787.91 DIARRHEA 10/13/2012 FR[employer]IE [employer] LOADER, JORGE ALBERTO S 461.9 SINUSITIS ACUTE 10/13/2012 FR[employer]IE [employer] LOADER, JORGE ALBERTO S 786.07 WHEEZING 10/13/2012 FR[employer]IE [employer] LOADER, JORGE ALBERTO S 787.91 DIARRHEA 10/13/2012 CHARIS [employer] LOADER, SAMPSON 461.9 SINUSITIS ACUTE 10/13/2012 CHARIS [employer] LOADER, SAMPSON 786.07 WHEEZING 10/13/2012 CHARIS [employer] GR[employer] LOADER, SAMPSON 787.91 DIARRHEA 10/13/2012 CHARIS [employer] GR[employer] LOADER, SAMPSON 461.9 SINUSITIS ACUTE 10/13/2012 CHARIS [employer] GR[employer] LOADER, SAMPSON 786.07 WHEEZING 10/13/2012 CHARIS [employer] GR[employer] LOADER, SAMPSON 787.91 DIARRHEA 10/13/2012 MADL MAGAZINE GRINDER LOADER, RICHARD L 461.9 SINUSITIS ACUTE 10/13/2012 MADL MAGAZINE GRINDER LOADER, RICHARD L 786.07 WHEEZING 10/13/2012 MADL MAGAZINE GRINDER LOADER, RICHARD L 787.91 DIARRHEA 10/13/2012 CHARIS MAGAZINE GRINDER LOADER, SAMPSON 461.9 SINUSITIS ACUTE 10/13/2012 CHARIS MAGAZINE GRINDER LOADER, SAMPSON 786.07 WHEEZING 10/13/2012 CHARIS MAGAZINE GRINDER LOADER, SAMPSON 787.91 DIARRHEA 11/18/2012 TAMELA HAMPTON, JACQUELINE Kwon Ot 844.9 11/18/2012 TAMELA HAMPTON, JACQUELINE Kwon Ot 959.7 11/18/2012 JACQUELINE RAPP MD Ot E000.8 11/18/2012 TAMELA HAMPTON, JACQUELINE Kwon Ot E849.0 11/18/2012 JACQUELINE RAPP MD Ot E885.9 01/03/2013 TRELL HAMPTON, KATIE Caceres Ot 473.9 01/03/2013 KATIE CAI MD Ot 784.0 01/31/2013 RAMIRO DO, FUAD K Ot 881.00 01/31/2013 RAMIRO DO, FUAD K Ot 891.0 01/31/2013 RAMIRO DO, FUAD K Ot 959.7 01/31/2013 RAMIRO DO, FUAD K Ot E000.8 01/31/2013 RAMIRO DO, FUAD K Ot E849.0 01/31/2013 RAMIRO DO, FUAD K Ot E906.0 01/31/2013 RAMIRO DO, FUAD K Ot V06.1 02/28/2013 RAMIRO DO, FUAD K Ot 372.30 02/28/2013 RAMIRO DO, FUAD K Ot 379.91 04/04/2013 KATIE CAI MD Ot 462 04/04/2013 KATIE CAI MD Ot 493.90 04/29/2013 HOA LEMOS MAGAZINE GRINDER LOADER Ot 724.2 04/29/2013 HOA LEMOS MAGAZINE GRINDER LOADER Ot 724.4 04/29/2013 HOA LEMOS APRN Ot 847.2 04/29/2013 HOA LEMOS MAGAZINE GRINDER LOADER Ot E000.0 04/29/2013 HOA LEMOS MAGAZINE GRINDER LOADER Ot E849.6 04/29/2013 HOA LEMOS MAGAZINE GRINDER LOADER Ot E927.8 05/26/2013 SERGIO HAMPTON, ADRIANA Noe 729.5 PAIN- HAND 05/26/2013 FRANKIE TROYN, JORGE ALBERTO S 729.5 PAIN- HAND 05/26/2013 MELISSA PANDYA VERENA CONY 729.5 PAIN- HAND 05/26/2013 LLOYD STOLL DO K 729.5 PAIN- HAND 05/26/2013 FRANKIE MAGAZINE GRINDER LOADER, JORGE ALBERTO S 729.5 PAIN- HAND 05/26/2013 MELISSA TROYN VERENA CONY 729.5 PAIN- HAND 05/26/2013 ELSIE MAGAZINE GRINDER LOADER, DEEJAY R 729.5 PAIN- HAND 05/26/2013 FRANKIE MAGAZINE GRINDER LOADER JORGE ALBERTO S 729.5 PAIN- HAND 05/26/2013 CHARIS MAGAZINE GRINDER LOADER, SAMPSON 729.5 PAIN- HAND 05/26/2013 CHARIS MAGAZINE GRINDER LOADER, SAMPSON 729.5 PAIN- HAND 05/26/2013 MADL MAGAZINE GRINDER LOADERRICHARD L 729.5 PAIN- HAND 05/26/2013 CHARIS MAGAZINE GRINDER LOADER, SAMPSON 729.5 PAIN- HAND 05/26/2013 TAMELA HAMPTON, JACQUELINE Kwon Ot 729.81 09/07/2013 FRANKIE PANDYA, JORGE ALBERTO S 719.41 PAIN- SHOULDER 09/07/2013 VERENA TORRES APRN 719.41 PAIN- SHOULDER 09/07/2013 LLOYD STOLL DO K 719.41 PAIN- SHOULDER 09/07/2013 FRANKIE MAGAZINE GRINDER LOADER, JORGE ALBERTO S 719.41 PAIN- SHOULDER 09/07/2013 VERENA TORRES APRN 719.41 PAIN- SHOULDER 09/07/2013 ELSIE PANDYA DEEJAY R 719.41 PAIN- SHOULDER 09/07/2013 FRANKIE MAGAZINE GRINDER LOADER, JORGE ALBERTO S 719.41 PAIN- SHOULDER 09/07/2013 CHARIS MAGAZINE GRINDER LOADER, SAMPSON 719.41 PAIN- SHOULDER 09/07/2013 CHARIS MAGAZINE GRINDER LOADER, SAMPSON 719.41 PAIN- SHOULDER 09/07/2013 RICHARD CALDERÓN APRN 719.41 PAIN- SHOULDER 09/07/2013 CHARIS MUMTAZ, SAMPSON 719.41 PAIN- SHOULDER 09/15/2013 LLOYD STOLL DO 726.10 DISORDERS OF BURSAE AND TENDONS IN SHOULDER REGION UNSPECIFIED 09/15/2013 JORGE ALBERTO DAVID APRN S 726.10 DISORDERS OF BURSAE AND TENDONS IN SHOULDER REGION UNSPECIFIED 09/15/2013 MELISSA PANDYA VERENA DONNELLY 726.10 DISORDERS OF BURSAE AND TENDONS IN SHOULDER REGION UNSPECIFIED 09/15/2013 DEEJAY ZIMMERMAN APRN R 726.10 DISORDERS OF BURSAE AND TENDONS IN SHOULDER REGION UNSPECIFIED 09/15/2013 JORGE ALBERTO DAVID APRN S 726.10 DISORDERS OF BURSAE AND TENDONS IN SHOULDER REGION UNSPECIFIED 09/15/2013 CHARIS MUMTAZ, SAMPSON 726.10 DISORDERS OF BURSAE AND TENDONS IN SHOULDER REGION UNSPECIFIED 09/15/2013 CHARIS MAGAZINE GRINDER LOADER, SAMPSON 726.10 DISORDERS OF BURSAE AND TENDONS IN SHOULDER REGION UNSPECIFIED 09/15/2013 RICHARD CALDERÓN APRN L 726.10 DISORDERS OF BURSAE AND TENDONS IN SHOULDER REGION UNSPECIFIED 09/15/2013 CHARIS MAGAZINE GRINDER LOADER, SAMPSON 726.10 DISORDERS OF BURSAE AND TENDONS IN SHOULDER REGION UNSPECIFIED 09/26/2013 JORGE ALBERTO DAVID APRN S 698.9 UNSPECIFIED PRURITIC DISORDER 09/26/2013 TORRESRICH PANDYAVERENA 698.9 UNSPECIFIED PRURITIC DISORDER 09/26/2013 DEEJAY ZIMMERMAN APRN R 698.9 UNSPECIFIED PRURITIC DISORDER 09/26/2013 JORGE ALBERTO DAVID APRN S 698.9 UNSPECIFIED PRURITIC DISORDER 09/26/2013 CHARIS MAGAZINE GRINDER LOADER, SAMPSON 698.9 UNSPECIFIED PRURITIC DISORDER 09/26/2013 CHARIS MAGAZINE GRINDER LOADER, SAMPSON 698.9 UNSPECIFIED PRURITIC DISORDER 09/26/2013 RICHARD CALDERÓN APRN L 698.9 UNSPECIFIED PRURITIC DISORDER 09/26/2013 CHARIS MAGAZINE GRINDER LOADER, SAMPSON 698.9 UNSPECIFIED PRURITIC DISORDER 03/10/2014 DEEJAY ZIMMERMAN APRN R 787.02 NAUSEA ALONE 03/10/2014 ELSIE MAGAZINE GRINDER LOADER, DEEJAY R 789.00 ABDOMINAL PAIN UNSPECIFIED SITE 03/10/2014 FRANKIE PANDYA, JORGE ALBERTO S 787.02 NAUSEA ALONE 03/10/2014 FRANKIE PANDYA, JORGE ALBERTO S 789.00 ABDOMINAL PAIN UNSPECIFIED SITE 03/10/2014 CHARIS MAGAZINE GRINDER LOADER, SAMPSON 787.02 NAUSEA ALONE 03/10/2014 CHARIS MAGAZINE GRINDER LOADER, SAMPSON 789.00 ABDOMINAL PAIN UNSPECIFIED SITE 03/10/2014 CHARIS MAGAZINE GRINDER LOADER, SAMPSON 787.02 NAUSEA ALONE 03/10/2014 CHARIS MAGAZINE GRINDER LOADER, SAMPSON 789.00 ABDOMINAL PAIN UNSPECIFIED SITE 03/10/2014 MADL MAGAZINE GRINDER LOADER, RICHARD L 787.02 NAUSEA ALONE 03/10/2014 MADL MAGAZINE GRINDER LOADER, RICHARD L 789.00 ABDOMINAL PAIN UNSPECIFIED SITE 03/10/2014 CHARIS MAGAZINE GRINDER LOADER, SAMPSON 787.02 NAUSEA ALONE 03/10/2014 CHARIS MAGAZINE GRINDER LOADER, SAMPSON 789.00 ABDOMINAL PAIN UNSPECIFIED SITE 03/10/2014 TAMELA HAMPTON, JACQUELINE Kwon Ot 305.1 03/10/2014 JACQUELINE RAPP MD Ot 789.04 05/11/2014 FRANKIE PANDYA, JORGE ALBERTO S 719.46 PAIN IN JOINT INVOLVING LOWER LEG 05/11/2014 CHARIS MAGAZINE GRINDER LOADER, SAMPSON 719.46 PAIN IN JOINT INVOLVING LOWER LEG 05/11/2014 CHARIS MAGAZINE GRINDER LOADER, SAMPSON 719.46 PAIN IN JOINT INVOLVING LOWER LEG 05/11/2014 MADL MAGAZINE GRINDER LOADER, RICHARD L 719.46 PAIN IN JOINT INVOLVING LOWER LEG 05/11/2014 CHARIS MAGAZINE GRINDER LOADER, SAMPSON 719.46 PAIN IN JOINT INVOLVING LOWER LEG 08/30/2014 MADL MAGAZINE GRINDER LOADER, RICHARD L 719.47 PAIN IN JOINT INVOLVING ANKLE AND FOOT 08/30/2014 CHARIS MAGAZINE GRINDER LOADER, SAMPSON 719.47 PAIN IN JOINT INVOLVING ANKLE AND FOOT 08/29/2015 FUAD RUBIO DO Ot F12.10 CANNABIS ABUSE, UNCOMPLICATED 08/29/2015 FUAD RUBIO DO Ot F17.210 NICOTINE DEPENDENCE, CIGARETTES, UNCOMPL 08/29/2015 FUAD RUBIO DO Ot F19.10 OTHER PSYCHOACTIVE SUBSTANCE ABUSE, UNCO 08/29/2015 FUAD RUBIO DO Ot M79.622 PAIN IN LEFT UPPER ARM 08/29/2015 RAMIRO , FUAD Kwon Ot R07.89 OTHER CHEST PAIN 08/29/2015 Ot 836.0 08/29/2015 Ot 836.1 08/29/2015 Ot E000.8 08/29/2015 Ot E928.9 08/30/2015 CHANNING DO, FUAD Kwon Ot F12.10 08/30/2015 RAMIRO DO, FUAD Kwon Ot F17.210 08/30/2015 RAMIRO DO, FUAD K Ot F19.10 08/30/2015 RAMIRO DO, FUAD Kwon Ot M79.622 08/30/2015 CHANNING DO, FUAD Kwon Ot R07.89 09/04/2015 CHANNING , FUAD Kwon Ot F12.10 09/04/2015 RAMIRO , FUAD Kwon Ot F17.210 09/04/2015 CHANNING DO, FUAD Kwon Ot F19.10 09/04/2015 CHANNING DO, FUAD Kwon Ot M79.622 09/04/2015 CHANNING , FUAD Kwon Ot R07.89 11/12/2015 CHANNING , FUAD Kwon Ot F17.210 NICOTINE DEPENDENCE, CIGARETTES, UNCOMPL 11/12/2015 RAMIRO , FUAD K Ot R42 DIZZINESS AND GIDDINESS 11/14/2015 RAMIRO , FUAD K Ot F17.210 NICOTINE DEPENDENCE, CIGARETTES, UNCOMPL 11/14/2015 RAMIRO , FUAD K Ot R42 DIZZINESS AND GIDDINESS 01/07/2016 Ot 285.9 01/07/2016 Ot 338.18 12/07/2016 ENEIDA SELBY MAGAZINE GRINDER LOADER Ot 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 12/17/2016 ENEIDA SELBY MAGAZINE GRINDER LOADER Ot 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 03/05/2018 ARLENE BRENNER APRN Ot M17.12 UNILATERAL PRIMARY OSTEOARTHRITIS, LEFT 03/05/2018 ARLENE BRENNER APRN Ot S83.095A OTHER DISLOCATION OF LEFT PATELLA, INITI 03/05/2018 ARLENE BRENNER APRN Ot W19.XXXA UNSPECIFIED FALL, INITIAL ENCOUNTER 03/18/2018 ARLENE BRENNER APRN Ot M17.12 UNILATERAL PRIMARY OSTEOARTHRITIS, LEFT 03/18/2018 ARLENE BRENNER APRN Ot S83.095A OTHER DISLOCATION OF LEFT PATELLA, INITI 03/18/2018 ARLENE BRENNER MAGAZINE GRINDER LOADER Ot W19.XXXA UNSPECIFIED FALL, INITIAL ENCOUNTER 03/24/2018 ARLENE BRENNER MAGAZINE GRINDER LOADER Ot R60.0 LOCALIZED EDEMA 04/06/2018 ENEIDA SELBY MAGAZINE GRINDER LOADER Ot 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 04/06/2018 ARLENE BRENNER MAGAZINE GRINDER LOADER Ot M17.12 UNILATERAL PRIMARY OSTEOARTHRITIS, LEFT 04/06/2018 ARLENE BRENNER MAGAZINE GRINDER LOADER Ot S83.095A OTHER DISLOCATION OF LEFT PATELLA, INITI 04/06/2018 ARLENE BRENNER MAGAZINE GRINDER LOADER Ot W19.XXXA UNSPECIFIED FALL, INITIAL ENCOUNTER 04/06/2018 ARLENE BRENNER MAGAZINE GRINDER LOADER Ot R60.0 LOCALIZED EDEMA 04/07/2018 ARLENE BRENNER MAGAZINE GRINDER LOADER Ot R60.0 LOCALIZED EDEMA 04/09/2018 ARLENE BRENNER MAGAZINE GRINDER LOADER Ot S83.095D OTHER DISLOCATION OF LEFT PATELLA, SUBSE 04/09/2018 ARLENE BRENNER MAGAZINE GRINDER LOADER Ot S83.242A OTH TEAR OF MEDIAL MENISCUS, CURRENT INJ 04/09/2018 ARLENE BRENNER MAGAZINE GRINDER LOADER Ot S83.512A SPRAIN OF ANTERIOR CRUCIATE LIGAMENT OF 04/14/2018 ARLENE BRENNER MAGAZINE GRINDER LOADER Ot S83.095D OTHER DISLOCATION OF LEFT PATELLA, SUBSE 04/14/2018 ARLENE BRENNER MAGAZINE GRINDER LOADER Ot S83.242A OTH TEAR OF MEDIAL MENISCUS, CURRENT INJ 04/14/2018 ARLENE BRENNER MAGAZINE GRINDER LOADER Ot S83.512A SPRAIN OF ANTERIOR CRUCIATE LIGAMENT OF 05/05/2018 ARLENE BRENNER MAGAZINE GRINDER LOADER Ot S83.095D OTHER DISLOCATION OF LEFT PATELLA, SUBSE 05/05/2018 ARLENE BRENNER MAGAZINE GRINDER LOADER Ot S83.242A OTH TEAR OF MEDIAL MENISCUS, CURRENT INJ 05/05/2018 ARLENE BRENNER MAGAZINE GRINDER LOADER Ot S83.512A SPRAIN OF ANTERIOR CRUCIATE LIGAMENT OF Procedures Code Description [place] [address] THERAPUTIC INJ SQ/IM 10/13/2012 J2550 PHENERGAN INJECTION UP TO 50 MG 10/13/2012 42332 ROUTINE VENIPUNCTURE 06/07/2013 22983 RA FACTOR 06/07/2013 ANAANA COLETTE ANALYZER (SCREEN) 06/07/2013 10656 ESR/SED RATE 06/07/2013 32420 XRAY SHOULDER LEFT COMP 2 VIEWS 09/07/2013 92529 JOINT INJECTION- LARGE JOINT (SPECIFY MEDCIN DESCRIPTION) 09/15/2013 37118 MRI EXTREMITY JOINT, UPPER LEFT, W/O CONTRAST 09/15/[address] ABDOMEN & PELVIS W/ & W/O CONTRAST 03/10/2014 83735 CMP 03/10/2014 62417 UA LONG DIP 03/10/2014 63526 LIPASE 03/10/2014 83019 TEST, SERUM (RML) 03/10/2014 53300 CBC 03/10/2014 92974 SED/ESR RATE (IN HOUSE) 03/10/2014 06434 XRAY KNEE LEFT 3 VIEWS 05/11/2014 47173 XRAY ANKLE R COMP MIN, 3 VIEWS 08/30/2014 Results Test Result Range Blood lactic acid measurement (moles/volume) - 02/17/19 14:54 Blood lactic acid measurement (moles/volume) 3.44 mmol/L 0.50- 2.00 Bacterial blood culture - 02/17/19 14:54 Bacterial blood culture NG NR Complete blood count (CBC) with automated white blood cell (WBC) differential - 02/17/19 14:56 Blood leukocytes automated count (number/volume) 10.6 10*3/uL 4.3-11.0 Blood erythrocytes automated count (number/volume) 4.70 10*6/uL 4.35-5.85 Venous blood hemoglobin measurement (mass/volume) 14.5 g/dL 11.5-16.0 Blood hematocrit (volume fraction) 43 % 35-52 Automated erythrocyte mean corpuscular volume 90 [foz_us] 80-99 Automated erythrocyte mean corpuscular hemoglobin (mass per erythrocyte) 31 pg 25-34 Automated erythrocyte mean corpuscular hemoglobin concentration measurement (mass/volume) 34 g/dL 32-36 Automated erythrocyte distribution width ratio 13.8 % 10.0- 14.5 Automated blood platelet count (count/volume) 229 10*3/uL 130-400 Automated blood platelet mean volume measurement 10.6 [foz_us] 7.4-10.4 Automated blood neutrophils/100 leukocytes 63 % 42-75 Automated blood lymphocytes/100 leukocytes 25 % 12-44 Blood monocytes/100 leukocytes 11 % 0-12 Automated blood eosinophils/100 leukocytes 1 % 0-10 Automated blood basophils/100 leukocytes 0 % 0-10 Blood neutrophils automated count (number/volume) 6.7 10*3 1.8-7.8 Blood lymphocytes automated count (number/volume) 2.7 10*3 1.0-4.0 Blood monocytes automated count (number/volume) 1.1 10*3 0.0- 1.0 Automated eosinophil count 0.1 10*3/uL 0.0-0.3 Automated blood basophil count (count/volume) 0.0 10*3/uL 0.0-0.1 Comprehensive metabolic panel - 02/17/19 14:56 Serum or plasma sodium measurement (moles/volume) 140 mmol/L 135-145 Serum or plasma potassium measurement (moles/volume) 3.2 mmol/L 3.6-5.0 Serum or plasma chloride measurement (moles/volume) 109 mmol/L 98-107 Carbon dioxide 23 mmol/L 21-32 Serum or plasma anion gap determination (moles/volume) 8 mmol/L 5-14 Serum or plasma urea nitrogen measurement (mass/volume) 8 mg/dL 7-18 Serum or plasma creatinine measurement (mass/volume) 0.80 mg/dL 0.60-1.30 Serum or plasma urea nitrogen/creatinine mass ratio 10 NRG Serum or plasma creatinine measurement with calculation of estimated glomerular filtration rate > NRG Serum or plasma glucose measurement (mass/volume) 86 mg/dL 70-105 Serum or plasma calcium measurement (mass/volume) 9.5 mg/dL 8.5-10.1 Serum or plasma total bilirubin measurement (mass/volume) 0.5 mg/dL 0.1-1.0 Serum or plasma alkaline phosphatase measurement (enzymatic activity/volume) 85 U/L 40-136 Serum or plasma aspartate aminotransferase measurement (enzymatic activity/volume) 17 U/L 5-34 Serum or plasma alanine aminotransferase measurement (enzymatic activity/volume) 13 U/L 0-55 Serum or plasma protein measurement (mass/volume) 7.5 g/dL 6.4-8.2 Serum or plasma albumin measurement (mass/volume) 4.4 g/dL 3.2-4.5 CALCIUM CORRECTED 9.2 mg/dL 8.5-10.1 Serum or plasma C reactive protein measurement (mass/volume) - 02/17/19 14:56 Serum or plasma C reactive protein measurement (mass/volume) 0.18 mg/dL 0.00-0.50 Serum or plasma lithium measurement (moles/volume) - 02/17/19 14:56 BNP PT 88.0 pg/mL <100.0 Bacterial blood culture - 02/17/19 15:08 Bacterial blood culture NG NRG Arterial blood gas measurement - 02/17/19 15:21 Blood pCO2 22 mm[Hg] 35-45 Blood pO2 103 mm[Hg] 79-93 Arterial blood bicarbonate measurement (moles/volume) 18 mmol/L 23-27 Arterial blood base excess by calculation -4.1 mmol/L -2.5-2.5 Arterial blood oxygen saturation measurement 99 % 94-100 * Inhaled oxygen flow rate 30 L 21% NRG Arterial blood pH measurement with patient temperature correction 7.53 7.37-7.43 Arterial blood carbon dioxide, total measurement (moles/volume) 18.9 mmol/L 21.0-31.0 Body site RIGHT RADIAL NRG Assessment of wrist artery patency prior to arterial puncture POSITIVE NRG Setting of ventilation mode NO NRG Measurement of body temperature 37.1 NRG Sputum Gram stain - 02/17/19 15:24 Sputum Gram stain MIXED BACTERIAL JOAQUIN NRG Bacterial sputum culture - 02/17/19 15:24 QUANTITY OF GROWTH . NRG Bacterial sputum culture USUAL RESP NRG PT panel in platelet poor plasma by coagulation assay - 02/17/19 15:38 Prothrombin time (PT) in platelet poor plasma by coagulation assay 13.7 s 12.2-14.7 INR in platelet poor plasma or blood by coagulation assay 1.0 0.8-1.4 Activated partial thromboplastin time (aPTT) in platelet poor plasma bycoagulation assay - 02/17/19 15:38 Activated partial thromboplastin time (aPTT) in platelet poor plasma bycoagulation assay 30 s 24-35 Fibrin D-dimer FEU measurement in platelet poor plasma (mass/volume) - 02/17/19 15:38 Fibrin D-dimer FEU measurement in platelet poor plasma (mass/volume) 0.95 ug/mL 0.00-0.49 Complete urinalysis with reflex to culture - 02/17/19 16:10 Urine color determination YELLOW NRG Urine clarity determination CLEAR NRG Urine pH measurement by test strip 7 5-9 Specific gravity of urine by test strip 1.005 1.016-1.022 Urine protein assay by test strip, semi-quantitative NEGATIVE NEGATIVE Urine glucose detection by automated test strip NEGATIVE NEGATIVE Erythrocytes detection in urine sediment by light microscopy NEGATIVE NEGATIVE Urine ketones detection by automated test strip NEGATIVE NEGATIVE Urine nitrite detection by test strip NEGATIVE NEGATIVE Urine total bilirubin detection by test strip NEGATIVE NEGATIVE Urine urobilinogen measurement by automated test strip (mass/volume) NORMAL NORMAL Urine leukocyte esterase detection by dipstick NEGATIVE NEGATIVE Automated urine sediment erythrocyte count by microscopy (number/high power field) RARE NRG Automated urine sediment leukocyte count by microscopy (number/high power field) NONE NRG Bacteria detection in urine sediment by light microscopy TRACE NRG Squamous epithelial cells detection in urine sediment by light microscopy 25-50 NRG Crystals detection in urine sediment by light microscopy NONE NRG Casts detection in urine sediment by light microscopy NONE NRG Mucus detection in urine sediment by light microscopy NEGATIVE NRG Complete urinalysis with reflex to culture CULTURE PENDING NRG Serum or plasma lactate measurement (moles/volume) - 02/17/19 17:15 Serum or plasma lactate measurement (moles/volume) 1.56 mmol/L 0.50-2.00 Methicillin resistant Staphylococcus aureus (MRSA) screening culture - 02/17/19 17:15 Methicillin resistant Staphylococcus aureus (MRSA) screening culture NEG NRG Complete blood count (CBC) with automated white blood cell (WBC) differential - 02/18/19 04:05 Blood leukocytes automated count (number/volume) 7.5 10*3/uL 4.3-11.0 Blood erythrocytes automated count (number/volume) 3.89 10*6/uL 4.35-5.85 Venous blood hemoglobin measurement (mass/volume) 12.1 g/dL 11.5-16.0 Blood hematocrit (volume fraction) 36 % 35-52 Automated erythrocyte mean corpuscular volume 93 [foz_us] 80-99 Automated erythrocyte mean corpuscular hemoglobin (mass per erythrocyte) 31 pg 25-34 Automated erythrocyte mean corpuscular hemoglobin concentration measurement (mass/volume) 33 g/dL 32-36 Automated erythrocyte distribution width ratio 13.7 % 10.0- 14.5 Automated blood platelet count (count/volume) 180 10*3/uL 130-400 Automated blood platelet mean volume measurement 10.7 [foz_us] 7.4-10.4 Automated blood neutrophils/100 leukocytes 95 % 42-75 Automated blood lymphocytes/100 leukocytes 5 % 12-44 Blood monocytes/100 leukocytes 1 % 0-12 Automated blood eosinophils/100 leukocytes 0 % 0-10 Automated blood basophils/100 leukocytes 0 % 0-10 Blood neutrophils automated count (number/volume) 7.1 10*3 1.8-7.8 Blood lymphocytes automated count (number/volume) 0.4 10*3 1.0-4.0 Blood monocytes automated count (number/volume) 0.0 10*3 0.0- 1.0 Automated eosinophil count 0.0 10*3/uL 0.0-0.3 Automated blood basophil count (count/volume) 0.0 10*3/uL 0.0-0.1 Comprehensive metabolic panel - 02/18/19 04:05 Serum or plasma sodium measurement (moles/volume) 140 mmol/L 135-145 Serum or plasma potassium measurement (moles/volume) 4.1 mmol/L 3.6-5.0 Serum or plasma chloride measurement (moles/volume) 112 mmol/L 98-107 Carbon dioxide 17 mmol/L 21-32 Serum or plasma anion gap determination (moles/volume) 11 mmol/L 5-14 Serum or plasma urea nitrogen measurement (mass/volume) 6 mg/dL 7-18 Serum or plasma creatinine measurement (mass/volume) 0.77 mg/dL 0.60-1.30 Serum or plasma urea nitrogen/creatinine mass ratio 8 NRG Serum or plasma creatinine measurement with calculation of estimated glomerular filtration rate > NRG Serum or plasma glucose measurement (mass/volume) 142 mg/dL 70-105 Serum or plasma calcium measurement (mass/volume) 8.1 mg/dL 8.5-10.1 Serum or plasma total bilirubin measurement (mass/volume) 0.2 mg/dL 0.1-1.0 Serum or plasma alkaline phosphatase measurement (enzymatic activity/volume) 65 U/L 40-136 Serum or plasma aspartate aminotransferase measurement (enzymatic activity/volume) 12 U/L 5-34 Serum or plasma alanine aminotransferase measurement (enzymatic activity/volume) 13 U/L 0-55 Serum or plasma protein measurement (mass/volume) 6.2 g/dL 6.4-8.2 Serum or plasma albumin measurement (mass/volume) 3.9 g/dL 3.2-4.5 CALCIUM CORRECTED 8.2 mg/dL 8.5-10.1 Serum or plasma phosphate measurement (mass/volume) - 02/18/19 04:05 Serum or plasma phosphate measurement (mass/volume) 2.2 mg/dL 2.3-4.7 Magnesium - 02/18/19 04:05 Magnesium 2.0 mg/dL 1.6-2.4 Manual absolute plasma cell count - 02/18/19 04:05 Manual blood segmented neutrophils/100 leukocytes 96 % NRG Manual blood lymphocytes/100 leukocytes 4 % NRG Encounters ACCT No. Visit Date/Time Discharge Status Pt. Type Provider Facility Loc./Unit Complaint [id number] 09/12/2014 15:59:00 09/12/2014 23:59:59 CLS Outpatient SAMPSON VIZCAINO APRN [id number] 08/30/2014 10:05:00 08/30/2014 23:59:59 CLS Outpatient RICHARD CALDERÓN APRN [id number] 06/13/2014 11:53:00 06/13/2014 23:59:59 CLS Outpatient SAMPSON VIZCAINO APRN [id number] 06/13/2014 11:53:00 06/13/2014 23:59:59 CLS Outpatient SAMPSON VIZCAINO APRN [id number] 05/11/2014 11:15:00 05/11/2014 23:59:59 CLS Outpatient JORGE ALBERTO DAVID APRN [id number] 03/10/2014 07:59:00 03/10/2014 23:59:59 CLS Outpatient DEEJAY ZIMMERMAN APRN [id number] 01/05/2014 14:49:00 01/05/2014 23:59:59 CLS Outpatient MELISSA PANDYA VERENA CONY [id number] 09/26/2013 09:26:00 09/26/2013 23:59:59 CLS Outpatient JORGE ALBERTO DAVID APRN [id number] 09/15/2013 11:59:00 09/15/2013 23:59:59 CLS Outpatient LLOYD STOLL DO [id number] 09/13/2013 15:01:00 09/13/2013 23:59:59 CLS Outpatient MELISSA PANDYA VERENA CONY [id number] 09/07/2013 12:53:00 09/07/2013 23:59:59 CLS Outpatient JORGE ALBERTO DAVID APRN [id number] 06/07/2013 14:45:00 06/07/2013 23:59:59 CLS Outpatient SERGIO HAMPTON, ADRIANA Noe [id number] 01/01/2013 10:09:00 01/01/2013 23:59:59 CLS Outpatient MELISSA MAGAZINE GRINDER LOADERVERENA [id number] 07/15/2012 15:31:00 07/15/2012 23:59:59 CLS Outpatient MELISSA MAGAZINE GRINDER LOADERVERENA [id number] 02/25/2012 10:04:00 02/25/2012 23:59:59 CLS Outpatient BK LANGSTON APRN [id number] 10/14/2012 12:53:00 Document Registration [id number] 10/13/2012 15:32:00 Document Registration [id number] 02/17/2019 17:05:00 02/18/2019 09:34:00 DIS Inpatient FREDY BOCANEGRA MD [facility] ICU FLU A AND B,ASTHMA EXACERBATION,ANXIETY [id number] 04/08/2018 07:56:00 04/08/2018 23:59:59 CLS Outpatient ARLENE BRENNER [employer] LOADER [facility] RAD PAIN IN LT KNEE [id number] 03/23/2018 08:48:00 03/23/2018 23:59:59 CLS Outpatient ARLENE BRENNER [employer] LOADER [facility] RAD LOCALIZED EDEMA LT LOWER LEG [id number] 03/04/2018 17:18:00 03/04/2018 23:59:59 CLS Outpatient ARLENE BRENNER [employer] LOADER [facility] RAD DISLOCATION OF PATELLOFEMORAL JOINT [id number] 12/01/2016 08:33:00 12/01/2016 23:59:59 CLS Outpatient ENEIDA SELBY [employer] LOADER [facility] RAD MASTODYNIA N64.4 [id number] 11/18/2016 10:42:00 11/18/2016 23:59:59 CLS Preadmit ENEIDA SELBY [employer] [facility] RAD N64.4 [id number] 11/12/2015 07:06:00 11/12/2015 09:05:00 DIS Emergency RAMIOR FUAD NAVARRO [facility] ER SHAKEY/DIZZINESS [id number] 08/29/2015 07:57:00 08/29/2015 11:21:00 DIS Emergency RAMIROFUAD Fairchild DO [facility] ER [id number] 03/10/2014 09:16:00 03/10/2014 12:16:00 DIS Emergency JACQUELINE RAPP MD [facility] ER [id number] 08/13/2013 12:13:00 08/13/2013 23:59:59 CLS Outpatient [id number] 06/13/2013 08:01:00 06/13/2013 23:59:59 CLS Outpatient [id number] 05/26/2013 07:17:00 05/26/2013 08:40:00 DIS Emergency JACQUELINE RAPP MD [facility] ER [id number] 04/29/2013 11:51:00 04/29/2013 14:37:00 DIS Emergency HOA LEMOS APRN [facility] ER [id number] 04/04/2013 06:54:00 04/04/2013 08:12:00 DIS Emergency KATIE CAI MD [facility] ER [id number] 02/28/2013 06:39:00 02/28/2013 07:39:00 DIS Emergency RAMIRO FUAD NAVARRO [facility] ER [id number] 01/31/2013 17:45:00 01/31/2013 19:22:00 DIS Emergency RAMIRO FUAD NAVARRO [facility] ER [id number] 01/03/2013 06:50:00 01/03/2013 08:58:00 DIS Emergency KATIE CAI MD [facility] ER [id number] 11/18/2012 10:30:00 11/18/2012 11:40:00 DIS Emergency JACQUELINE RAPP MD [facility] ER [id number] 08/29/2015 12:53:00 Document Registration [id number] 08/29/2015 12:53:00 Document Registration [id number] 08/30/2012 16:25:00 Document Registration [id number] 06/15/2012 06:35:00 Document Registration [id number] 02/18/2012 16:39:00 Document Registration [id number] 08/25/2011 13:53:00 Document Registration [id number] 05/26/2011 04:06:00 Document Registration [id number] 05/12/2011 18:08:00 Document Registration [id number] 05/01/2011 20:45:00 Document Registration [id number] 12/23/2010 10:44:00 Document Registration [id number] 07/29/2010 16:23:00 Document Registration [id number] 07/07/2010 02:56:00 Document Registration [id number] 06/25/2010 13:10:00 Document Registration [id number] 05/13/2010 15:27:00 Document Registration [id number] 10/25/2006 10:46:00 Document Registration
== END 2019-02-18 09:34 | disposition other institution (70) ==
LOC: EDUNIT# 14:50 → ER 14:52 → ICU 15:58 → UNDOADMIN 15:58 → ICU 17:05 → UNDODISIN 02-18 09:56
PROVIDERS: ADMIT Family Medicine; ATTEND Family Medicine
DX: J10.1 Influenza due to other identified influenza virus with other respiratory manifestations (principal); J45.31 Mild persistent asthma with (acute) exacerbation; B37.0 Candidal stomatitis; E83.39 Other disorders of phosphorus metabolism; E83.51 Hypocalcemia; F17.210 Nicotine dependence, cigarettes, uncomplicated; G43.909 Migraine, unspecified, not intractable, without status migrainosus; R79.1 Abnormal coagulation profile; F41.9 Anxiety disorder, unspecified; E87.6 Hypokalemia; F31.9 Bipolar disorder, unspecified; Z91.5 Personal history of self-harm; Z88.8 Allergy status to other drugs, medicaments and biological substances; E87.2 Acidosis; Z91.013 Allergy to seafood; F32.9 Major depressive disorder, single episode, unspecified
CPT/HCPCS: 36415; 36600; 71045; 80053; 81000; 82805; 83605; 83735; 83880; 84100; 85007; 85025; 85027; 85379; 85610; 85730; 86141; 87040; 87070; 87081; 87088; 87205; 93970; 94640; 96361; 96365; 96366; 96372; 96375; G0378

== ENCOUNTER → 2020-04-30 | Outpatient (CLI) | payer BC ==
[~2020-04-30] MED LIST changes: +ACHYD1T PO; +ALBU2.5V4 NEB; +ALPR1TAB7 PO; +BUDE10.2 INH; +CLAR-31 PO; +LORA10TA76 PO; +MELO15TA39 PO; +OSLT75C PO; +RT-ALBUINH IH; -RT-ALBUTEROL/IPRATROPIUM 3 ML (DUONEB) VIAL ONE
--- NOTE | 2020-04-30 14:15 | Diagnostic Imaging Report ---
PROCEDURE: US Non-ob pelvis comp/trans. TECHNIQUE: Multiple Real-time grayscale images were obtained of the pelvis in various projections endovaginally. Transabdominal imaging was also performed. INDICATION: Pelvic pain. FINDINGS: The uterus is anteverted and measures 7.7 x 2.4 x 2.9 cm. The endometrial thickness is 0.6 cm. Both ovaries are normal in size and morphology. There are no adnexal masses. There is no free pelvic fluid. IMPRESSION: Unremarkable pelvic ultrasound. Neither ovary was visualized. Dictated by: Dictated on workstation # [id number]
== END ==
LOC: RAD 12:33
DX: R10.2 Pelvic and perineal pain (principal)
CPT/HCPCS: 76830; 76856

== ENCOUNTER → 2021-01-15 | Outpatient (CLI) | payer BC ==
--- NOTE | 2021-01-15 14:20 | Diagnostic Imaging Report ---
PROCEDURE: US left lower extremity venous. TECHNIQUE: Multiple Real-time grayscale images were obtained over the left lower extremity in various projections. Additional duplex Doppler and color Doppler images were also obtained. INDICATION: Left lower extremity swelling and pain. COMPARISON: None. FINDINGS: The visualized deep and superficial venous system is patent. There is no DVT. IMPRESSION: Negative left lower extremity venous Doppler. Dictated by: Dictated on workstation # [id number]
== END ==
LOC: RAD 11:00
DX: M79.662 Pain in left lower leg (principal); M79.89 Other specified soft tissue disorders

== ENCOUNTER 2022-06-05 15:54 | Emergency (ER) | payer BC ==
[~2022-06-05] VITALS: Ht 162 cm; Wt 99.0 kg
[~2022-06-05 15:54] MED LIST changes: +ALBU8.5H6 IH; -RT-ALBUINH IH; +SCOP1PAT10 TD; -SCOP1PAT11 TD
[2022-06-05] MEDS ORDERED: methylPREDNISolone 125 MG (Solu-MEDROL) VIAL IVP STA (16:08)
[2022-06-05] MEDS ORDERED: ASPIRIN 81 MG CHEW (CHILDREN'S ASA) PO ONE (16:15)
--- NOTE | 2022-06-05 16:25 | ED Cough/URI ---
General Chief Complaint: Respiratory Problems Stated Complaint: TROUBLE BREATHING,CHEST TIGHTNESS,COUGH Nursing Triage Note: ARRIVED VIA AMB FROM [facility] WITH SOA, COUGH, WHEEZING, AND CHEST PRESSURE X3 DAYS. PT HAS BEEN TAKING HER ALBUTEROL INHALER AND BREATHING TX TODAY. COVID AND FLU NEG. History of Present Illness Date Seen by Provider: Jun 05, 2022 Time Seen by Provider: 16:00 Initial Comments 41 year old female referred from [facility] Walk in for chest tightness, cough, and nausea from coughing. Patient has asthma, she was tested at [facility] and is negative for COVID and Flu. She used her inhaler [employer]. Denies cardiac history. Patient ambulated to exam room slowly but SaO2 99-100% on RA. HR 80-90s. Timing/Duration: yesterday Prior Episodes/Possible Cause: occasional episodes Associated Symptoms: chest pain/soreness, cough, shortness of breath Allergies and Home Medications Allergies Coded Allergies: iodine (Verified Allergy, Unknown, 10/23/06) ketorolac (Verified Allergy, Unknown, 07/17/08) Uncoded Allergies: CATS (Allergy, Mild, 05/15/09) SEA FOOD (Allergy, Mild, 12/25/08) Patient Home Medication List Home Medication List Reviewed: Yes Albuterol Sulfate (Albuterol Sulfate) 2.5 Mg/3 Ml Vial.neb, 2.5 MG NEB TID PRN for SHORTNESS OF BREATH, (Reported) Entered as Reported by: WOODROW TORREZ on 02/18/19904 Albuterol Sulfate (Ventolin Hfa) 1 Puff Puff, 2 PUFF IH Q4H PRN for SHORTNESS OF BREATH, (Reported) Entered as Reported by: WOODROW TORREZ on 02/18/19904 Alprazolam (Alprazolam) 1 Mg Tablet, 1 MG PO BID PRN for ANXIETY, (Reported) Entered as Reported by: WOODROW TORREZ on 02/18/19904 Budesonide/Formoterol Fumarate (Symbicort 160-4.5 Mcg Inhaler) 10.2 Gm Hfa.aer.ad, 2 PUFF INH BID, (Reported) Entered as Reported by: WOODROW TORREZ on 02/18/19904 Hydrocodone Bit/Acetaminophen (HYDROcodone/APAP 10/325 TABLET) 1 Each Tablet, 1 TAB PO Q4H PRN for PAIN-MODERATE, (Reported) Entered as Reported by: WOODROW TORREZ on 02/18/19904 Loratadine (Claritin) 10 Mg Tablet, 10 MG PO DAILY, (Reported) Entered as Reported by: WOODROW TORREZ on 02/18/19904 Meloxicam (Meloxicam) 15 Mg Tablet, 15 MG PO DAILY, (Reported) Entered as Reported by: WOODROW TORREZ on 02/18/19904 Oseltamivir Phosphate (Tamiflu) 75 Mg Cap, 75 MG PO Q12H Prescribed by: FREDY BOCANEGRA on 02/18/19933 Prednisone (Prednisone) 20 Mg Tab, 40 MG PO DAILY, (Reported) Entered as Reported by: WOODROW TORREZ on 02/18/19904 Prednisone (Prednisone) 20 Mg Tab, 40 MG PO DAILY Prescribed by: MAGDALENA BARRIOS on 06/05/22 1724 Review of Systems Review of Systems Constitutional: see HPI, malaise EENTM: see HPI, no symptoms reported Respiratory: see HPI, cough, phlegm, short of breath Cardiovascular: no symptoms reported, see HPI Gastrointestinal: no symptoms reported, see HPI Musculoskeletal: no symptoms reported, see HPI All Other Systems Reviewed Negative Unless Noted: Yes Past Ysxwuos-Trjaph-Hrkscm Hx Patient Social History Tobacco Use?: Yes Tobacco type used: Cigarettes Smoking Status: Current Everyday Smoker Substance use?: No Alcohol Use?: Yes Alcohol Frequency: Once in a while Immunizations Up To Date Tetanus Booster (TDap): Less than 5yrs Seasonal Allergies Seasonal Allergies: Yes Past Medical History Surgeries: Yes (RIGHT SALPINGECTOMY FOR ECTOPIC--HAS HAD 2 ECTOPIC PREGNANCIES) Section, Tubal Ligation Respiratory: Yes Asthma Cardiac: No Neurological: Yes Headaches /Migraines Reproductive Disorders: Yes (ECTOPIC PREGNANCIES X 2) [employer] History: Tubal Ligation Sexually Transmitted Disease: No HIV/AIDS: No Genitourinary: Yes Kidney Stones Gastrointestinal: No Musculoskeletal: No Endocrine: No HEENT: No Cancer: No Psychosocial: Yes (OVERDOSES) Anxiety, Suicide Attempts, Bipolar, Depression Integumentary: No Blood Disorders: No Family Medical History Reviewed Nursing Family Hx Physical Exam Vital Signs - First Documented 06/05/22 16:00 Temp 36.7 Pulse 81 Resp 16 B/P (MAP) 132/106 (115) Pulse Ox 99 O2 Delivery Room Air Capillary Refill : Less Than 3 Seconds Height: 5'3" Weight: 207lbs. 0.0oz. 93.803098il; 37.00 BMI Method:Estimated General Appearance: WD/WN, no apparent distress Eyes: Bilateral Eye Normal Inspection, Bilateral Eye PERRL, Bilateral Eye EOMI HEENT: PERRL/EOMI, normal ENT inspection, TMs normal, pharynx normal, other (oral mucosa pink and dry) Respiratory: chest non-tender, lungs clear, decreased breath sounds; No rhonchi, No wheezing Cardiovascular: normal peripheral pulses, regular rate, rhythm Gastrointestinal: normal bowel sounds, non tender, soft Extremities: normal range of motion, non-tender, normal inspection, normal capillary refill Neurologic/Psychiatric: no motor/sensory deficits, alert, normal mood/affect, oriented x 3 Skin: normal color, warm/dry Progress/Results/Core Measures Suspected Sepsis SIRS Temperature: Pulse: 81 Respiratory Rate: 16 Laboratory Tests 06/05/22 16:23: White Blood Count 7.6 Blood Pressure 132 /106 Mean: 115 Laboratory Tests 06/05/22 16:23: Creatinine 0.83, INR Comment 0.9, Platelet Count 259, Total Bilirubin 0.3 Results/Orders Lab Results Laboratory Tests Test 06/05/22 16:23 06/05/22 16:35 Range/Units White Blood Count 7.6 4.3-11.0 10^3/uL Red Blood Count 4.57 3.80-5.11 10^6/uL Hemoglobin 14.3 11.5-16.0 g/dL Hematocrit 41 35-52 % Mean Corpuscular Volume 90 80-99 fL Mean Corpuscular Hemoglobin 31 25-34 pg Mean Corpuscular Hemoglobin Concent 35 32-36 g/dL Red Cell Distribution Width 13.0 10.0-14.5 % Platelet Count 259 130-400 10^3/uL Mean Platelet Volume 10.3 9.0-12.2 fL Immature Granulocyte % (Auto) 0 % Neutrophils (%) (Auto) 56 42-75 % Lymphocytes (%) (Auto) 32 12-44 % Monocytes (%) (Auto) 7 0-12 % Eosinophils (%) (Auto) 5 0-10 % Basophils (%) (Auto) 1 0-10 % Neutrophils # (Auto) 4.2 1.8-7.8 10^3/uL Lymphocytes # (Auto) 2.4 1.0-4.0 10^3/uL Monocytes # (Auto) 0.6 0.0-1.0 10^3/uL Eosinophils # (Auto) 0.3 0.0-0.3 10^3/uL Basophils # (Auto) 0.0 0.0-0.1 10^3/uL Immature Granulocyte # (Auto) 0.0 0.0-0.1 10^3/uL Prothrombin Time 12.1 L 12.2-14.7 SEC INR Comment 0.9 0.8-1.4 Activated Partial Thromboplast Time 33 24-35 SEC Sodium Level 141 135-145 MMOL/L Potassium Level 3.8 3.6-5.0 MMOL/L Chloride Level 108 H 98-107 MMOL/L Carbon Dioxide Level 22 21-32 MMOL/L Anion Gap 11 5-14 MMOL/L Blood Urea Nitrogen 10 7-18 MG/DL Creatinine 0.83 0.60-1.30 MG/DL Estimat Glomerular Filtration Rate 90 BUN/Creatinine Ratio 12 Glucose Level 78 70-105 MG/DL Calcium Level 9.0 8.5-10.1 MG/DL Corrected Calcium 8.7 8.5-10.1 MG/DL Magnesium Level 1.9 1.6-2.4 MG/DL Total Bilirubin 0.3 0.1-1.0 MG/DL Aspartate Amino Transf (AST/SGOT) 49 H 5-34 U/L Alanine Aminotransferase (ALT/SGPT) 73 H 0-55 U/L Alkaline Phosphatase 97 40-136 U/L Myoglobin 46.5 10.0-92.0 NG/ML Troponin I < 0.028 <0.028 NG/ML Total Protein 7.6 6.4-8.2 GM/DL Albumin 4.4 3.2-4.5 GM/DL Urine Color YELLOW Urine Clarity CLEAR Urine pH 6.0 5-9 Urine Specific [place] 1.020 1.016-1.022 Urine Protein NEGATIVE NEGATIVE Urine Glucose (UA) NEGATIVE NEGATIVE Urine Ketones NEGATIVE NEGATIVE Urine Nitrite NEGATIVE NEGATIVE Urine Bilirubin NEGATIVE NEGATIVE Urine Urobilinogen 0.2 < = 1.0 MG/DL Urine Leukocyte Esterase NEGATIVE NEGATIVE Urine RBC (Auto) 2+ H NEGATIVE Urine RBC 2-5 H /HPF Urine WBC NONE /HPF Urine Squamous Epithelial Cells 10-25 H /HPF Urine Crystals NONE /LPF Urine Bacteria FEW H /HPF Urine Casts NONE /LPF Urine Mucus NEGATIVE /LPF Urine Culture Indicated NO My Orders Orders - SOPHIEMAGDALENA Cbc With Automated Diff (06/05/22 16:02) Magnesium (06/05/22 16:02) Ekg Tracing (06/05/22 16:02) Comprehensive Metabolic Panel (06/05/22 16:02) Myoglobin Serum (06/05/22 16:02) Protime With Inr (06/05/22 16:02) Partial Thromboplastin Time (06/05/22 16:02) O2 (06/05/22 16:02) Monitor-Rhythm Ecg Trace Only (06/05/22 16:02) Ed Iv/Invasive Line Start (06/05/22 16:02) Troponin I Cross (06/05/22 16:02) Aspirin Chewable Tablet (Baby Aspirin Ch (06/05/22 16:15) Methylprednisolone Sod Succ (Solu-Medrol (06/05/22 16:08) Ua Culture If Indicated (06/05/22 16:26) Ed Iv/Invasive Line Start (06/05/22 16:29) Ns Iv 1000 Ml (Sodium Chloride 0.9%) (06/05/22 16:30) Chest 1 View, Ap/Pa Only (06/05/22 16:51) Medications Given in ED Current Medications Medications Dose Ordered Sig/Ludwig Route Start Time Stop Time Status Last Admin Dose Admin Aspirin 324 mg ONCE ONCE PO 06/05/22 16:15 06/05/22 16:16 DC 06/05/22 16:38 324 MG Vital Signs/I&O 06/05/22 06/05/22 16:00 17:34 Temp 36.7 Pulse 81 80 Resp 16 16 B/P (MAP) 132/106 (115) 120/97 Pulse Ox 99 99 O2 Delivery Room Air Room Air Capillary Refill : Less Than 3 Seconds Blood Pressure Mean: 115 Progress Note : Time: 16:00 Progress Note patient assessed, will obtain labs. Patient reports Chest X-ray completed at [facility] and clouded here, however not available on our system. Will check labs. VS stable, patient re-assured her oxygen levels and HR are normal. She has exaggerated breathing, RN reports after this provider left the room, patient had normal breathing pattern. Will give SoluMedrol 125 mg IV. 1630 contacted [facility], asked to cloud CXR again. 1650 CXR from [facility] not available on cloud, discussed with patient, will obtain one here. Patient agreeable. 1715 patient has remained SaO2 98-100%, CXR clear. No complaints. Discharge instructions and return precautions reviewed. All questions answered. ECG Initial ECG Impression Date: Jun 05, 2022 Initial ECG Rate: 87 Initial ECG Rhythm: Normal Sinus Initial ECG Intervals: Normal Initial ECG Impression: Normal Initial ECG Comparisson: Unchanged Comment EKG from [facility] reviewed, no ST Elevation. Diagnostic Imaging Diagonstic Imaging: Xray Plain Films/CT/US/NM/MRI: chest Comments NAME: SOFIA MEDELLIN [facility] REC#: [id number] PT STATUS: REG ER : 1980 PHYSICIAN: MAGDALENA BARRIOS ADMIT DATE: 06/05/22/ER Draft Date of Exam:06/05/22 CHEST 1 VIEW, AP/PA ONLY INDICATION: Cough and congestion COMPARISON with 02/17/2019. FINDINGS: The heart size is normal. No vascular congestion. No consolidation. No edema, pneumonia or pleural pathology. IMPRESSION: No acute-appearing abnormality. Dictated on workstation # [id number] Dict: 06/05/221702 Trans: 06/05/221707 [facility] [phone] Interpreted by: MEG AGUIAR Electronically signed by: Reviewed: Reviewed by Me Departure Impression Primary Impression: Cough Qualified Codes: R05.1 - Acute cough Additional Impression: Viral URI with cough Disposition: HOME, SELF-CARE Condition: Improved Departure-Patient Inst. Decision time for Depature: 17:10 Referrals: JASON ORLANDO MD (PCP/Family) Primary Care Physician Patient Instructions: Acute Bronchitis, Adult (DC) Add. Discharge Instructions: Use nebulized breathing treatments and inhalers as directed. Increase water intake, 16 ounces every 2 hours while awake. Take prednisone as directed. Follow-up at [facility] if symptoms are not improving or worsen. Use Cough drops: lemon honey to help with cough and throat. Return to the emergency department for new, urgent healthcare needs. All discharge instructions reviewed with patient and/or family. Voiced understanding. Scripts Prednisone (Prednisone) 20 Mg Tab 40 MG PO DAILY, #6 TAB 0 Refills Prov: MAGDALENA BARRIOS 06/05/22 MAGDALENA BARRIOS Jun 05, 2022 16:25
[2022-06-05] MEDS ORDERED: NS IV 1000 ML 1,000 ML IV SCH (16:30)
[2022-06-05 16:40] LABS: BILIRUBIN,URINE NEGATIVE (NEGATIVE); CLARITY,URINE CLEAR; COLOR,URINE YELLOW; GLUCOSE, URINE (UA) NEGATIVE (NEGATIVE); KETONES,URINE NEGATIVE (NEGATIVE); LEUKOCYTE ESTERASE ,URINE NEGATIVE (NEGATIVE); NITRITE,URINE NEGATIVE (NEGATIVE); PROTEIN,URINE NEGATIVE (NEGATIVE)
[2022-06-05 16:42] LABS: ALBUMIN 4.4 GM/DL (3.2-4.5); BASOPHILS % (AUTO) 1 % (0-10); EOSINOPHILS # (AUTO) 0.3 10^3/uL (0.0-0.3); EOSINOPHILS % (AUTO) 5 % (0-10); HEMATOCRIT 41 % (35-52); HEMOGLOBIN 14.3 g/dL (11.5-16.0); LYMPHOCYTES # (AUTO) 2.4 10^3/uL (1.0-4.0); LYMPHOCYTES % (AUTO) 32 % (12-44); MEAN CORPUSCULAR HEMOGLOBIN 31 pg (25-34); MEAN CORPUSCULAR HGB CONC 35 g/dL (32-36); MEAN CORPUSCULAR VOLUME 90 fL (80-99); MEAN PLATELET VOLUME 10.3 fL (9.0-12.2); MONOCYTES # (AUTO) 0.6 10^3/uL (0.0-1.0); MONOCYTES % (AUTO) 7 % (0-12); NEUTROPHILS # (AUTO) 4.2 10^3/uL (1.8-7.8); NEUTROPHILS % (AUTO) 56 % (42-75); PLATELET COUNT 259 10^3/uL (130-400); POTASSIUM 3.8 MMOL/L (3.6-5.0); WHITE BLOOD COUNT 7.6 10^3/uL (4.3-11.0)
[2022-06-05 16:45] LABS: TOTAL PROTEIN 7.6 GM/DL (6.4-8.2)
[2022-06-05 16:47] LABS: BILIRUBIN,TOTAL 0.3 MG/DL (0.1-1.0)
[2022-06-05 16:48] LABS: CREATININE SERUM 0.83 MG/DL (0.60-1.30)
[2022-06-05 16:51] LABS: INR 0.9 (0.8-1.4); MAGNESIUM 1.9 MG/DL (1.6-2.4); PROTHROMBIN TIME PATIENT 12.1 SEC (12.2-14.7)
--- NOTE | 2022-06-05 17:08 | Diagnostic Imaging Report ---
INDICATION: Cough and congestion COMPARISON with 02/17/2019. FINDINGS: The heart size is normal. No vascular congestion. No consolidation. No edema, pneumonia or pleural pathology. IMPRESSION: No acute-appearing abnormality. Dictated by: Dictated on workstation # [id number]
[2022-06-05 17:09] LABS: BACTERIA,URINE FEW /HPF
[2022-06-05] MEDS ORDERED: PRD20T PO (17:24)
[2022-06-05 17:34] VITALS: BP 120/97
== END 2022-06-05 17:34 | disposition home or self-care (01) ==
LOC: EDUNIT# 15:54 → ER 15:55
DX: J06.9 Acute upper respiratory infection, unspecified (principal); F17.210 Nicotine dependence, cigarettes, uncomplicated
CPT/HCPCS: 36415; 71045; 80053; 81000; 83735; 83874; 84484; 85025; 85610; 85730

== ENCOUNTER → 2022-08-27 | Outpatient (CLI) | payer BC ==
[2022-08-27 14:35] LABS: BILIRUBIN,TOTAL 0.4 MG/DL (0.1-1.0); CALCIUM 9.5 MG/DL (8.5-10.1); CREATININE SERUM 0.85 MG/DL (0.60-1.30); POTASSIUM 3.8 MMOL/L (3.6-5.0); TOTAL PROTEIN 6.8 GM/DL (6.4-8.2)
== END ==
LOC: LAB 13:21
PROVIDERS: ATTEND Family Medicine
DX: Z00.01 Encounter for general adult medical examination with abnormal findings (principal); E78.5 Hyperlipidemia, unspecified; R53.83 Other fatigue
CPT/HCPCS: 36415; 80053; 80061; 84443

== ENCOUNTER 2023-02-26 13:54 | Emergency (ER) | payer BC ==
[~2023-02-26] VITALS: Ht 165 cm; Wt 115.0 kg
[2023-02-26] MEDS ORDERED: NS IV 1000 ML 1,000 ML IV STA (15:15)
--- NOTE | 2023-02-26 15:27 | ED Headache ---
General Chief Complaint: Head/Cervical Problems Stated Complaint: HEADACHES | NAUSEA | DIZZY Source: patient Exam Limitations: no limitations History of Present Illness Date Seen by Provider: Feb 26, 2023 Time Seen by Provider: 15:10 Initial Comments Patient is a 42-year-old female who has a history of chronic headaches and presents with a headache that has waxed and waned for the last 24 hours. She states it seems to alternate sides of her head and is at times global. She took a leftover Imitrex earlier this afternoon without any relief of symptoms. She thinks it was at least a year and a half old tablet. She endorses chronic nasal congestion. She has been nauseated. She endorses a little dizziness. No visual changes. No speech difficulties. No unilateral weakness numbness or tingling. The headache is not thunderclap in onset. She has no recent trauma. She has been having a hard time sleeping due to the headache. No concerns for infectious exposures i.e. COVID. Light makes the head pain worse. Nothing seems to make it any better. Timing/Duration: 24 hours Severity/Quality: severe, sharp Location: global Prior Headaches/Recent Trauma: chronic headaches Modifying Factors: worse with exposure to light; improves with medication Associated Symptoms: nausea/vomiting, nasal congestion (chronic) Allergies and Home Medications Allergies Coded Allergies: iodine (Verified Allergy, Unknown, 10/23/06) Uncoded Allergies: CATS (Allergy, Mild, 05/15/09) SEA FOOD (Allergy, Mild, 12/25/08) Patient Home Medication List Home Medication List Reviewed: Yes Albuterol Sulfate (Albuterol Sulfate) 2.5 Mg/3 Ml Vial.neb, 2.5 MG NEB TID PRN for SHORTNESS OF BREATH, (Reported) Entered as Reported by: WOODROW TORREZ on 02/18/19904 Albuterol Sulfate (Ventolin Hfa) 1 Puff Puff, 2 PUFF IH Q4H PRN for SHORTNESS OF BREATH, (Reported) Entered as Reported by: WOODROW TORREZ on 02/18/19904 Alprazolam (Alprazolam) 1 Mg Tablet, 1 MG PO BID PRN for ANXIETY, (Reported) Entered as Reported by: WOODROW TORREZ on 02/18/19904 Budesonide/Formoterol Fumarate (Symbicort 160-4.5 Mcg Inhaler) 10.2 Gm Hfa.aer.ad, 2 PUFF INH BID, (Reported) Entered as Reported by: WOODROW TORREZ on 02/18/19904 Hydrocodone Bit/Acetaminophen (HYDROcodone/APAP 10/325 TABLET) 1 Each Tablet, 1 TAB PO Q4H PRN for PAIN-MODERATE, (Reported) Entered as Reported by: WOODROW TORREZ on 02/18/19904 Loratadine (Claritin) 10 Mg Tablet, 10 MG PO DAILY, (Reported) Entered as Reported by: WOODROW TORREZ on 02/18/19904 Meloxicam (Meloxicam) 15 Mg Tablet, 15 MG PO DAILY, (Reported) Entered as Reported by: WOODROW TORREZ on 02/18/19904 Ondansetron (Ondansetron Odt) 4 Mg Tab.rapdis, 4 MG SL Q8H PRN for NAUSEA/VOMITING Prescribed by: LEWIS SMITH on 02/26/23 1642 Oseltamivir Phosphate (Tamiflu) 75 Mg Cap, 75 MG PO Q12H Prescribed by: FREDY BOCANEGRA on 02/18/19 09 Prednisone (Prednisone) 20 Mg Tab, 40 MG PO DAILY, (Reported) Entered as Reported by: WOODROW TORREZ on 02/18/19904 Prednisone (Prednisone) 20 Mg Tab, 40 MG PO DAILY Prescribed by: MAGDALENA BARRIOS on 06/05/22 1724 Sumatriptan Succinate (Imitrex) 50 Mg Tab, 50 MG PO ONCE Prescribed by: LEWIS SIMTH on 02/26/23 1642 Review of Systems Review of Systems Constitutional: see HPI Eyes: No Symptoms Reported Ears, Nose, Mouth, Throat: no symptoms reported Respiratory: no symptoms reported Cardiovascular: no symptoms reported Gastrointestinal: nausea, vomiting Genitourinary: no symptoms reported Musculoskeletal: no symptoms reported Past Umeffog-Wzgrzj-Kgskqx Hx Patient Social History Tobacco Use?: Yes Tobacco type used: Cigarettes Substance use?: No Alcohol Use?: Yes Alcohol Frequency: Once in a while Pt feels they are or have been: No Immunizations Up To Date Tetanus Booster (TDap): Less than 5yrs Seasonal Allergies Seasonal Allergies: Yes Past Medical History Surgery/Hospitalization HX: , MIGRAINES, TUBAL, PARTIAL HYST Surgeries: Yes (RIGHT SALPINGECTOMY FOR ECTOPIC--HAS HAD 2 ECTOPIC PREGNANCIES) Section, Tubal Ligation Respiratory: Yes Asthma Cardiac: No Neurological: Yes Headaches /Migraines Reproductive Disorders: Yes (ECTOPIC PREGNANCIES X 2) [employer] History: Tubal Ligation Sexually Transmitted Disease: No HIV/AIDS: No Genitourinary: Yes Kidney Stones Gastrointestinal: No Musculoskeletal: No Endocrine: No HEENT: No Cancer: No Psychosocial: Yes (OVERDOSES) Anxiety, Suicide Attempts, Bipolar, Depression Integumentary: No Blood Disorders: No Physical Exam Vital Signs Vital Signs - First Documented 02/26/23 14:32 Temp 36.1 Pulse 73 Resp 16 B/P (MAP) 155/75 (101) Pulse Ox 99 O2 Delivery Room Air Capillary Refill : Height, Weight, BMI Height: 5'3" Weight: 207lbs. 0.0oz. 93.726732mw; 37.00 BMI Method:Estimated General Appearance: WD/WN, no apparent distress HEENT: PERRL/EOMI, normal ENT inspection, TMs normal Neck: full range of motion, supple Cardiovascular: regular rate, rhythm Respiratory: lungs clear, normal breath sounds, no respiratory distress, no accessory muscle use Gastrointestinal: non tender, soft Extremities: normal range of motion, no pedal edema Psychiatric: alert, oriented x 3 [place] Nerves: normal hearing, normal speech, PERRL; No abnormal speech, No facial asymmetry, No gaze palsy, No tongue deviation to R, No tongue deviation to L Coordination/Gait: normal finger to nose, normal gait Motor/Sensory: no motor deficit, no sensory deficit, no pronator drift Skin: normal color, warm/dry Progress/Results/Core Measures Results/Orders Lab Results Laboratory Tests Test 02/26/23 15:36 Range/Units Sodium Level 141 135-145 MMOL/L Potassium Level 3.7 3.6-5.0 MMOL/L Chloride Level 106 98-107 MMOL/L Carbon Dioxide Level 23 21-32 MMOL/L Anion Gap 12 5-14 MMOL/L Blood Urea Nitrogen 9 7-18 MG/DL Creatinine 0.82 0.60-1.30 MG/DL Estimat Glomerular Filtration Rate 91 BUN/Creatinine Ratio 11 Glucose Level 91 70-105 MG/DL Calcium Level 9.6 8.5-10.1 MG/DL My Orders Orders - LEWIS SMITH MD Ed Iv/Invasive Line Start (02/26/23 15:15) Basic Metabolic Panel (02/26/23 15:15) Ns Iv 1000 Ml (Ns Iv 1000 Ml) (02/26/23 15:15) Ketorolac Injection (Ketorolac Injection (02/26/23 15:30) Prochlorperazine Injection (Prochlorpera (02/26/23 15:30) Diphenhydramine Injection (Diphenhydram (02/26/23 15:30) Medications Given in ED Vital Signs/I&O 02/26/23 02/26/23 14:32 17:08 Temp 36.1 36.1 Pulse 73 62 Resp 16 16 B/P (MAP) 155/75 (101) 140/71 Pulse Ox 99 98 O2 Delivery Room Air Room Air Progress Progress Note : Time: 16:44 Progress Note Patient seen and evaluated by me. Evaluation today includes physical exam, basic metabolic panel. Pertinent physical exam findings well-developed well- nourished 42-year-old female in no acute distress. Blood pressure mildly elevated at 155/75. Normal exam, normal neurologic exam. Differential diagnosis includes tension type headache, migraine, SAH, dehydration. Labs independently reviewed and interpreted by me. Her basic metabolic panel is completely normal. No concerning findings for electrolyte imbalance or dehydration. Patient's headache is treated with Toradol 15 mg IV, Compazine 10 mg and Benadryl 25 mg. She is also given 1 L of IV fluids/normal saline. Patient had complete resolution of her headache. She is provided a prescription for Imitrex and Zofran for home. No concerning findings for subarachnoid hemorrhage, stroke. Consideration for CT head however history and physical do not support the need. Patient is advised to follow-up with her primary care physician. Return precautions are provided in both verbal and written format. All questions were sought and answered. Patient is improved at discharge Departure Impression Primary Impression: Headache Qualified Codes: G44.89 - Other headache syndrome Disposition: 01 HOME, SELF-CARE Condition: Improved Departure-Patient Inst. Decision time for Depature: 16:41 Referrals: JIL DAVID MD (PCP/Family) Primary Care Physician Patient Instructions: Home Headache Remedies Add. Discharge Instructions: Drink plenty of fluids to stay well-hydrated. Dehydration can trigger headaches. Use your Imitrex 1 at headache onset, may repeat a dose 2 hours later. I have prescribed some Zofran/ondansetron for nausea. 1 every 6-8 hours as needed. You can supplement the Imitrex with Tylenol or ibuprofen as needed. Please follow packaging instructions. Follow-up with your primary care provider. Return to the emergency department for any new, concerning or emergent complaints Scripts Ondansetron (Ondansetron Odt) 4 Mg Tab.rapdis 4 MG SL Q8H PRN for NAUSEA/VOMITING, #9 TAB Prov: LEWIS SMITH MD 02/26/23 Sumatriptan Succinate (Imitrex) 50 Mg Tab 50 MG PO ONCE, #9 TAB Prov: LEWIS SMITH MD 02/26/23 Copy Copies To 1: JIL DAVID MD, KATHRYN M MD Feb 26, 2023 15:27
[2023-02-26] MEDS ORDERED: KETOROLAC INJ 15 MG/ML VIAL IVP ONE (15:30)
[2023-02-26] MEDS ORDERED: diphenhydrAMINE INJ 50 MG/ML VIAL IVP ONE (15:30)
[2023-02-26] MEDS ORDERED: PROCHLORPERAZINE INJ 10 MG/2ML VIAL IV ONE (15:30)
[2023-02-26 16:26] LABS: CALCIUM 9.6 MG/DL (8.5-10.1); CREATININE SERUM 0.82 MG/DL (0.60-1.30); POTASSIUM 3.7 MMOL/L (3.6-5.0)
[2023-02-26] MEDS ORDERED: SMTR50T PO (16:42)
[2023-02-26] MEDS ORDERED: ONDA4TAB11 SL (16:42)
[2023-02-26 17:08] VITALS: BP 140/71
== END 2023-02-26 17:08 | disposition home or self-care (01) ==
LOC: EDUNIT# 13:54 → ER 13:56
DX: R51.9 Headache, unspecified (principal); F17.210 Nicotine dependence, cigarettes, uncomplicated; Z86.69 Personal history of other diseases of the nervous system and sense organs
CPT/HCPCS: 36415; 80048